=== PATIENT | female | born 1955 | race Caucasian/White ===

== ENCOUNTER → 2023-10-28 08:35 | Outpatient (REF) | payer MEDICARE, OTHER, SELFPAY | LOC: HWRAD 08:35 | PROVIDERS: ATTENDING PHYSICIAN Student in an Organized Health Care Education/Training Program | DX: R91.1 Solitary pulmonary nodule (principal); J43.9 Emphysema, unspecified | CPT/HCPCS: 71250 ==

== ENCOUNTER 2023-11-27 15:10 | Emergency (ER) | payer MEDICARE, OTHER, SELFPAY ==
[2023-11-27 15:12] VITALS: BP 98/68
--- NOTE | 2023-11-27 15:58 | ED.GENMED ---
History of Present Illness
General
Chief Complaint: Weakness
Source: patient
Exam Limitations: none
Time Seen by Provider: 11/27/23 15:49
Travel History
Have you had any contact with someone who has COVID-19?: No
Do you have any symptoms of coronavirus? Fever > 100 degrees, chills, cough, shortness of breath, sore throat, loss of taste or smell, muscle aches, or headache?: No
History of Present Illness
History of Present Illness:
See MDM
Past History
Past History
ED Past Medical History: HTN, Hypercholesterolemia and Other (Migraines, rectal bleed 09/02/2008, endometriosis, stress incontinence)
ED Past Surgical History: and Other (Laparoscopy)
Social History
Tobacco: Smoker
Alcohol: None
Drug: None
Phy Exam
Physical Exam
Physical Exam:
See MDM
Course
Orders/Labs/Results
Orders:
Orders
11/27/23 15:56
Electrocardiogram (*1) Urgent
Reason for Study: Abdominal Pain
EKG- Treatment ONCE
0.9% Sodium Chloride 1000 ml [Nss] 1,000 ml IV BOLUS
11/27/23 16:08
Complete Blood Count/With Diff Urgent
Comprehensive Metabolic Panel Urgent
Magnesium Urgent
Troponin I Urgent
Abnormal Lab Results
11/27/23
16:08
MCH 35.1 H pg
(27.0-31.0)
Abs Immat Gran (auto) 0.1 H 10^3/uL
(0-0.05)
Absolute Neuts (auto) 8.8 H 10^3/uL
(1.4-6.5)
Absolute Lymphs (auto) 0.9 L 10^3/uL
(1.2-3.4)
Absolute Monos (auto) 0.9 H 10^3/uL
(0.1-0.6)
Immature Gran % 0.6 H %
(0-0.5)
Neutrophils % 81.6 H %
(42.2-75.2)
Lymphocytes % 8.4 L %
(20.5-51.1)
Sodium 132 L mmol/L
(135-145)
Potassium 3.4 L mmol/L
(3.5-5.1)
Chloride 91 L mmol/L
(98-107)
BUN 19 H mg/dl
(7-17)
Creatinine 1.3 H mg/dL
(0.6-1.0)
Glucose 121 H mg/dl
(70-99)
AST 64 H U/L
(14-36)
Total Protein 8.6 H g/dl
(6.3-8.2)
11/27/23 16:08
11/27/23 16:08
Vital Signs
Initial and Last Documented VS:
Initial Vital Signs
Temp Pulse Resp BP Pulse Ox
98.7 F 106 20 98/68 99
11/27/23 15:12 11/27/23 15:12 11/27/23 15:12 11/27/23 15:12 11/27/23 15:12
Last Documented Vital Signs
Temp Pulse Resp BP Pulse Ox
98.7 F 75 18 124/76 99
11/27/23 15:12 11/27/23 18:24 11/27/23 18:24 11/27/23 18:24 11/27/23 18:24
MDM/Problems Addressed
Differential Diagnosis Includes:
HPI and MDM Narrative:
68-year-old female presenting for evaluation of generalized weakness and nausea. Patient states she will randomly throw up. She denies abdominal pain. Patient states she has been feeling weak and fatigue since Thursday. She denies diarrhea.
Patient states she feels like her skin is crawling. States it fontenot. Symptoms are not related to exertion or food intake.
On exam, she appears well-appearing nontoxic. She has mildly dry mucous membranes. Prior records indicate prior history of hyponatremia and hypokalemia. She was recently started on losartan. Discussed that this is less likely a side effect of
the new antihypertensive.
Physical exam
General: Well appearing and non-toxic
HEENT: protecting airway. Dry mucous
Neck: appears supple
CV: No evidence of cyanosis. Regular rate and rhythm
Resp: No accessory muscle use
Abd: Non-distended and nontender
Extremities: No deformities. No leg edema or tenderness
Neuro: alert
Psych: Normal affect
Skin: Intact
Problems Addressed including Acute and Chronic Conditions affecting care:
1. Generalized weakness
Acuity: acute
Prognosis: stable
Details: Will obtain basic blood work
2. Intermittent nausea
Acuity: acute
Prognosis: stable
Details: Will obtain EKG and troponin
3. Dehydration
Acuity: acute
Prognosis: stable
Details: Will provide IV fluids
Updates
On reevaluation after IV fluids, patient states she feels drastically better. She is dressed and walking around the room and feels comfortable going home. Patient asked me to write a prescription for her to excuse her from her flights 11/25- 12/01
Differential Diagnosis (but not limited to): Dehydration, acute kidney injury, hyponatremia,
Testing considered: Right upper quadrant ultrasound but no tenderness elicited to palpation
Drug therapy (if applicable): OTC meds, please see d/c instruction regarding Rx drugs
Amount and/or Complexity of Data Reviewed
Clinical info obtained from: Patient
External data reviewed: N/A
Labs I independently reviewed (but not limited to): Mild hypokalemia and hyponatremia
Radiology: N/A
Pulse Ox: not hypoxic
EKG independently reviewed: sinus rhythm, normal axis, no STEMI
Mutuel Machine Operator: N/A
Critical Care: N/A
Risk of Complication:
Social Determinants of health: Good social support
Discussed with other providers: N/A
Escalation of Care includes Admit/Obs: After being observed in the Emergency Department, pt stable for discharge.
Occasional wrong word or 'sound a like' substitutions may have occurred due to the inherent limitations of voice recognition software. Read the chart carefully and recognize, using context, where substitutions have occurred.
*Critical Care Note
Total Time (30-74mins, 75-104mins- exclusive of procedures): Not Applicable
ED Attending Note
-
Portions of this chart may have been created with voice recognition software.� Occasional wrong word or��sound alike� substitutions may have occurred due to the inherent limitations of voice recognition software.
Discharge Plan
Departure
Patient Disposition: Home (Routine Discharge)
Date of Disposition: 11/27/23
Time of Disposition: 19:26
Patient with high blood pressure during this ER visit?: No
Discharge Problem:
Acute hypokalemia, Acute hyponatremia
Instructions: Dehydration, Adult ED
Prescriptions:
No Action
atorvastatin 20 mg tablet
20 mg PO HS
levothyroxine 100 mcg tablet
100 mcg PO DAILY
raloxifene 60 mg tablet
60 mg PO DAILY
sertraline 50 mg tablet
50 mg PO DAILY
famotidine 40 mg Tablet
40 mg PO DAILY
amitriptyline 50 mg tablet
50 mg PO HS
celecoxib [Celebrex] 100 mg capsule
100 mg PO BID PRN (Reason: SEVERE PAIN) Qty: 10 0RF
Referrals:
Tash Escobar MD [Family Provider] -
Activity Restrictions/Additional Instructions:
Please return for any worsening symptoms.
You may return at any time if you have further concerns.
Please follow up with your doctor at the first available appointment, preferably this week.
Thank you for choosing [facility].
Interventions
Interventions:
*Risk Screen - Suicide Last Done: 11/27/23 15:12
*General Assessment Last Done: 11/27/23 15:12
*Neglect/Abuse Screening Last Done: 11/27/23 15:12
ED- Cardiac Assessment Last Done: 11/27/23 16:10
ED- Neurological Assessment Last Done: 11/27/23 16:10
ED- Pulmonary Assessment Last Done: 11/27/23 16:10
Discharge Date and Time
Print Language: SWAZI
[2023-11-27 16:07] VITALS: BP 105/70
[2023-11-27] MEDS: NSS 1000 IV (16:10)
[2023-11-27 16:26] LABS: % Basophils 0.6 % (0-2); % Eosinophils 0.4 % (0-6); % Immature Granulocytes 0.6 % (0-0.5); % Lymphocytes 8.4 % (20.5-51.1); % Monocytes 8.4 % (1.7-9.3); % Neutrophils 81.6 % (42.2-75.2); Absolute Basophils 0.1 10^3/uL (0-0.2); Absolute Immature Granulocytes 0.1 10^3/uL (0-0.05); Absolute Lymphocytes 0.9 10^3/uL (1.2-3.4); Absolute Monocytes 0.9 10^3/uL (0.1-0.6); Absolute Neutrophils 8.8 10^3/uL (1.4-6.5); Hematocrit 41.4 % (37.0-47.0); Hemoglobin 14.9 g/dL (12.0-16.0); Mean Corpuscular Hgb 35.1 pg (27.0-31.0); Mean Corpuscular Volume 97.6 fL (81.0-99.0); Nucleated Red Blood Cells % 0 %; Platelet Count 225 10^3/uL (130-400); Red Blood Cell Count 4.24 10^6/uL (4.20-5.40); Red Cell Dist. Width 12.8 % (11.5-14.5); White Blood Cell Count 10.8 10^3/uL (4.8-10.8)
[2023-11-27 16:31] LABS: ALT (SGPT) 28 U/L (0-35); AST (SGOT) 64 U/L (14-36); Alkaline Phosphatase 120 U/L (38-126); Blood Urea Nitrogen 19 mg/dl (7-17); Calcium 9.6 mg/dl (8.4-10.2); Carbon Dioxide 25 mmol/L (22-30); Chloride 91 mmol/L (98-107); Glucose 121 mg/dl (70-99); Magnesium 1.6 mg/dl (1.6-2.3); Potassium 3.4 mmol/L (3.5-5.1); Sodium 132 mmol/L (135-145); Total Bilirubin 1.1 mg/dl (0.2-1.3); Total Protein 8.6 g/dl (6.3-8.2); eGFR 44.51
[2023-11-27 16:42] LABS: Troponin I 0.013 ng/ml
[2023-11-27 17:01] VITALS: BP 106/82
[2023-11-27 18:00] VITALS: BP 124/76
[2023-11-27 18:23] VITALS: BP 119/104
[2023-11-27 18:24] VITALS: BP 124/76
== END 2023-11-27 19:35 | disposition home or self-care (01) ==
LOC: EMR 15:10
PROVIDERS: EMERGENCY PHYSICIAN Student in an Organized Health Care Education/Training Program; FAMILY PHYSICIAN Student in an Organized Health Care Education/Training Program
DX: E87.1 Hypo-osmolality and hyponatremia (principal); E87.6 Hypokalemia; F17.200 Nicotine dependence, unspecified, uncomplicated
CPT/HCPCS: 99284; 96360; 80053; 83735; 84484; 85025; 93005

== ENCOUNTER → 2023-12-04 10:28 | Outpatient (REF) | payer MEDICARE, OTHER, SELFPAY | LOC: HWRAD 10:28 | PROVIDERS: ATTENDING PHYSICIAN Student in an Organized Health Care Education/Training Program | DX: Z13.6 Encounter for screening for cardiovascular disorders (principal); F17.200 Nicotine dependence, unspecified, uncomplicated; I25.10 Atherosclerotic heart disease of native coronary artery without angina pectoris; Z82.49 Family history of ischemic heart disease and other diseases of the circulatory system | CPT/HCPCS: 76700 ==

== ENCOUNTER → 2024-01-15 13:14 | Outpatient (REF) | payer MEDICARE, OTHER, SELFPAY | LOC: HWRAD 13:14 | PROVIDERS: ATTENDING PHYSICIAN Family Medicine | DX: R51.9 Headache, unspecified (principal) | CPT/HCPCS: 70450 ==

== ENCOUNTER → 2024-01-21 14:25 | Outpatient (REF) | payer MEDICARE, OTHER, SELFPAY | LOC: HWEVLT 14:25 | PROVIDERS: ATTENDING PHYSICIAN Radiology Vascular & Interventional Radiology | DX: I83.891 Varicose veins of right lower extremity with other complications (principal) | CPT/HCPCS: 93971 ==

== ENCOUNTER 2024-11-30 15:48 | Emergency (ER) | payer MEDICARE, OTHER, SELFPAY ==
[2024-11-30 16:01] VITALS: BP 136/95
[2024-11-30] MEDS: TYLENOL ORAL SOLUTION 650 MG PO (17:26)
[2024-11-30] MEDS: TORADOL 30 MG IM (17:26)
--- NOTE | 2024-11-30 18:27 | ED.GENMED ---
History of Present Illness
General
Chief Complaint: Fall
Source: patient
Exam Limitations: none
Time Seen by Provider: 11/30/24 16:29
Nursing documentation reviewed up to this point in time: agreed with
History of Present Illness
History of Present Illness:
69-year-old female with history as noted presents for evaluation after fall. Patient was adjusting a window in her house and to do that she was standing on her couch. She lost her balance and fell backwards with left arm outstretched behind her.
She injured her left wrist. She does not believe that she hit her head and did not lose consciousness. She complains of significant pain in the left wrist that radiates towards the forearm. Worse with movement. She does report mild headache.
She denies any new neck pain�she does have chronic neck pain related to her chronic cervical fracture. She denies any chest/rib pain. Denies any back pain. Denies any pain in her legs and has been ambulatory since the fall. She denies any
numbness or weakness in her extremities. She denies being on any blood thinners. She did reportedly drink some alcohol today prior to fall.
Past History
Past History
ED Past Medical History: HTN, Hypercholesterolemia and Other (Migraines, rectal bleed 09/02/2008, endometriosis, stress incontinence)
ED Past Surgical History: and Other (Laparoscopy)
Social History
Tobacco: Smoker
Alcohol: None
Drug: None
Review of Systems
Review of Systems
All Other Systems: ROS reviewed and negative except as documented in HPI and ROS
Respiratory: Denies trouble breathing
Cardiac: Denies chest pain
ABD/GI: Denies abdominal pain or nausea
: Denies flank pain
Musculoskeletal: Reports joint pain; Denies neck pain (Chronic and unchanged) or back pain
Neurological: Reports headache; Denies weakness or numbness
Phy Exam
Physical Exam
Physical Exam:
General: Awake, alert, oriented x3; appears anxious and uncomfortable holding her left wrist
Head: Normocephalic, atraumatic
Eyes: Conjunctiva normal, pupils equal round and reactive to light bilaterally
Throat: Airway intact, handling secretions
Neck: Trachea midline, no midline cervical spine tenderness
Back: No signs of trauma the back or flank and no tenderness of the thoracic or lumbar spine
Lungs: Breathing comfortably no distress
Heart: Regular rate; no chest wall tenderness
Abd: Soft, non distended, nontender
Skin: No lacerations or abrasions noted
Extremities: Patient has deformity to left wrist with bruising on the dorsum of the wrist and tenderness over the distal radius and ulna, pain with any attempted range of motion of the left wrist; she has no reproducible tenderness in the left
forearm or elbow, no tenderness in the left shoulder; she has a strong left radial pulse, motor and sensory intact in the hand although pain with movement of the fingers; she has no signs of trauma to the right upper extremity and moves all joints
of the right upper extremity without pain; no signs of trauma to the lower extremities and moves with ease through full range of motion without pain
Scores
Heart Failure Risk
Heart Failure Risk Score: Not Applicable
Heart Score for Chest Pain Patients
STEMI patient?: Not applicable
Withdrawal Assessment of Alcohol
Withdrawal Assessment Completed?: Not applicable
Course
Orders/Labs/Results
Orders:
Orders
11/30/24 16:07
CR Elbow - Left Min 3 Views Stat
Comment:
Reason For Exam: Fall, elbow pain
CR Wrist - Left Min 3 Views Stat
Comment:
Reason For Exam: fall. left wrist pain
11/30/24 16:08
Hand, Left 3 View [CR Hand - Left Min 3 Views] Stat
Comment:
Reason For Exam: Fall, hand pain
11/30/24 17:21
CT Head W/o Iv Contrast Urgent
Comment:
Reason For Exam: fall, headache
Acetaminophen [Tylenol Oral Solution] 650 mg PO NOW STA
Ketorolac [Toradol] 30 mg IM NOW STA
11/30/24 17:22
CT Cervical Spine W/o Iv Contr Urgent
Comment:
Reason For Exam: fall, headache
11/30/24 18:31
Oxycodone [Roxicodone] 5 mg PO NOW STA
11/30/24 19:15
CR Wrist - Left Min 2 Views Urgent
Comment:
Reason For Exam: post splint/reduction
Vital Signs
Initial and Last Documented VS:
Initial Vital Signs
Temp Pulse Resp BP Pulse Ox
37.1 C 69 18 136/95 100
11/30/24 16:01 11/30/24 16:01 11/30/24 16:01 11/30/24 16:01 11/30/24 16:01
Last Documented Vital Signs
Temp Pulse Resp BP Pulse Ox
37.1 C 69 18 136/95 100
11/30/24 16:01 11/30/24 16:01 11/30/24 18:04 11/30/24 16:01 11/30/24 16:01
Procedures
Splinting/Sling Placement
Left Wrist:
Procedure completed by: Candido Roe MD
Pre-splint extermity exam: neurovascular intact
Type of splint: sugar-tong
Splint material: fiberglass
Splint checked by provider?: Yes
Type of sling: sling fitted
Normal distal neurovascular exam?: Yes
Joint/Fracture Reduction
Left Wrist:
Indication for procedure:: wrist fracture
Procedure completed by: Candido Roe MD
Consent form signed: Yes
Anesthesia/sedation: 1% Lidocaine and Regional block (hematoma block)
Injury was: closed
Further treatement: needs further treatment (ortho f/u)
Post reduction exam: stable
Capillary Refill: normal
Normal distal neurovascular exam?: Yes
MDM/Problems Addressed
Differential Diagnosis Includes:
Wrist fracture, wrist sprain, dislocation
MDM/Problems Addressed:
69-year-old female presents after mechanical fall off of her couch. She did apparently have some alcohol on board. She injured her left wrist. She does not believe she hit her head but does report a mild headache. She is not on blood thinners.
Vitals and exam as above. Plan to check CT of the head and cervical spine. She had x-rays of the hand, wrist, elbow in triage which show distal radius and ulnar fracture. Pain control; will need reduction and splinting.
CT head and cervical spine showed no acute posttraumatic findings. Patient was given pain medication and closed reduction performed using hematoma block. Splint applied. Will plan for discharge with orthopedic referral as an outpatient. Tylenol
and NSAIDs for pain control. Patient comfortable to this. All questions answered.
*Radiology
Radiology exam reviewed: preliminary read by ED provider and radiology read reviewed
*Pulse Oximetry
Patient hypoxic: no
*Critical Care Note
Total Time (30-74mins, 75-104mins- exclusive of procedures): Not Applicable
Data Reviewed
Source: patient
ED Attending Note
-
Portions of this chart may have been created with voice recognition software.� Occasional wrong word or��sound alike� substitutions may have occurred due to the inherent limitations of voice recognition software.
Discharge Plan
Departure
Patient with high blood pressure during this ER visit?: Yes
Discharge Problem:
Fracture of left wrist
Instructions: Wrist fracture
Prescriptions:
No Action
atorvastatin 20 mg tablet
20 mg PO HS
levothyroxine 100 mcg tablet
100 mcg PO DAILY
raloxifene 60 mg tablet
60 mg PO DAILY
sertraline 50 mg tablet
50 mg PO DAILY
famotidine 40 mg Tablet
40 mg PO DAILY
amitriptyline 50 mg tablet
50 mg PO HS
celecoxib [Celebrex] 100 mg capsule
100 mg PO BID PRN (Reason: SEVERE PAIN) Qty: 10 0RF
Referrals:
Shakeel Easton MD [Active, Orthopedics] - Call in 1-3 days for appt
Referral Note: Hand specialist--f/u within a week
Activity Restrictions/Additional Instructions:
Thank you for visiting the Emergency Department at [facility].
1. Please schedule a follow up appointment as directed. Call first thing tomorrow morning to make an appointment.
2. If indicated, please take your medications as instructed and indicated on discharge paperwork.
3. If any of your symptoms do not improve, or persist, or become more severe within 6-12 hours, please return to the emergency department for further care.
4. Please return to the emergency department if you develop a headache, neck pain/stiffness, fever greater than 100.4F, chest pain, shortness of breath, persistent nausea, vomiting, slurred speech, difficulty walking, numbness/tingling, weakness,
signs of infection or any other symptoms that are worrisome to you.
Please call [phone] if you have any questions.
Interventions
Interventions:
*Risk Screen - Suicide Last Done: 11/30/24 16:04
*Neglect/Abuse Screening Last Done: 11/30/24 16:04
ED-Musculoskeletal Assessment Last Done: 11/30/24 16:30
ED- Neurological Assessment Last Done: 11/30/24 16:30
ED-Skin Assessment Last Done: 11/30/24 16:30
Discharge Date and Time
Print Language: TELUGU
[2024-11-30] MEDS: ROXICODONE 5 MG PO (18:37)
--- NOTE | 2024-11-30 20:21 | EDRN ---
[employer] did not show , set up by pt's insurance co.. [employer] arrainged by charge nurse.
== END 2024-11-30 20:22 | disposition home or self-care (01) ==
LOC: EMR 15:48
PROVIDERS: EMERGENCY PHYSICIAN Emergency Medicine
DX: S52.592A Other fractures of lower end of left radius, initial encounter for closed fracture (principal); W19.XXXA Unspecified fall, initial encounter; E78.00 Pure hypercholesterolemia, unspecified; I10 Essential (primary) hypertension; F17.200 Nicotine dependence, unspecified, uncomplicated
CPT/HCPCS: 99284; 25605; 96372; 70450; 72125; 73080; 73100; 73110; 73130

== ENCOUNTER 2025-01-06 19:07 | Inpatient (IN) | payer MEDICARE, OTHER, SELFPAY ==
[2025-01-06] VITALS (8 sets, daily range): BP systolic 127–179; BP diastolic 80–99; BMI 21.3; BMI 21.2
[2025-01-06 12:44] LABS: Hematocrit 32.4 % (37.0-47.0); Hemoglobin 11.3 g/dL (12.0-16.0); Mean Corp Hgb Conc. 34.9 g/dL (33.0-37.0); Mean Corpuscular Volume 101.6 fL (81.0-99.0); Nucleated Red Blood Cells % 0 %; Platelet Count 188 10^3/uL (130-400); Red Cell Dist. Width 13.3 % (11.5-14.5)
--- NOTE | 2025-01-06 13:07 | ED.GENMED ---
History of Present Illness
<Manju Liriano PA-C - Last Filed: 01/07/25 18:22>
General
Chief Complaint: Rectal Bleeding
Source: patient
Exam Limitations: none
Time Seen by Provider: 01/06/25 12:41
Nursing documentation reviewed up to this point in time: agreed with
History of Present Illness
History of Present Illness:
Patient is a 69-year-old female with history hypertension, hyperlipidemia who presents to the emergency department for evaluation of lower abdominal pain. Patient states that on Thursday, 5 days ago, she had an episode of significant bloody diarrhea
and dry heaves. She denies any additional episodes of diarrhea or dry heaves however states over the past 2 days she has been extremely weak. She reports very little appetite and lower abdominal pain. Patient denies any dysuria or hematuria. She
denies any nausea or vomiting.
Patient is not on any oral anticoagulation.
She denies any history of similar symptoms.
Past History
<Manju Liriano PA-C - Last Filed: 01/07/25 18:22>
Past History
ED Past Medical History: HTN, Hypercholesterolemia and Other (Migraines, rectal bleed 09/02/2008, endometriosis, stress incontinence)
ED Past Surgical History: and Other (Laparoscopy)
Social History
Tobacco: Smoker
Alcohol: None
Drug: None
Review of Systems
<Manju Liriano PA-C - Last Filed: 01/07/25 18:22>
Review of Systems
Allergies reviewed?: Yes
All Other Systems: ROS reviewed and negative except as documented in HPI and ROS
Phy Exam
<Manju Liriano PA-C - Last Filed: 01/07/25 18:22>
Physical Exam
Physical Exam:
Vitals: Mildly tachycardic, otherwise vital signs stable. Afebrile
General: Patient is well appearing, no acute distress
Skin: Warm and dry, no rashes or lesions
Head: Normocephalic, atraumatic
Eyes: Sclera nonicteric.
Throat: Protecting airway
Neck: Normal ROM, no cervical spine tenderness, no meningismus
Cardiac: Regular rate and rhythm, no murmurs.
Pulm: Normal respiratory effort, no wheezes, rales, rhonchi heard on exam
Abdomen: Abdomen soft. Moderate tenderness left lower quadrant voluntary guarding. No CVA tenderness.
Rectal: No stool in vault. No obvious bleeding or melena.
Extremities: No evidence of cyanosis or edema. 2+ palpable DP pulses bilaterally. Cast in place left wrist.
Neuro: AAOx3. Grossly intact.
Psychiatric: Normal affect.
Course
<Manju Liriano PA-C - Last Filed: 01/07/25 18:22>
Orders/Labs/Results
Orders:
Orders
01/06/25 12:34
Complete Blood Count/With Diff Urgent
01/06/25 13:18
Electrocardiogram (*1) Urgent
Reason for Study: Fatigue / Weakness
EKG- Treatment ONCE
0.9% Sodium Chloride 1000 ml [Nss] 1,000 ml IV BOLUS
01/06/25 13:24
Basic Metabolic Panel Urgent
Osmolality, Random Urine Urgent
Date Specimen was Collected: 01/06/25
Time Specimen was Collected: 13:20
Comment: ADDON
Urinalysis Reflex To Culture Urgent
Date Specimen was Collected: 01/06/25
Time Specimen was Collected: 13:20
Urine Microscopic Reflex Cult Urgent
01/06/25 14:17
CT Pe/abd/pel W Urgent
Reason For Exam: SOB, tachycardia
01/06/25 14:24
CR Chest Portable - 1 View Urgent
Comment:
Reason For Exam: SOB, tachy
Reason Study Needs to be Portable: Unable to Transport
01/06/25 14:41
Add On- LAB Urgent
Tests Added?: pro-bnp
01/06/25 14:47
Ipratropium/Albuterol Sulfate [Duoneb] 3 ml INH R NOW STA
MethylPREDNISolone PF [Solu-Medrol Pf] 125 mg IV NOW STA
01/06/25 15:20
NT-proBNP Urgent
Troponin I Urgent
01/06/25 17:14
Furosemide [Lasix] 20 mg IV NOW STA
Piperacillin/Tazo 3.375 Gram [Zosyn] 3.375 gram in 50 ml IV NOW
01/06/25 17:15
Add On- LAB Urgent
Tests Added?: serum osmolality, serum osmolality, serum sodium
01/06/25 17:17
Magnesium Urgent
Comment: ADDON
Potassium Urgent
Serum Osmolality Urgent
Comment: ADD ON
Sodium Urgent
Comment: ADD ON
TSH Reflex To Free T4 Urgent
Comment: ADDON
01/06/25 17:59
COVID-19 Antigen Urgent
Source: Nasal Swab
Lactate Level [Lactic Acid] Urgent
Influenza A+B Rapid Molecular Urgent
NOEMÍ Source: Nasal Swab
Specimen Description:
01/06/25 18:09
Add On- LAB Routine
Tests Added?: Urine Osmo, TSH with free T4 reflex, mag
Potassium Chloride [KCl] 40 meq PO NOW STA
Potassium Chloride [KCl] 40 meq 0.9% Sodium Chloride 250 ml [Nss] 250 ml IV NOW
01/06/25 18:17
Admit/Transfer Patient As Directed
Co-Sign Provider:
Level of Care: Inpatient admission
Assign to:: Telemetry
Physician / Group: cristina harrell
Diagnosis: acute severe colitis, sob likely copd exac , hypoNA, hypoK
Reason for Telemetry: Arrhythmia
Date to Stop Telemetry: 01/09/25
Time to Stop Telemetry: 11:00
Reason for Hospitalization: acute severe colitis, sob likely copd exac , hypoNA, hypoK
Expected length of stay greater than two midnights?: Yes
ELOS- Estimated Length of Stay in days: 5
I certify the patient meets the requirements for IP care: Yes
Code Status As Directed
Resuscitation Status: Full Code
01/06/25 18:21
PRN Pain Medication Management As Directed
May give lesser potent ordered pain med per pt: Yes
preference::
Protocol:: Medication orders for pain may be administered in a
manner that supports deferring to patient preference
when the pt is:
- Requesting an ordered lesser potent pain medication.
Least to most potent pain medications are defined
as: acetaminophen < NSAID < tramadol < opioids
(morphine, oxycodone, hydromorphone).
- Requesting a lesser dose of the same medication IF
ORDERED.
- Requesting a less intrusive route of administration
if both routes are prescribed by the provider (PO <
IV).
01/06/25 20:03
0.9% Sodium Chloride [Nss (Preservative Free)] See Protocol IV PRN PRN
Acetaminophen [Tylenol] 650 mg PO Q4HPRN PRN
FOLic ACID [Folvite] 1 mg 0.9% Sodium Chloride 50 ml [Nss] 50 ml IV DAILYPRN
Ipratropium/Albuterol Sulfate [Duoneb] 3 ml INH R Q4HPRN PRN
Lorazepam [Ativan] 1 mg PO Q2HPRN PRN
Lorazepam [Ativan] 2 mg IV Q1HPRN PRN
Thiamine Injection 200 mg IV Q12
01/06/25 20:03
Case Management Consult Once
Case Management Consult: Other
Comment: Substance abuse counseling
DIETARY IP CONSULT Routine
Reason for Consult: Nutrition support, possible refeeding guidelines
Urine Drug Abuse Screen Routine
Date Specimen was Collected: 01/07/25
Time Specimen was Collected: 00:18
Activity As Directed
Activity Level: As Tolerated
Intake/ Output As Directed
Frequency: Per unit guidelines
MSAS SCORE As Directed
MSAS Score 0-4: Repeat MSAS every 2 hours until 0-4 for three consecutive assessments, then every 4 hours x 48
hours.
MSAS Score 5-7: For MILD withdrawl symptoms. Repeat MSAS and RASS every 2 hours
MSAS Score 8-11: For MODERATE withdrawal symptoms. Repeat MSAS and RASS every 1 hour. Consider ICU or IMU
level of care.
MSAS Score > 11: For SEVERE withdrawal symptoms. Repeat MSAS and RASS every 1 hour. Notify provider, consider
ICU level of care.
MSAS Additional Instructions: If no improvement or no decrease in score from severe to moderate within 12
hours, consult psychiatry
MSAS Notify Provider: Notify provider if patient requires more than 10 mg of Lorazepam in eight hour period.
Sequential Compression Device [Pneumatic Compression Sleeves] As Directed
Type: Knee high
Vital Signs As Directed
Frequency: Per unit guidelines
Weight As Directed
Frequency: Daily
O2 Therapy [RESP] Routine
Nasal Cannula Liter Flow: 2 LPM
Titrate/Wean O2 to maintain O2 sat greater than (%): 92
Pulse Ox/spot Check [RESP] Routine
Quantity: 1
Smoking Cessation Counseling [RESP] Routine
Pt Eval And Treat Routine
Activity Level: As Tolerated
DX Deep Vein Thrombosis Video Routine
01/06/25 20:09
Lorazepam [Ativan] 1 mg PO Q1HPRN PRN
01/06/25 22:00
Losartan [Cozaar] 12.5 mg PO HS
Sertraline HCl [Zoloft] 50 mg PO HS
01/06/25 22:34
Alcohol Urgent
B-Hydroxybutyrate Urgent
GGTP Urgent
Magnesium Urgent
Phosphorus Urgent
01/07/25 06:00
Levothyroxine [Synthroid] 75 mcg PO DAILY @ 0600
01/07/25 06:25
Complete Blood Count/With Diff IN AM
Comprehensive Metabolic Panel IN AM
01/07/25 08:00
FOLic ACID [Folvite] 1 mg PO DAILY
01/09/25 11:00
DC Protocol for Telemetry ONCE
01/09/25 20:00
Thiamine HCl [Vitamin B1] 100 mg PO BID
Abnormal Lab Results
01/06/25 01/06/25 01/06/25
12:34 13:24 17:17
WBC 15.5 H 10^3/uL
(4.8-10.8)
RBC 3.19 L 10^6/uL
(4.20-5.40)
Hgb 11.3 L g/dL
(12.0-16.0)
Hct 32.4 L %
(37.0-47.0)
MCV 101.6 H fL
(81.0-99.0)
MCH 35.4 H pg
(27.0-31.0)
Abs Immat Gran (auto) 0.2 H 10^3/uL
(0-0.05)
Absolute Neuts (auto) 12.6 H 10^3/uL
(1.4-6.5)
Absolute Lymphs (auto) 0.7 L 10^3/uL
(1.2-3.4)
Absolute Monos (auto) 1.9 H 10^3/uL
(0.1-0.6)
Immature Gran % 1.5 H %
(0-0.5)
Neutrophils % 80.8 H %
(42.2-75.2)
Lymphocytes % 4.2 L %
(20.5-51.1)
Monocytes % 12.5 H %
(1.7-9.3)
Sodium 126 L mmol/L 127 L mmol/L
(135-145) (135-145)
Potassium 2.9 L mmol/L
(3.5-5.1)
Chloride 93 L mmol/L
(98-107)
Carbon Dioxide 20 L mmol/L
(22-30)
Creatinine 0.5 L mg/dL
(0.6-1.0)
Serum Osmolality 263 L mOsm/kg
(275-300)
Urine Ketones 3+ A
(Negative)
Urine Urobilinogen 2+ A
(Neg - 1+)
Urine RBC 3-6 A /HPF
(0-2)
Urine Bacteria (Reflex) Few A
(Negative)
Urine Albumin (Reflex) 2+ A
(Neg - Trace)
01/06/25 12:34
01/06/25 17:17
Vital Signs
Initial and Last Documented VS:
Initial Vital Signs
Temp Pulse Resp BP Pulse Ox
98.5 F 103 15 147/80 95
01/06/25 12:20 01/06/25 12:20 01/06/25 12:20 01/06/25 12:20 01/06/25 12:20
Last Documented Vital Signs
Temp Pulse Resp BP Pulse Ox
97.4 F 97 18 113/64 95
01/07/25 15:12 01/07/25 15:43 01/07/25 15:43 01/07/25 15:12 01/07/25 15:43
Avelt;Mikhail Barboza, DO - Last Filed: 01/06/25 14:47>
Orders/Labs/Results
Orders:
Orders
01/06/25 12:34
Complete Blood Count/With Diff Urgent
01/06/25 13:18
Electrocardiogram (*1) Urgent
Reason for Study: Fatigue / Weakness
EKG- Treatment ONCE
0.9% Sodium Chloride 1000 ml [Nss] 1,000 ml IV BOLUS
01/06/25 13:24
Basic Metabolic Panel Urgent
Osmolality, Random Urine Urgent
Date Specimen was Collected: 01/06/25
Time Specimen was Collected: 13:20
Comment: ADDON
Urinalysis Reflex To Culture Urgent
Date Specimen was Collected: 01/06/25
Time Specimen was Collected: 13:20
Urine Microscopic Reflex Cult Urgent
01/06/25 14:17
CT Pe/abd/pel W Urgent
Reason For Exam: SOB, tachycardia
01/06/25 14:24
CR Chest Portable - 1 View Urgent
Comment:
Reason For Exam: SOB, tachy
Reason Study Needs to be Portable: Unable to Transport
01/06/25 14:41
Add On- LAB Urgent
Tests Added?: pro-bnp
01/06/25 14:47
Ipratropium/Albuterol Sulfate [Duoneb] 3 ml INH R NOW STA
MethylPREDNISolone PF [Solu-Medrol Pf] 125 mg IV NOW STA
01/06/25 15:20
NT-proBNP Urgent
Troponin I Urgent
01/06/25 17:14
Furosemide [Lasix] 20 mg IV NOW STA
Piperacillin/Tazo 3.375 Gram [Zosyn] 3.375 gram in 50 ml IV NOW
01/06/25 17:15
Add On- LAB Urgent
Tests Added?: serum osmolality, serum osmolality, serum sodium
01/06/25 17:17
Magnesium Urgent
Comment: ADDON
Potassium Urgent
Serum Osmolality Urgent
Comment: ADD ON
Sodium Urgent
Comment: ADD ON
TSH Reflex To Free T4 Urgent
Comment: ADDON
01/06/25 17:59
COVID-19 Antigen Urgent
Source: Nasal Swab
Lactate Level [Lactic Acid] Urgent
Influenza A+B Rapid Molecular Urgent
NOEMÍ Source: Nasal Swab
Specimen Description:
01/06/25 18:09
Add On- LAB Routine
Tests Added?: Urine Osmo, TSH with free T4 reflex, mag
Potassium Chloride [KCl] 40 meq PO NOW STA
Potassium Chloride [KCl] 40 meq 0.9% Sodium Chloride 250 ml [Nss] 250 ml IV NOW
01/06/25 18:17
Admit/Transfer Patient As Directed
Co-Sign Provider:
Level of Care: Inpatient admission
Assign to:: Telemetry
Physician / Group: cristina harrell
Diagnosis: acute severe colitis, sob likely copd exac , hypoNA, hypoK
Reason for Telemetry: Arrhythmia
Date to Stop Telemetry: 01/09/25
Time to Stop Telemetry: 11:00
Reason for Hospitalization: acute severe colitis, sob likely copd exac , hypoNA, hypoK
Expected length of stay greater than two midnights?: Yes
ELOS- Estimated Length of Stay in days: 5
I certify the patient meets the requirements for IP care: Yes
Code Status As Directed
Resuscitation Status: Full Code
01/06/25 18:21
PRN Pain Medication Management As Directed
May give lesser potent ordered pain med per pt: Yes
preference::
Protocol:: Medication orders for pain may be administered in a
manner that supports deferring to patient preference
when the pt is:
- Requesting an ordered lesser potent pain medication.
Least to most potent pain medications are defined
as: acetaminophen < NSAID < tramadol < opioids
(morphine, oxycodone, hydromorphone).
- Requesting a lesser dose of the same medication IF
ORDERED.
- Requesting a less intrusive route of administration
if both routes are prescribed by the provider (PO <
IV).
01/06/25 20:03
0.9% Sodium Chloride [Nss (Preservative Free)] See Protocol IV PRN PRN
Acetaminophen [Tylenol] 650 mg PO Q4HPRN PRN
FOLic ACID [Folvite] 1 mg 0.9% Sodium Chloride 50 ml [Nss] 50 ml IV DAILYPRN
Ipratropium/Albuterol Sulfate [Duoneb] 3 ml INH R Q4HPRN PRN
Lorazepam [Ativan] 1 mg PO Q2HPRN PRN
Lorazepam [Ativan] 2 mg IV Q1HPRN PRN
Thiamine Injection 200 mg IV Q12
01/06/25 20:03
Case Management Consult Once
Case Management Consult: Other
Comment: Substance abuse counseling
DIETARY IP CONSULT Routine
Reason for Consult: Nutrition support, possible refeeding guidelines
Urine Drug Abuse Screen Routine
Date Specimen was Collected: 01/07/25
Time Specimen was Collected: 00:18
Activity As Directed
Activity Level: As Tolerated
Intake/ Output As Directed
Frequency: Per unit guidelines
MSAS SCORE As Directed
MSAS Score 0-4: Repeat MSAS every 2 hours until 0-4 for three consecutive assessments, then every 4 hours x 48
hours.
MSAS Score 5-7: For MILD withdrawl symptoms. Repeat MSAS and RASS every 2 hours
MSAS Score 8-11: For MODERATE withdrawal symptoms. Repeat MSAS and RASS every 1 hour. Consider ICU or IMU
level of care.
MSAS Score > 11: For SEVERE withdrawal symptoms. Repeat MSAS and RASS every 1 hour. Notify provider, consider
ICU level of care.
MSAS Additional Instructions: If no improvement or no decrease in score from severe to moderate within 12
hours, consult psychiatry
MSAS Notify Provider: Notify provider if patient requires more than 10 mg of Lorazepam in eight hour period.
Sequential Compression Device [Pneumatic Compression Sleeves] As Directed
Type: Knee high
Vital Signs As Directed
Frequency: Per unit guidelines
Weight As Directed
Frequency: Daily
O2 Therapy [RESP] Routine
Nasal Cannula Liter Flow: 2 LPM
Titrate/Wean O2 to maintain O2 sat greater than (%): 92
Pulse Ox/spot Check [RESP] Routine
Quantity: 1
Smoking Cessation Counseling [RESP] Routine
Pt Eval And Treat Routine
Activity Level: As Tolerated
DX Deep Vein Thrombosis Video Routine
01/06/25 20:09
Lorazepam [Ativan] 1 mg PO Q1HPRN PRN
01/06/25 22:00
Losartan [Cozaar] 12.5 mg PO HS
Sertraline HCl [Zoloft] 50 mg PO HS
01/06/25 22:34
Alcohol Urgent
B-Hydroxybutyrate Urgent
GGTP Urgent
Magnesium Urgent
Phosphorus Urgent
01/07/25 06:00
Levothyroxine [Synthroid] 75 mcg PO DAILY @ 0600
01/07/25 06:25
Complete Blood Count/With Diff IN AM
Comprehensive Metabolic Panel IN AM
01/07/25 08:00
FOLic ACID [Folvite] 1 mg PO DAILY
01/09/25 11:00
DC Protocol for Telemetry ONCE
01/09/25 20:00
Thiamine HCl [Vitamin B1] 100 mg PO BID
Abnormal Lab Results
01/06/25 01/06/25 01/06/25
12:34 13:24 17:17
WBC 15.5 H 10^3/uL
(4.8-10.8)
RBC 3.19 L 10^6/uL
(4.20-5.40)
Hgb 11.3 L g/dL
(12.0-16.0)
Hct 32.4 L %
(37.0-47.0)
MCV 101.6 H fL
(81.0-99.0)
MCH 35.4 H pg
(27.0-31.0)
Abs Immat Gran (auto) 0.2 H 10^3/uL
(0-0.05)
Absolute Neuts (auto) 12.6 H 10^3/uL
(1.4-6.5)
Absolute Lymphs (auto) 0.7 L 10^3/uL
(1.2-3.4)
Absolute Monos (auto) 1.9 H 10^3/uL
(0.1-0.6)
Immature Gran % 1.5 H %
(0-0.5)
Neutrophils % 80.8 H %
(42.2-75.2)
Lymphocytes % 4.2 L %
(20.5-51.1)
Monocytes % 12.5 H %
(1.7-9.3)
Sodium 126 L mmol/L 127 L mmol/L
(135-145) (135-145)
Potassium 2.9 L mmol/L
(3.5-5.1)
Chloride 93 L mmol/L
(98-107)
Carbon Dioxide 20 L mmol/L
(22-30)
Creatinine 0.5 L mg/dL
(0.6-1.0)
Serum Osmolality 263 L mOsm/kg
(275-300)
Urine Ketones 3+ A
(Negative)
Urine Urobilinogen 2+ A
(Neg - 1+)
Urine RBC 3-6 A /HPF
(0-2)
Urine Bacteria (Reflex) Few A
(Negative)
Urine Albumin (Reflex) 2+ A
(Neg - Trace)
01/06/25 12:34
01/06/25 17:17
Vital Signs
Initial and Last Documented VS:
Initial Vital Signs
Temp Pulse Resp BP Pulse Ox
98.5 F 103 15 147/80 95
01/06/25 12:20 01/06/25 12:20 01/06/25 12:20 01/06/25 12:20 01/06/25 12:20
Last Documented Vital Signs
Temp Pulse Resp BP Pulse Ox
97.4 F 97 18 113/64 95
01/07/25 15:12 01/07/25 15:43 01/07/25 15:43 01/07/25 15:12 01/07/25 15:43
<Manju Liriano PA-C - Last Filed: 01/07/25 18:22>
MDM/Problems Addressed
Differential Diagnosis Includes:
Not limited to: Acute dehydration, gastroenteritis, diverticulitis, intra-abdominal abscess, bowel perforation, constipation, etc.
MDM/Problems Addressed:
69-year-old female presenting with persistent lower abdominal pain and weakness following significant episode of bloody diarrhea 5 days prior to arrival. She has had no additional episodes of bloody stools. No nausea, vomiting, or fever. Patient
mildly tachycardic and hypertensive on arrival. Otherwise stable. She is afebrile. On exam�patient somewhat frail-appearing. Abdomen soft with moderate tenderness in left lower abdomen. No stool in vault for fecal occult blood testing.
Cardio/pulmonary assessment unremarkable. Differential broad. Given significant weakness and recent bloody stool�concern for symptomatic anemia versus infectious process. ED plan: Check labs, urine, CT abdomen/pelvis. Will closely monitor and
reassess
Update: Labs reviewed. Leukocytosis of 15.5. Hemoglobin of 11.3. Chemistry reveals hyponatremia. Urine does not appear infected. CT pending.
Update: After getting up to the bathroom patient became acutely tachycardic and hypoxic. She was placed on supplemental oxygen via nasal cannula with improvement in O2 saturation. Degree of shortness of breath does not correlate with level of
anemia. A portable chest x-ray was obtained without acute abnormalities. Troponin and BNP normal. Will check CTA chest to rule out pulmonary embolism and proceed with CT abdomen/pelvis for further evaluation. Given history of COPD�patient was
given steroids and DuoNeb.
Update: CTA chest without evidence of pulmonary embolism however does note groundglass opacity throughout bilateral lung wren which I suspect is likely inflammatory pneumonitis. Do not suspect pneumonia. BNP not indicative of pulmonary edema and
she does not appear fluid overloaded on exam. CT abdomen/pelvis reveals severe colitis in sigmoid colon. There is also note made of possible thickened endometrium concerning for endometrial hemorrhage or carcinoma�discussed with patient will need
further outpatient follow-up. Attempted bimanual exam however patient unable to tolerate however no clear evidence of bleeding at this time.
Suspect respiratory distress secondary to pneumonitis. Abdominal pain likely attributable to severe colitis. Given leukocytosis�will start patient on IV antibiotics. Patient will require admission to the hospital for further evaluation/monitoring
of respiratory status, colitis, hyponatremia. Patient accepted to the hospitalist service in stable condition.
Chronic conditions affecting care:
Hypertension
Acute Exacerbation and/or Progression of Chronic Illness:
Acutely hypertensive
<Manju Liriano PA-C - Last Filed: 01/07/25 18:22>
*Radiology
Radiology exam reviewed: radiology read reviewed
*Pulse Oximetry
SaO2: 95
Oxygen Mode of Delivery: Room air
Patient hypoxic: no
*EKG
Interpreted by ED Provider?: Yes
EKG Intrepretation Date: 01/06/25
Interpretation: abnormal
Comparison EKG: changes noted
Heart Rate: 102
Rate: tachycardiac
Rhythm: sinus
[place]: normal axis
Interval: normal QT interval
QRS Pattern: normal QRS
Ischemia: non-specific ST changes
*Rubber And Pounder Interpretation
Rate: tachycardiac
Interpretation: abnormal
Heart Rate: 102
Rhythm: sinus
*Critical Care Note
Total Time (30-74mins, 75-104mins- exclusive of procedures): Not Applicable
<Manju Liriano PA-C - Last Filed: 01/07/25 18:22>
Patient Management
Discussion with other providers: Hospitalist
Escalation/DeEscalation of care consider admission/obs:
Admit for IV antibiotics, further management
ED Attending Note
<Manju Liriano PA-C - Last Filed: 01/07/25 18:22>
-
Portions of this chart may have been created with voice recognition software.� Occasional wrong word or��sound alike� substitutions may have occurred due to the inherent limitations of voice recognition software.
<Mikhail Barboza DO - Last Filed: 01/06/25 14:47>
ED Attending Note
Patient seen and examined by attending physician: Yes
I performed the substantive portion of visit, reviewed & personally made and approve the management plan that is documented in note by myself or LUIS ALBERTO.: Yes
ED Attending Note:
Hemoglobin is somewhat lower than prior however she has not had rectal bleeding in about 5 days. Mild leukocytosis is noted. While in ED she became more tachycardic and described more shortness of breath. Her breath sounds are fairly clear. I
reviewed the portable chest x-ray of note, sodium is low at 126. She does have a history of pack-a-day smoker for many years but denies a history of COPD/emphysema. Nebs and steroids.
Discharge Plan
Departure
Patient Disposition: Admit
Date of Disposition: 01/06/25
Time of Disposition: 17:16
Presentation/result/management discussed w/ accepting MD/DO: Hospitalist
Discharge Problem:
Colitis, Acute hyponatremia, Acute hypoxemic respiratory failure
Interventions
Interventions:
*Risk Screen - Suicide Last Done: 01/06/25 21:00
*General Assessment Last Done: 01/06/25 12:20
*Neglect/Abuse Screening Last Done: 01/06/25 12:20
*ED- Fall Risk Assessment Last Done: 01/06/25 12:20
*ED COVID-19 Vaccine History Last Done: 01/06/25 21:00
*Nursing Disposition Last Done: 01/06/25 19:57
UE-Oqdfyb-Jwplhuvzxj Assessment Last Done: 01/06/25 12:20
ED- Cardiac Assessment Last Done: 01/06/25 12:20
ED- Pulmonary Assessment Last Done: 01/06/25 12:20
Discharge Date and Time
Discharge Date/Time: 01/06/25 19:57
[2025-01-06] MEDS: NSS 1000 IV (13:25)
[2025-01-06 14:04] LABS: Blood Urea Nitrogen 12 mg/dl (7-17); Calcium 8.5 mg/dl (8.4-10.2); Carbon Dioxide 20 mmol/L (22-30); Chloride 93 mmol/L (98-107); Estimated Creatinine Clearance 60 ml/min; Glucose 90 mg/dl (70-99); Sodium 126 mmol/L (135-145); eGFR > 60.00
[2025-01-06 14:27] LABS: Urine Character Clear (Clear)
[2025-01-06] MEDS: SOLU-MEDROL PF 125 MG IV (14:54)
[2025-01-06] MEDS: DUONEB 3 ML INH (14:54)
[2025-01-06 15:50] LABS: Troponin I < 0.012 ng/ml
[2025-01-06] MEDS: LASIX 20 MG IV (17:20)
[2025-01-06] MEDS: ZOSYN 50 IV ×2 (17:20→23:50)
--- NOTE | 2025-01-06 17:31 | HPS.HSE ---
Family Physician
-
Family Physician: Jess Mar DO
Chief Complaint
-
Generalized abdominal pain episode of dark brown stool with deep maroon color 5 days ago and persistent abdominal pain
History of Present Illness
69-year-old female from home where she lives alone, complaining of lower abdominal pain that started on Thursday 5 days ago with an episode of bloody diarrhea and dry heaves. She reports over the past 2 days she has been extremely weak with little
appetite and some lower abdominal discomfort. Post IV fluids in the ER she became short of breath getting up to the bathroom was given DuoNeb and Solu-Medrol and 20 Lasix suspecting pulmonary edema from fluids. The patient denies fever, chills,
chest pain, palpitations, cough, nausea, diarrhea, urinary symptoms. Patient reports that she was seen on 11/30/2024 after standing on her sofa trying to reach the cart and she fell and fractured her distal radius she currently has a blue cast in
place and was to follow-up with Dr. Easton tomorrow 01/07/2025 for removal. She states she smokes 1 pack a day x 48 years she drinks 4 to 6 ounces of rum and coke nightly over the past 22 years after fracturing her neck. She was made aware upon
discharge to reschedule that appointment. She has past medical history of rectal bleed 09/02/2008, [place] 2 years ago diverticulosis somewhere [place], alcohol use disorder, nicotine abuse/COPD hypertension, hyperlipidemia, migraines, stress
incontinence urine, endometriosis status post , hypothyroidism, anxiety/depression, falls, GERD, osteoporosis, chronic pain syndrome, endplate L5 fracture likely on 11/30/2024 after fall
Medical History
Past Medical History
Past Medical History: Reports Other
Additional Past Medical History:
Distal radius fracture 11/30/2024
endplate fracture L5 11/30/2024
rectal bleed 09/02/2008
[place] 2 years ago diverticulosis somewhere [place]
Alcohol use disorder,
nicotine abuse 1 pack a day x 48 years/COPD
hypertension
hyperlipidemia
migraines
stress incontinence urine
endometriosis status post
hypothyroidism
anxiety/depression
falls
GERD
osteoporosis
chronic pain syndrome
Past Surgical History: Reports Other
Additional Past Surgical History:
Section
colonoscopy 2 years ago diverticulosis somewhere near [facility]
Social History
Tobacco: Smoker (1 pack a day x 48 years)
Alcohol: Daily (4 to 6 ounces of rum and coke daily)
Personal: Single
Living: Alone
Employment: Retired
Family History
Family History: Not pertinent
Allergies / Home Medications
Allergies reflects when Allergies were last updated in [facility].
Home Medications with original date entered in [facility]
Allergy/Medication List:
Allergies
Allergy/AdvReac Type Severity Reaction Status Date / Time
alendronate sodium (From Allergy Unknown Unknown Verified 11/30/24 16:04
Fosamax)
clindamycin Allergy Unknown Rash Verified 11/30/24 16:04
trimethobenzamide HCl (From Allergy felt like Verified 11/30/24 16:04
Tigan) she was
climbing
the wall
Home Medications
sertraline 50 mg tablet 50 mg PO HS Depression 12/09/22
levothyroxine 75 mcg tablet (Synthroid) 75 mcg PO DAILY 01/06/25
losartan 25 mg tablet 12.5 mg PO HS 01/06/25
Review of Systems
-
History Source: Patient
A 12 point ROS was completed and negative except as noted: Yes
Constitutional: Denies Fever or Chills
EENT: Denies Sore Throat or Runny Nose
Respiratory: Reports Trouble Breathing; Denies Cough
Cardiac: Denies Chest Pain, Diaphoresis, Palpitations or Syncope
Abdomen/GI: Reports Abdominal Pain (Generalized), Nausea and Bloody Stools (Dark brown stool with deep maroon color around stool and toilet x 1 episode 5 days ago); Denies Vomiting, Diarrhea or Constipated
: Denies Dysuria, Frequency, Flank Pain, Incontinence, Difficulty Voiding or Urgency
Musculoskeletal: Reports Other (Blue cast present to left arm due to recent distal radius fracture sensation intact distally); Denies Joint Pain
Skin: Denies Itching or Rash
Neurological: Denies Dizzy, Headache or Weakness
Endocrine: Reports No Symptoms
Hematologic/Lymphatic: Reports No Symptoms
Psych: Reports Calm
Physical Exam
Vital Signs
Vital Signs
Temp Pulse Resp BP Pulse Ox
98.5 F 100 16 179/82 93
01/06/25 12:20 01/06/25 16:06 01/06/25 16:10 01/06/25 16:06 01/06/25 16:06
Physical Exam
General: Conversant; No Pain, Fever or Chills
HEENT: NormoCephalic, Anicteric, PERRLA, [place] Conjunctivae, No Ptosis and Oxygen (2 L nasal cannula)
Respiratory: Clear; No Wheezes, Rales or Rhonchi
Cardiac: S1/S2 and Regular Rhythm; No Tachycardia, Murmur, Rub, Gallop or Peripheral Edema
Breast: Deferred by me
GI: Soft, Normal Bowel Sounds and Tender (Generalized but increased left lower quadrant)
Rectal: Deferred by Provider
Genito-urinary: Deferred by me
Musculoskeletal: No Clubbing, No Cyanosis, No Edema and Other (Blue cast present to left arm due to recent distal radius fracture sensation intact distally)
Skin: Warm and Dry; No Rash or Jaundice
Neuro: AO x 3, No Motor Deficits, Nonfocal/grossly intact, Cranial Nerves Intact and No Sensory Deficits; No Slurred Speech, Facial Droop, Tremors or Sedated
Psych: Calm
Laboratory Results
-
01/06/25 12:34
Laboratory Results
Total Bilirubin Cancelled 01/06/25 13:24
AST Cancelled 01/06/25 13:24
ALT Cancelled 01/06/25 13:24
Alkaline Phosphatase Cancelled 01/06/25 13:24
Troponin I < 0.012 ng/ml 01/06/25 15:20
Data Reviewed
-
Diagnostic Radiology: Report Reviewed by me
CT Scan: Report Reviewed by me
Lab Data: Labs Reviewed by me
Impression/Plan
-
Impression/plan:
Admit to telemetry
#Acute sigmoid colitis
Rectal bleed 09/02/2008, reports history of colonoscopy 2 years ago diverticulosis somewhere near [facility]
Bloody diarrhea with lower abdominal pain 5 days ago
WBC 15.5 with left shift, 90 8.5F, HR 100
-IV Zosyn
- Follow CBC, CMP
ABDOMEN and PELVIS:
1. SEVERE ACUTE COLITIS in the SIGMOID COLON and distal descending colon. Mild colitis throughout the ascending colon and proximal descending colon. Diagnostic possibilities are (1) an acute infectious colitis,
(2) acute inflammatory bowel disease (ulcerative colitis), or (3) acute ischemic colitis (less likely given the distribution within the colon).
2. Thickened high attenuation endometrium (possibly endometrial hemorrhage or carcinoma).
3. Mild diffuse urinary bladder wall thickening and small urinary bladder diverticula.
4. Acute inferior endplate fracture of L5.
5. Severe facet joint arthrosis at L4/L5 and L5/S1.
#Acute dyspnea/status post activity and IV fluids likely COPD Concern possible pneumonitis
Shortness of breath tachypnea post IV fluids 1250 cc and TSE
93% RA, BNP 726
- IV Lasix 20 mg given in ER will follow urine output
Patient given methylprednisone 125 mg in ER will hold on further steroids as there is no current wheezing or hypoxia
- Check 2D echo
- Check COVID/influenza, lactic acid
CXR: Moderate elevation right hemidiaphragm new compared to prior chest x-ray, suggestion of COPD
05/06/2020 two 2D echo: EF 55-60%, normal LVS LVSF, no wall abnormalities mild LVH normal diastolic function normal PASP
CT PE abdomen pelvis with contrast:
CHEST CTA:
1. SEVERE GROUND-GLASS OPACITY throughout the left upper and lower lobes, right upper lobe, and right middle lobe mixed with increased interstitial markings which is new from 10/28/2023.
Diagnostic possibilities are (1) severe acute alveolar cardiogenic pulmonary edema, (2) severe pneumonia, or (3) an acute inflammatory pneumonitis.
2. Moderate elevation of the right hemidiaphragm.
3. Moderate calcific atherosclerotic plaque in the coronary arteries.
#Active smoker/COPD likely acute exacerbation
1 pack a day x 48 years
DuoNebs and as needed
#Acute hypokalemia
K2.9
-K rider 40 mEq plus KCl 40 mEq
Follow BMP
-Check magnesium level
EKG: Sinus tach with premature supraventricular complexes 102 bpm, QTc 453 MS
#Alcohol use disorder
Drinks 4 to 6 ounces of rum and coke nightly
MSAs screen per protocol, check GGT
IV thiamine IV folate
Acute hyponatremia in setting of alcohol abuse/hypothyroidism
NA 127
-Fluid restrict 40 ounce
-check TSH with free T4 reflex ,, urine osmole, urine NA, serum Osmo
#Recent fall with left distal radius fracture on 11/30/2024
-Cast in place was due to follow-up with Dr. Easton tomorrow 01/07/2025 however she canceled her appointment due to today's visit
Made patient aware to make appointment within the next 2 weeks to have cast removed
#History recent fall 11/30/2024
#Acute endplate fracture L5
#Hx falls
Severe facet joint arthrosis L4-L5, L5-S1
- Fall precautions
#Hypertension
BP 179/82
-Continue losartan 12.5 mg at bedtime
#Hyperlipidemia
#Migraines hx
#Stress incontinence urine
#Endometriosis status post
#Hypothyroidism
- Continue Synthroid 75 mcg p.o. daily
#Anxiety/depression
- Continue Zoloft 50 mg at bedtime
#GERD no current meds
#Osteoporosis
#Chronic pain syndrome no current meds
DVT prophylaxis
Subcu heparin
Full code per patient states daughter Rachel is her emergency contact however lives in [place]
--- NOTE | 2025-01-06 17:32 | PHANOTE ---
med rec note- patient claims she takes Lipitor 20mg daily but [facility] has not filled it since 2022 and current no [facility] records
[2025-01-06 17:41] LABS: Potassium 2.9 mmol/L (3.5-5.1); Sodium 127 mmol/L (135-145)
--- NOTE | 2025-01-06 17:49 | W.PN.UPDATE ---
Update Note
Progress Note Update
This note serves as an addendum to the H&P by biotechnician LUIS ALBERTO Magdalena Hinton
HPI:
69F Smoker, daily ETOH use HX HTN , dyslipidemia, hypothyroid seen at ER:
- evaluation of acute onset of lower abdominal pain 5 days ago
- an episode of significant bloody diarrhea and dry heaves
- over the past 2 days she has been extremely weak.
- little appetite and lower abdominal pain.
ROS
denies any dysuria or hematuria.
denies any nausea or vomiting.
not on any oral anticoagulation.
denies any history of similar symptoms.
At ER s/p 1.2 L NS at ER
onset of acute resp distress
Reviewed VS:
PE
Gen: not toxic , NAD
HEENT: anicteric
Neck: supple
Lungs: symmetric AE , no wheeze
Cor: RRR S1S2
Abdomen: tender LLQ > RLQ
REAL ESTATE LISTING CONSULTANT: NFND
MS: no edema
Psych: normal mood and affect
Relevant data
Abnormal Lab Results
01/06/25 01/06/25 01/06/25
12:34 13:24 17:17
WBC 15.5 H
RBC 3.19 L
Hgb 11.3 L
Hct 32.4 L
MCV 101.6 H
MCH 35.4 H
Abs Immat Gran (auto) 0.2 H
Absolute Neuts (auto) 12.6 H
Absolute Lymphs (auto) 0.7 L
Absolute Monos (auto) 1.9 H
Immature Gran % 1.5 H
Neutrophils % 80.8 H
Lymphocytes % 4.2 L
Monocytes % 12.5 H
Sodium 126 L 127 L
Potassium 2.9 L
Chloride 93 L
Carbon Dioxide 20 L
Creatinine 0.5 L
Serum Osmolality 263 L
Urine Ketones 3+ A
Urine Urobilinogen 2+ A
Urine RBC 3-6 A
Urine Bacteria (Reflex) Few A
Urine Albumin (Reflex) 2+ A
EKG
CT Pe/abd/pel W
CHEST CTA:
1. SEVERE GROUND-GLASS OPACITY throughout the left upper and lower lobes, right upper lobe, and right middle lobe mixed with increased interstitial markings which is new from 10/28/2023.
Diagnostic possibilities are (1) severe acute alveolar cardiogenic pulmonary edema, (2) severe pneumonia, or (3) an acute inflammatory pneumonitis.
2. Moderate elevation of the right hemidiaphragm.
3. Moderate calcific atherosclerotic plaque in the coronary arteries.
ABDOMEN and PELVIS:
1. SEVERE ACUTE COLITIS in the SIGMOID COLON and distal descending colon. Mild colitis throughout the ascending colon and proximal descending colon. Diagnostic possibilities are (1) an acute infectious colitis, (2) acute inflammatory bowel disease
(ulcerative colitis), or (3) acute ischemic colitis (less likely given the distribution within the colon).
2. Thickened high attenuation endometrium (possibly endometrial hemorrhage or carcinoma).
3. Mild diffuse urinary bladder wall thickening and small urinary bladder diverticula.
4. Acute inferior endplate fracture of L5.
5. Severe facet joint arthrosis at L4/L5 and L5/S1.
Last hospitalist admission: 12/09/22 - 12/10/22
Hyponatremia and hypokalemia due to hydrochlorothiazide
Mechanical fall
ASSESSMENT & PLAN
Clinically she is not in acute pul edema
Not bronchospastic
Dyspneic with exertion with acute Resp distress at ER s/p 1.2 L NS however documented POx 93 on RA
CTC suggest increased interstitial markings DDX: severe acute alveolar cardiogenic pulmonary edema ?
- check Covid, Flu A & B
- pro BNP 726
- NEG TPNI
- IV Lasix 20 x ER then hold off further IV Lasix
- Nebs PRN - no further IV steroids
Acute sigmoid colitis with one episode of bloody dirrhea
LLQ abdominal tenderness
- afebrile, Leucocytosis
- empiric IV Zosyn
Hyponatremic : chronic
- check TSH
- FR 40 Oz
- f/u Na in AM
Hypokalemia
- Correct K with IV KCL 20 jessica and PO 20 KCL
Current smoker
Suspect undiagnosed COPD
- Not bronchospastic
- Nebs PRN
- No further IV Decadron
Daily ETOH use
Recent fall with Lt wrist Fx in the cast
- check GGT
- ETOH WD Protocol - low risk
Poorly control BP
Essential HTN
- c/w Losartan
- add IV Hydralazine PRN
Hyperlipidemia
- on atorvastatin
Hypothyroidism
- on levothyroxine
Chronic Pain Syndrome
- on Tylenol prn
GERD
- on famotidine
Osteoporosis
- on raloxifene
Depression
- on amitriptyline and sertraline
DVT Proph: SCDs
Full Code
IP MS
[2025-01-06 18:29] LABS: Magnesium 1.8 mg/dl (1.6-2.3)
[2025-01-06] MEDS: KCL 40 MEQ PO (18:31)
[2025-01-06 18:34] LABS: COVID-19 Antigen Negative (Negative)
[2025-01-06] MEDS: KCL 270 MEQ IV (18:42)
[2025-01-06] MEDS: THIAMINE INJECTION 200 MG IV (20:49)
[2025-01-06] MEDS: ZOLOFT 50 MG PO (22:57)
[2025-01-06] MEDS: COZAAR 12.5 MG PO (22:57)
[2025-01-06 23:05] LABS: GGTP 82 U/L (12-43); Magnesium 1.4 mg/dl (1.6-2.3)
[2025-01-07] VITALS (7 sets, daily range): BP systolic 95–154; BP diastolic 64–97; PULSE 107; O2SAT 93; BMI 21.3
[2025-01-07 00:20] LABS: INR 1.09; PT 14.4 Sec (11.4-14.6)
[2025-01-07 00:21] LABS: APTT 31.9 Sec (23.4-35.0)
--- NOTE | 2025-01-07 00:35 | PTCARENOTE ---
Patient arrived to [facility] from ED. Patient pulled over from stretcher to bed. Patient AAOx3. Patient oriented to room, bed in lowest position, call carroll within reach. Will continue to monitor.
[2025-01-07] MEDS: ZOSYN 50 IV ×4 (06:12→23:24)
[2025-01-07] MEDS: SYNTHROID 75 MCG PO (06:12)
[2025-01-07 06:51] LABS: Hematocrit 30.8 % (37.0-47.0); Hemoglobin 10.9 g/dL (12.0-16.0); Mean Corp Hgb Conc. 35.4 g/dL (33.0-37.0); Mean Corpuscular Volume 100.0 fL (81.0-99.0); Platelet Count 250 10^3/uL (130-400); Red Cell Dist. Width 12.9 % (11.5-14.5)
[2025-01-07 07:12] LABS: ALT (SGPT) 15 U/L (0-35); AST (SGOT) 37 U/L (14-36); Albumin 3.1 g/dl (3.5-5.0); Alkaline Phosphatase 74 U/L (38-126); Blood Urea Nitrogen 15 mg/dl (7-17); Calcium 7.8 mg/dl (8.4-10.2); Carbon Dioxide 17 mmol/L (22-30); Chloride 103 mmol/L (98-107); Estimated Creatinine Clearance 60 ml/min; Glucose 110 mg/dl (70-99); Potassium 4.0 mmol/L (3.5-5.1); Total Protein 5.6 g/dl (6.3-8.2); eGFR > 60.00
[2025-01-07 07:38] LABS: Nucleated Red Blood Cells % 0 %
[2025-01-07 07:51] LABS: Sodium 133 mmol/L (135-145)
[2025-01-07] MEDS: FOLVITE 1 MG PO (08:06)
[2025-01-07] MEDS: THIAMINE INJECTION 200 MG IV ×2 (08:06→20:14)
--- NOTE | 2025-01-07 08:29 | W.PN.HOSP.TC ---
Today's Communication/Plan
-
see bold
Assessment / Plan
Assessment / Plan
HPI: 69-year-old female with history hypertension, hyperlipidemia who presents to the emergency department for evaluation of lower abdominal pain. Patient states that on Thursday, 5 days ago, she had an episode of significant bloody diarrhea and dry
heaves. She denies any additional episodes of diarrhea or dry heaves however states over the past 2 days she has been extremely weak. She reports very little appetite and lower abdominal pain.
#Acute sigmoid colitis
Rectal bleed 09/02/2008, reports history of colonoscopy 2 years ago diverticulosis somewhere near [facility]
CT abdomen and pelvis shows 'SEVERE ACUTE COLITIS in the SIGMOID COLON and distal descending colon. Mild colitis throughout the ascending colon and proximal descending colon. Diagnostic possibilities are (1) an acute infectious colitis, (2) acute
inflammatory bowel disease (ulcerative colitis), or (3) acute ischemic colitis (less likely given the distribution within the colon).
Continue IV Zosyn, check stool studies if there is diarrhea, trial of full liquid diet, no IV fluids due to suspected pulmonary edema
Check ESR, CRP, consider GI consult
#Intermittent maroon-colored stools
Suspect alcoholic gastritis/gastropathy
Start Protonix 40 mg IV twice daily, trend hemoglobin
#Acute dyspnea/status post activity and IV fluids
#Acute hypoxic respiratory insufficiency
Shortness of breath tachypnea post IV fluids 1250 cc and TSE
Chest CT shows severe groundglass opacity throughout the left upper and lower lobes, right upper lobe, and right middle lobe mixed with increased interstitial markings which is new from 10/28/2023.
Diagnostic possibilities are (1) severe acute alveolar cardiogenic pulmonary edema, (2) severe pneumonia, or (3) an acute inflammatory pneumonitis.
COVID and flu negative
Status post Lasix 20 mg IV in the ED
Give Lasix 20 mg IV again today, change DuoNebs to 4 times daily and as needed
Currently requiring 2 L of oxygen, wean as tolerated
#Cigarette nicotine dependency
1 pack a day x 48 years
Encourage cessation, continue bronchodilators
# Severe hypokalemia
Repleted and resolved
#Hypomagnesemia
Replete by IV, recheck a.m. labs
#Alcohol use disorder
Drinks 4 to 6 ounces of rum and coke nightly
MSAS protocol, thiamine, folic acid
# Hypervolemic hyponatremia
Serum osmolality 263
Improving, continue fluid restriction, check TSH with free T4, a.m. cortisol
#Recent fall with left distal radius fracture on 11/30/2024
-Cast in place was due to follow-up with Dr. Easton 01/07/2025
-Will need to follow-up with Dr. Easton in the office after discharge
#History recent fall 11/30/2024
#Acute endplate fracture L5
# History of falls
Severe facet joint arthrosis L4-L5, L5-S1
Fall precautions, PT/OT when improved
#Hypertension
Continue losartan 12.5 mg at bedtime
#Hypothyroidism
Continue Synthroid 75 mcg p.o. daily
#Anxiety/depression
Continue Zoloft 50 mg at bedtime
DVT prophylaxis�SCDs secondary to reported maroon stools
Full code
Total time spent to see the patient on the floor, examine the patient, review data and lab results, discuss treatment plan with patient, nursing staff around 52 minutes.
Physical Exam
General: Appears to not feel well, no acute distress
HEENT: Normocephalic, Atraumatic, EOMI, MMM
Respiratory: Clear to Auscultation bilaterally
Cardiac: Normal S1/S2, Regular Rate and Rhythm
GI: Soft, Nontender, Nondistended, Normal Bowel Sounds
Extremities: No Clubbing, Cyanosis, or Edema
Neuro: Nonfocal/Grossly Intact
Psych: Calm, Cooperative
Anticipated Discharge: > 48 hours
Subjective/Interval History
-
Date of Service: January 07, 2025
Patient is abdominal pain has resolved. She reports shortness of breath. Denies chest pain. No fever, no vomiting.
Objective Data
-
Labs:
Laboratory Results
01/06/25 01/07/25 01/07/25
22:34 00:01 06:25
WBC 14.1 H
Hgb 10.9 L
Hct 30.8 L
Plt Count 250 D
PT Cancelled 14.4
INR Cancelled 1.09
APTT Cancelled 31.9
Sodium 133 L
Potassium 4.0 D
Chloride 103
Carbon Dioxide 17 L
BUN 15
Creatinine 0.5 L
Glucose 110 H
Calcium 7.8 L
Total Bilirubin 0.8
AST 37 H
ALT 15
Alkaline Phosphatase 74
Vital Signs:
Vital Signs
Temp Pulse Resp BP Pulse Ox
98.4 F 90 17 147/86 96
01/07/25 03:52 01/07/25 03:52 01/07/25 03:52 01/07/25 03:52 01/07/25 03:52
I&O
01/06/25 01/07/25 01/08/25
06:59 06:59 06:59
Intake Total 240 / 240
Output Total 950 / 950
Balance -710 / -710
[2025-01-07] MEDS: MAGNESIUM SULFATE 50 IV (10:59)
[2025-01-07] MEDS: LASIX 20 MG IV (11:08)
[2025-01-07] MEDS: NSS (PRESERVATIVE FREE) 10 ML IV ×2 (11:08→20:11)
[2025-01-07] MEDS: PROTONIX IV 40 MG IV ×2 (11:09→20:11)
--- NOTE | 2025-01-07 12:14 | CM ---
MEt with patient who came to in ambulance from her PCP office. SHe reports she stopped smoking and drinking alcohol 4 weeks ago. She lives in family home with her brother who owns home. He is selling it and she plans to move to [place] in
2months to be near her dgtr. She plans to buy a home there. She has been independent, drives.
She does not use any DME but has shower grab bar. 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 She does not want to go to SNF rehab. She has [facility] in 2022 and would use them again.
PCP Javan Mederos
Pharmacy: [facility].
PLAN: watch for home care needs or SNF.
[2025-01-07] MEDS: DUONEB INH (13:17)
[2025-01-07] MEDS: DUONEB 3 ML INH ×2 (15:40→19:38)
[2025-01-07] MEDS: SODIUM BICARBONATE 1300 MG PO ×2 (17:11→23:15)
[2025-01-07] MEDS: PULMICORT 0.5 MG INH (19:38)
[2025-01-07] MEDS: LIDOCAINE 4% PATCH 1 PATCH TOPICAL (20:10)
[2025-01-07] MEDS: COZAAR 12.5 MG PO (23:16)
[2025-01-07] MEDS: ZOLOFT 50 MG PO (23:16)
[2025-01-08] VITALS (19 sets, daily range): BP systolic 48–150; BP diastolic 13–84; BMI 21.1
[2025-01-08] MEDS: ZOSYN 50 IV ×3 (05:54→21:43)
[2025-01-08] MEDS: SYNTHROID 75 MCG PO (05:55)
[2025-01-08] MEDS: DUONEB 3 ML INH ×2 (07:27→11:15)
[2025-01-08] MEDS: PULMICORT 0.5 MG INH (07:27)
[2025-01-08 07:30] LABS: Hematocrit 26.7 % (37.0-47.0); Hemoglobin 9.8 g/dL (12.0-16.0); Mean Corp Hgb Conc. 36.7 g/dL (33.0-37.0); Mean Corpuscular Volume 97.8 fL (81.0-99.0); Platelet Count 287 10^3/uL (130-400); Red Cell Dist. Width 12.8 % (11.5-14.5)
[2025-01-08 07:50] LABS: Blood Urea Nitrogen 9 mg/dl (7-17); Calcium 7.5 mg/dl (8.4-10.2); Carbon Dioxide 26 mmol/L (22-30); Chloride 99 mmol/L (98-107); Estimated Creatinine Clearance 60 ml/min; Glucose 122 mg/dl (70-99); Magnesium 1.7 mg/dl (1.6-2.3); Potassium 2.9 mmol/L (3.5-5.1); Sodium 131 mmol/L (135-145); eGFR > 60.00
[2025-01-08] MEDS: LIDOCAINE 4% PATCH 1 PATCH TOPICAL (08:01)
[2025-01-08] MEDS: NSS (PRESERVATIVE FREE) 10 ML IV ×2 (08:02→22:04)
[2025-01-08] MEDS: SODIUM BICARBONATE 1300 MG PO (08:02)
[2025-01-08] MEDS: PROTONIX IV 40 MG IV ×2 (08:02→22:05)
[2025-01-08 08:03] LABS: C-Reactive Protein 167.20 mg/L (0.0-10.00)
[2025-01-08] MEDS: FOLVITE 1 MG PO (08:03)
[2025-01-08 08:20] LABS: Cortisol, Random 27.1 ug/dl
[2025-01-08] MEDS: THIAMINE INJECTION 200 MG IV ×2 (09:03→22:05)
[2025-01-08] MEDS: KCL 40 MEQ PO (10:15)
[2025-01-08] MEDS: KCL 260 MEQ IV (10:15)
[2025-01-08 13:13] LABS: Glucose - Point of Care 175 mg/dl (70-99)
--- NOTE | 2025-01-08 13:43 | PTCARENOTE ---
1250 went to pt room to answer her call light. PT AAOx3. Pt reporting nonspecific complaints of generalize body aches. Will reach out to provider and continue to monitor pt. Personal items and call light within reach. Pt given IS and instructed
on how to use to help aide in good gas exchange and open lung muscle.
[2025-01-08] MEDS: SUBLIMAZE 50 MCG IV ×4 (13:45→22:35)
[2025-01-08] MEDS: DIPRIVAN 100 IV ×2 (13:45→23:49)
[2025-01-08] MEDS: ASPIRIN 300 MG RECTAL (13:45)
--- NOTE | 2025-01-08 13:48 | PTCARENOTE ---
1256 Spoke with provider regarding pt nonspecific reports of generalized body aches. Provider stated to medicate pt with PRN pain meds and her electrolyte will be repleted.
--- NOTE | 2025-01-08 13:50 | PTCARENOTE ---
1305 Went to get pain medication and another nurse called out for help as pt monitor was going off. Upon entering room pt found lying across the bed with blue discoloration. No palpable pulse code 9 called. See code report for details.
[2025-01-08 13:56] LABS: B.E. -17.4 mmol/L; O2 Saturation % 99.9 % (94-98); PCO2 39 mmHg (32-35); PO2 163 mmHg (83-108)
[2025-01-08] MEDS: HEPARIN 4000 UNITS IV (14:00)
--- NOTE | 2025-01-08 14:01 | CON.CAR ---
Consultation
Consultation Request
Date/Time Consultation Requested: 01/08/2025
Date/Time Consultation Performed: 01/08/2025
Requesting Provider: Dr. Beth
Performing Provider: Dr. Lantigua
Reason for Consultation: Code 9. VF arrest acute TN
Medical History
-
History of Present Illness:
69-year-old female with history hypertension, hyperlipidemia also with EtOH history (with apparent last drink a week ago )who presents to the emergency department for evaluation of lower abdominal pain. Patient states that on Thursday, 5 days ago,
she had an episode of significant bloody diarrhea and dry heaves. She denies any additional episodes of diarrhea or dry heaves however states over the past 2 days she has been extremely weak. She reports very little appetite and lower abdominal
pain.
69-year-old woman also with complaints of weakness and abdominal pain. Patient reportedly had an episode of melena yesterday but has had smith stool today by report. Abdominal CT. 01/06/2025 showed severe acute colitis in the sigmoid colon and
distal descending colon mild colitis throughout the ascending and colon proximal descending colon. There was also severe groundglass opacity throughout the left upper and lower lobes differential included cardiogenic pulmonary edema pneumonia or
include inflammatory pneumonitis.
.
Today was called to a code 9. When I arrived patient was pulseless. Initial rhythm was VF. Patient received amp of epi and epinephrine while pads were being placed. When VF confirmed patient when that shocked to bradycardia with heart rates in
the 30s. Palpable pulse obtained which was becoming weaker with heart rate in the 20s patient given second epi with increase in the heart rate initially in the 80s but then patient went into rapid narrow complex tachycardia ranging as high as the
180s. Patient was intubated during the code by anesthesiology ECG showed inferior ST elevation. Patient rapidly transferred to ICU and repeat ECG with heart rate 68 bpm confirms inferior and anterolateral ST elevation consistent with acute TN.
Issues were reviewed with interventional cardiology Dr.K. Kory and intensive. Beth. Also reviewed issues with patient's daughter by phone. Gastroenterology also aware
.
Patient critically ill with acute TN and has hypotension requiring pressors. Explained to the patient's daughter the severity of her mother's illness with cardiac arrest and acute TN. This by itself is a high risk situation which is a threat to
life but her mother has even higher risk due to her underlying medical issues including ongoing colitis with evidence of GI bleeding. I also explained that patient would require increased anticoagulants and antiplatelet therapy for treatment of
acute TN which may further precipitate GI bleeding.. Complex situation with challenging management issues. Management further reviewed. Weighing all risks and benefits plan is to proceed with emergent cardiac catheterization.
Past Medical History
Past Medical History: Other (As noted)
Past Surgical History: Other
Allergies / Home Medications
Allergy/AdvReac Type Severity Reaction Status Date / Time
alendronate sodium (From Allergy Unknown Verified 01/06/25 18:24
Fosamax)
clindamycin Allergy Rash Verified 01/06/25 18:24
trimethobenzamide HCl (From Allergy felt like Verified 11/30/24 16:04
Tigan) she was
climbing
the wall
�Medication �Instructions �Recorded �Confirmed �Type
sertraline 50 mg tablet 50 mg PO HS Depression 12/09/22 01/06/25 History
levothyroxine 75 mcg tablet 75 mcg PO DAILY 01/06/25 01/06/25 History
(Synthroid)
losartan 25 mg tablet 12.5 mg PO HS 01/06/25 01/06/25 History
Review of Systems
-
Unable to obtain full review of systems at this time due to: Patient Intubation
Physical Exam
Vital Signs
Temp Pulse Resp BP Pulse Ox
98.8 F 103 22 150/80 99
01/08/25 12:17 01/08/25 12:17 01/08/25 12:17 01/08/25 12:17 01/08/25 13:42
Lab Results
Troponin I < 0.012 ng/ml 01/06/25 15:20
Ido-M-Mxuwaoksqrg Pept 882 pg/ml 01/08/25 06:17
Physical Exam
General: Other (Intubated currently sedated but was moving post arrest and trying to get out of bed and remove ET tube)
HEENT: Anicteric
Cardiac: Regular Rhythm and Other (Coarse vented breath sounds)
GI: Soft
Musculoskeletal: Other (No edema)
Impression / Plan
-
Code 9/cardiac arrest. Appears to be for primary VF arrest secondary to acute TN as noted above. Patient returned to sinus rhythm after 1 shock. Did not receive amiodarone due to some concern regarding bradycardia.
- Plan for cardiac catheterization
.
Acute IMI.
- Acute ST elevation TN.
- Acute threat to life
- Patient had higher risk with evidence of acute heart failure/cardiogenic shock requiring pressors and presence of acute colitis with previous issues with GI bleeding. Challenging medical issues. Considering patient's critical condition
significant likelihood patient will not survive without additional intervention. I have reviewed the complex of the patient's case with other providers including interventional cardiology, lace machine operator, hospitalist and GI. Also discussed issues
with patient's daughter including the severity of illness risk of procedure and complexity of issues above. Patient daughter has consented for the patient to go to the [facility] also has consented to receive blood products if needed.
-Patient has received aspirin rectally and has received IV heparin
- Plan for emergent cardiac catheterization. Dr. Cabrera
.
Severe acute colitis. Part of patient's initial presentation has had some bloody stools including some melena yesterday but reportedly has had smith stool without blood as her most recent BM. Issues have been reviewed with hospitalist and GI
- Will need to monitor closely
[2025-01-08 14:02] LABS: Hematocrit 30.7 % (37.0-47.0); Hemoglobin 9.8 g/dL (12.0-16.0); Mean Corp Hgb Conc. 31.9 g/dL (33.0-37.0); Mean Corpuscular Volume 108.5 fL (81.0-99.0); Platelet Count 302 10^3/uL (130-400); Red Cell Dist. Width 13.9 % (11.5-14.5)
--- NOTE | 2025-01-08 14:06 | CON.INTV ---
Consultation
Consultation Request
Date/Time Consultation Requested: 01/08/2025
Date/Time Consultation Performed: 01/08/2025
Medical History
-
Chief Complaint: Cardiac arrest
History of Present Illness:
Patient is a 69-year-old female who was emergently evaluated after cardiac arrest. Reportedly patient was admitted to the hospital on 01/06 with chief diagnosis of acute colitis in the sigmoid colon with some hematochezia which has since improved.
Patient was admitted on the floor and today developed acute onset of unresponsiveness. A code 9 was immediately called and patient was found to be pulseless not breathing and cyanotic. I happened to be on the floor and I examined the patient with
then seconds of code 9 being called. CPR was initiated right away. Cardiology service also arrived at bedside. Initial rhythm was noted to be ventricular fibrillation patient received epi and defibrillation followed by achievement of ROSC.
Patient was emergently intubated on the floor and was subsequently admitted to the ICU. [employer] consultation was requested for further input.
Past Medical History: Reports Other
Additional Past Medical History:
Distal radius fracture 11/30/2024
endplate fracture L5 11/30/2024
rectal bleed 09/02/2008
[place] 2 years ago diverticulosis [place] [facility]
Alcohol use disorder,
nicotine abuse 1 pack a day x 48 years/COPD
hypertension
hyperlipidemia
migraines
stress incontinence urine
endometriosis status post
hypothyroidism
anxiety/depression
falls
GERD
osteoporosis
chronic pain syndrome
Past Surgical History: Reports Other
Additional Past Surgical History:
Section
colonoscopy 2 years ago diverticulosis [place] [facility]
Social History
Tobacco: Smoker (1 pack a day x 48 years)
Alcohol: Daily (4 to 6 ounces of rum and coke daily)
Personal: Single
Living: Alone
Employment: Retired
Family History
Family History: Not pertinent
Allergies / Home Medications
Allergies reflects when Allergies were last updated in [facility].
Allergies / Home Medications
Allergies
Allergy/AdvReac Type Severity Reaction Status Date / Time
alendronate sodium (From Allergy Unknown Verified 01/06/25 18:24
Fosamax)
clindamycin Allergy Rash Verified 01/06/25 18:24
trimethobenzamide HCl (From Allergy felt like Verified 11/30/24 16:04
Tigan) she was
climbing
the wall
Home Medications
�Medication �Instructions �Recorded �Confirmed �Last Taken �Type
sertraline 50 mg tablet 50 mg PO HS Depression 12/09/22 01/06/25 01/05/25 History
levothyroxine 75 mcg tablet 75 mcg PO DAILY 01/06/25 01/06/25 01/06/25 History
(Synthroid)
losartan 25 mg tablet 12.5 mg PO HS 01/06/25 01/06/25 01/05/25 History
Review of Systems
-
Unable to Obtain full review of systems at this time due to: Patient Intubation
Vitals / Labs / Diagnostic Testing
Vital Signs
Temp Pulse Resp BP Pulse Ox
98.8 F 103 22 150/80 99
01/08/25 12:17 01/08/25 12:17 01/08/25 12:17 01/08/25 12:17 01/08/25 13:42
Lab Data
01/08/25 13:42
Laboratory Results
01/08/25
13:42
O2 Delivery Level Not Reportable
Microbiology
01/08/25 08:22 Feces/Stool Stool Leukocytes - Final
01/06/25 17:59 Nasal Swab Influenza Types A & B (RAGHU) - Final
Negative for Influenza A & B, NAAT
Negative results must be combined with clinical observations
and patient history.
Nucleic Acid Amplification test (NAAT)performed on the
[employer] platform.
Diagnostic Testing:
Physical Exam
-
HEENT: Other (pale appearing)
Cardiovascular: S1/S2
Respiratory: Rales and Other (Diffuse bilateral Rales consistent with pulmonary edema)
GI: Soft and Non Distended
Neurology: Other (Unresponsive)
Skin: Warm
General: Comfortable
Assessment
-
#1. Cardiac Arrest, initial rhythm V Fib. STEMI
- s/p EPi x 2, 1 Defibrillation @ 360, followed by ROSC. Intubated on the floor during CPR
- Patient moving and thrashing around post ROCS, target normothermia
- Concern for STEMI, cardiology service on case. IV Heparin, ASA [place] stat, forestry farm laborer alert, plan for emergent Angiography, Emblem Fuser Tender at bedside
#2. V Fib (2nd episode in ICU)
- s/p CPR, Defibrillation X1. Amiodarone 300 mg IV stat, Calcium IV stat, MgSO4 2 gm IVPB stat
- ROSC achieved, patient emergently wheeled to laborer hoisting
#3. Shock, likely cardiogenic shock.
- Levophed, upto @ 16, add Vasopressin
- pH 7.08, Sodium Bicarbonate push IV stat
- Serial ABG, titrate pressors to keep MAP > 65
- Continue broad spectrum antibiotics, f/u cultures
- No IVF bolus in view of severe Pulmonary edema
- Likely will need Impella or IABP
- Depending on pressor need, might need stress dose steroids
#3. Acute hypoxic respiratory failure with severe Pulmonary edema
- Ground-glass patchy cities noted on the admission CT scan suggestive of pulmonary edema. Significant worsening likely related to due to cardiogenic shock
- 350/30/100%/5 later increased to 8 due to hypoxia, high Respiratory rate in view of metabolic acidosis
- ABG 7.08/39/163
- Serial ABGs and adjust accordingly
- Sedation with propofol and fentanyl
- Echocardiogram for further evaluation
- Chest x-ray in a.m.
Other medical diagnoses:
- Acute sigmoid colitis, continue IV Zosyn for now, GI service on case, no further hematochezia noted. At risk of lower GI bleed once anticoagulated
- History of alcoholism suspected gastritis. Currently on Protonix 40 mg IV twice daily continue. Also on IV thiamine.
- Long standing history of smoking, patient likely has underlying COPD or emphysema. No wheezing on exam currently. As needed albuterol
- Hypertension, hypothyroidism
- Failure to thrive. Patient weighs 47.4 kg, appears cachectic and malnourished.
Critical Care time 92 mins -- The patient is admitted for acute critical illness for the treatment of vital organ failure and/or prevention of further life-threatening conditions. Total care includes time spent in review of history, physical exam,
medications, hemodynamic/ventilator parameters, laboratory data, imaging and discussion with house staff, pharmacy, respiratory therapy, manager city, and nursing.
Data:
CHEST CTA: 12/2024
1. SEVERE GROUND-GLASS OPACITY throughout the left upper and lower lobes, right upper lobe, and right middle lobe mixed with increased interstitial markings which is new from 10/28/2023. Diagnostic possibilities are (1) severe acute alveolar
cardiogenic pulmonary edema, (2) severe pneumonia, or (3) an acute inflammatory pneumonitis.
2. Moderate elevation of the right hemidiaphragm.
3. Moderate calcific atherosclerotic plaque in the coronary arteries.
ABDOMEN and PELVIS: 12/2024
1. SEVERE ACUTE COLITIS in the SIGMOID COLON and distal descending colon. Mild colitis throughout the ascending colon and proximal descending colon. Diagnostic possibilities are (1) an acute infectious colitis, (2) acute inflammatory bowel disease
(ulcerative colitis), or (3) acute ischemic colitis (less likely given the distribution within the colon).
2. Thickened high attenuation endometrium (possibly endometrial hemorrhage or carcinoma).
3. Mild diffuse urinary bladder wall thickening and small urinary bladder diverticula.
4. Acute inferior endplate fracture of L5.
5. Severe facet joint arthrosis at L4/L5 and L5/S1.
CXR 12/2024: Severe Pulmonary edema
ECHO 04/2022: Normal biventricular size and systolic function without regional wall motion abnormality.
Mild concentric left ventricular hypertrophy.
No significant valvular disease.
No prior study available for comparison.
[2025-01-08 14:07] LABS: APTT 34.4 Sec (23.4-35.0); INR 1.45; PT 17.9 Sec (11.4-14.6)
[2025-01-08 14:08] LABS: HCO3 11.6 mmol/L (21-28)
[2025-01-08] MEDS: LEVOPHED 250 IV (14:11)
[2025-01-08] MEDS: PITRESSIN 100 IV (14:12)
--- NOTE | 2025-01-08 14:13 | W.PN.HOSP.TC ---
Today's Communication/Plan
-
Transfer to ICU
Assessment / Plan
Assessment / Plan
HPI: 69-year-old female with history hypertension, hyperlipidemia who presents to the emergency department for evaluation of lower abdominal pain. Patient states that on Thursday, 5 days ago, she had an episode of significant bloody diarrhea and dry
heaves. She denies any additional episodes of diarrhea or dry heaves however states over the past 2 days she has been extremely weak. She reports very little appetite and lower abdominal pain.
#V-fib arrest on 01/08
Code 9 called, patient received CPR, shock, epinephrine, was intubated
ROSC achieved
Appreciate cardiology and printed circuit layout taper assistance
Transfer to the ICU, start Levophed drip
#ST elevation myocardial infarction leading to V-fib arrest
Aspirin rectally, start IV heparin
Plan for emergent cardiac catheterization, trend troponins, trend EKG
#Acute sigmoid colitis
Rectal bleed 09/02/2008, reports history of colonoscopy 2 years ago diverticulosis [facility] [place] [facility]
CT abdomen and pelvis shows 'SEVERE ACUTE COLITIS in the SIGMOID COLON and distal descending colon. Mild colitis throughout the ascending colon and proximal descending colon. Diagnostic possibilities are (1) an acute infectious colitis, (2) acute
inflammatory bowel disease (ulcerative colitis), or (3) acute ischemic colitis (less likely given the distribution within the colon).
Continue IV Zosyn, f/u stool studies, consult GI
CRP 167
#Intermittent maroon-colored stools
#Acute blood loss anemia
Suspect alcoholic gastritis/gastropathy
Continue Protonix 40 mg IV twice daily, consult GI, trend hemoglobin
#Acute dyspnea/status post activity and IV fluids
#Acute hypoxic respiratory insufficiency
Shortness of breath tachypnea post IV fluids 1250 cc and TSE
Chest CT shows severe groundglass opacity throughout the left upper and lower lobes, right upper lobe, and right middle lobe mixed with increased interstitial markings which is new from 10/28/2023.
Diagnostic possibilities are (1) severe acute alveolar cardiogenic pulmonary edema, (2) severe pneumonia, or (3) an acute inflammatory pneumonitis.
COVID and flu negative
Status post Lasix 20 mg IV in the ED
Status post IV Lasix, continue DuoNebs to 4 times daily and as needed
#Cigarette nicotine dependency
1 pack a day x 48 years
Encourage cessation, continue bronchodilators
# Severe hypokalemia
Replete by IV and p.o.
#Hypomagnesemia
Repleted and resolved
#Alcohol use disorder
Drinks 4 to 6 ounces of rum and coke nightly
MSAS protocol, thiamine, folic acid
# Hypervolemic hyponatremia
Serum osmolality 263
Improving, TSH and a.m. cortisol normal
#Recent fall with left distal radius fracture on 11/30/2024
-Cast in place was due to follow-up with Dr. Easton 01/07/2025
-Will need to follow-up with Dr. Easton in the office after discharge
#History recent fall 11/30/2024
#Acute endplate fracture L5
# History of falls
Severe facet joint arthrosis L4-L5, L5-S1
Fall precautions, PT/OT when improved
#Hypertension
Hold losartan 12.5 mg at bedtime
#Hypothyroidism
Continue Synthroid 75 mcg p.o. daily when able
#Anxiety/depression
Continue Zoloft 50 mg at bedtime when able
DVT prophylaxis�SCDs secondary to reported maroon stools
Full code
Total time spent to see the patient on the floor, examine the patient, review data and lab results, discuss treatment plan with patient, nursing staff around 55 minutes.
Updated daughter on phone 01/07, 01/08
Daughter lives in [place], and plans to fly up to see her mother
Physical Exam
General: Nonresponsive
HEENT: Normocephalic, Atraumatic, EOMI, MMM
Respiratory: Agonal Breathing
Cardiac: Pulseless
GI: Soft
Anticipated Discharge: > 48 hours
Subjective/Interval History
-
Date of Service: January 08, 2025
Patient seen and examined twice. She continues to feel short of breath, complains of diffuse pain. In the morning, she denies abdominal pain, denies chest pain. No fever, no vomiting.
Objective Data
-
Labs:
Laboratory Results
01/08/25
06:17
WBC 9.9
Hgb 9.8 L
Hct 26.7 L
Plt Count 287
Sodium 131 L
Potassium 2.9 L D
Chloride 99
Carbon Dioxide 26
BUN 9
Creatinine 0.5 L
Glucose 122 H
Calcium 7.5 L
Vital Signs:
Vital Signs
Temp Pulse Resp BP Pulse Ox
98 F 106 21 113/67 88
01/08/25 08:12 01/08/25 08:12 01/08/25 08:12 01/08/25 08:12 01/08/25 08:12
I&O
01/07/25 01/08/25 01/09/25
06:59 06:59 06:59
Intake Total 240 / 240 1890 / 1890
Output Total 950 / 950 1330 / 1330
Balance -710 / -710 560 / 560
[2025-01-08] MEDS: SODIUM BICARBONATE 50 MEQ IV ×2 (14:14→21:59)
--- NOTE | 2025-01-08 14:18 | W.PN.CD ---
Today's Communication / Plan
-
see consult
Impression / Plan
-
Code 9/cardiac arrest. Appears to be for primary VF arrest secondary to acute OH as noted above. Patient returned to sinus rhythm after 1 shock. Did not receive amiodarone due to some concern regarding bradycardia.
- Plan for cardiac catheterization
.
Acute IMI.
- Acute ST elevation OH.
- Acute threat to life
- Patient had higher risk with evidence of acute heart failure/cardiogenic shock requiring pressors and presence of acute colitis with previous issues with GI bleeding. Challenging medical issues. Considering patient's critical condition
significant likelihood patient will not survive without additional intervention. I have reviewed the complex of the patient's case with other providers including interventional cardiology, life skills consultant, hospitalist and GI. Also discussed issues
with patient's daughter including the severity of illness risk of procedure and complexity of issues above. Patient daughter has consented for the patient to go to the V[facility] Ul[facility] Techn[facility] also has consented to receive blood products if needed.
-Patient has received aspirin rectally and has received IV heparin
- Plan for emergent cardiac catheterization. Dr. Cabrera
.
Severe acute colitis. Part of patient's initial presentation has had some bloody stools including some melena yesterday but reportedly has had smith stool without blood as her most recent BM. Issues have been reviewed with hospitalist and GI
- Will need to monitor closely
Physical Exam
Vital Signs/Labs
Vital Signs
Temp Pulse Resp BP Pulse Ox
98.8 F 103 22 150/80 99
01/08/25 12:17 01/08/25 12:17 01/08/25 12:17 01/08/25 12:17 01/08/25 13:42
01/07/25 01/08/25 01/09/25
06:59 06:59 06:59
Actual Weight 47.826 kg 47.4 kg
01/08/25 13:42
PT 17.9 Sec (11.4-14.6) H 01/08/25 13:42
INR 1.45 01/08/25 13:42
APTT 34.4 Sec (23.4-35.0) 01/08/25 13:42
Magnesium 1.7 mg/dl (1.6-2.3) 01/08/25 06:17
Free T4 0.93 ng/dl (0.78-2.19) 01/08/25 06:17
01/06/25 01/06/25 01/08/25
14:33 15:20 06:17
Cwv-Z-Dngjcalykyv Pept Cancelled [id number]
LAB Results
01/06/25 01/06/25
14:33 15:20
Troponin I Cancelled < 0.012
Data Reviewed
-
Date of Service: January 08, 2025
[2025-01-08 14:20] LABS: AST (SGOT) 89 U/L (14-36); Albumin 2.7 g/dl (3.5-5.0); Alkaline Phosphatase 80 U/L (38-126); Blood Urea Nitrogen 8 mg/dl (7-17); Calcium 7.9 mg/dl (8.4-10.2); Carbon Dioxide 21 mmol/L (22-30); Chloride 103 mmol/L (98-107); Estimated Creatinine Clearance 60 ml/min; Glucose 226 mg/dl (70-99); Magnesium 2.1 mg/dl (1.6-2.3); Potassium 4.0 mmol/L (3.5-5.1); Sodium 135 mmol/L (135-145); Total Protein 5.0 g/dl (6.3-8.2); eGFR > 60.00
--- NOTE | 2025-01-08 14:28 | PTCARENOTE ---
1330 PT transferred to ICU.
[2025-01-08 14:35] LABS: ALT (SGPT) 36 U/L (0-35)
[2025-01-08 14:36] LABS: Troponin I 0.385 ng/ml
--- NOTE | 2025-01-08 14:40 | W.PN.ANESINT ---
Anesthesia Intubation Note
- Intubation Note
Intubation Note:
Diagnosis: Cardiac arrest
Blade: 4
Tube Size: 8.0 [place]
Depth: 21
Side Taped: R
Drugs Used: None
Grade View: I
EtCO2 Present: Yes
Atraumatic: YES
Attempts: 1
Insertion Start and Stop Time: 13:08 - 13:15
SaO2 Pre: N/A
SaO2 Post: 90
Glidescope Used: YES
Other Airway Adjustments:
Pre-Oxygenated: YES
Portable Chest X-Ray: YES
RSI: NO
Suctioned: YES
Bilateral Breath Sounds Confirmed: YES
Vent Settings:
Settings per ___Attending Physician
[2025-01-08 14:50] LABS: ACT-LR - POC 248 Seconds (116-155)
--- NOTE | 2025-01-08 14:54 | PTCARENOTE ---
Pt received at code 9 on floor. See code sheet. Intubated then transferred to ICU. Pt thrashing in bed during transfer. Started on Propofol. Fentanyl bolus given. EKG done. Labs sent. Levophed started for hypotension. NGT placed. CXR and
abdominal xray completed for ETT and NGT placement. Aspirin and Heparin given per order. Vasopressin started. At 1415, rhythm changed to Vfib. CPR initiated immediately. See code sheet. Achieved ROSC and transferred to supervisor laboratory animal facility.
[2025-01-08 14:56] LABS: Absolute Neutrophils -Man Diff 7.2 10^3/uL (1.4-6.5); Normal RBC Morphology Yes; Platelets Checked Yes; Total Cells Counted 100
[2025-01-08 15:09] LABS: ACT-LR - POC 371 Seconds (116-155)
[2025-01-08 15:30] LABS: ACT-LR - POC 327 Seconds (116-155)
--- NOTE | 2025-01-08 15:39 | CON.GI ---
Consultation
-
Date/Time Consultation Requested: 01/08/25
Date/Time Consultation Performed: 01/08/25
Requesting Provider: Dr Art Denis
Performing Provider: Dr Marcia Denis
Reason for Consultation: colitis
Medical History
Chief Complaint / HPI
Chief Complaint: rectal bleeding
History of Present Illness:
Octavia is a 69yo W with h/o ETOH and tobacco use and HTN who presents for abd pain for 5 days with one bloody diarrhea. She is intubated and sedated post recent cardiac arrest. Most of history is per chart review. At the time of transfer to ICU
RN noted smear of smith brown stool upon turning. Patient for acute ST elevation RI will be taken to cardiac cath today. She will be started on IV heparin and [place] ASA. Oral gastric tube placed post intubation and lavage was clear
Past Medical History
Past Medical History: Other (HTN Hyperlipidemia ETOH use GERD Hypothyroidism anxiety depression chronic pain, rectal bleeding 2008)
Past Surgical History: Other (Csection, colonoscopy 2 yrs ago)
Social History
Tobacco: Smoker
Alcohol: Daily
Drug: None
Living: Alone
Employment: Retired
Family History
Family History: Unable to Obtain
Allergies / Home Medications
Allergy/AdvReac Type Severity Reaction Status Date / Time
alendronate sodium (From Allergy Unknown Verified 01/06/25 18:24
Fosamax)
clindamycin Allergy Rash Verified 01/06/25 18:24
trimethobenzamide HCl (From Allergy felt like Verified 11/30/24 16:04
Tigan) she was
climbing
the wall
�Medication �Instructions �Recorded
sertraline 50 mg tablet 50 mg PO HS Depression 12/09/22
levothyroxine 75 mcg tablet 75 mcg PO DAILY 01/06/25
(Synthroid)
losartan 25 mg tablet 12.5 mg PO HS 01/06/25
Review of Systems
-
Unable to obtain full review of systems at this time due to: Patient Intubation
Vital Signs
Temp Pulse Resp BP Pulse Ox
98.8 F 96 25 88/75 94
01/08/25 12:17 01/08/25 14:30 01/08/25 14:30 01/08/25 14:30 01/08/25 14:30
Physical Exam
Exam
GEN: obese pale appearing
HEENT: anicteric ETT in place
GI: soft, non-distended, obese not tender to palpation
EXT: warm, well perfused, 2+ edema bilaterally
NEURO: sedated non-focal
Results
WBC 12.0 10^3/uL (4.8-10.8) H 01/08/25 13:42
WBC Cancelled 01/08/25 13:42
Hgb 9.8 g/dL (12.0-16.0) L 01/08/25 13:42
Hgb Cancelled 01/08/25 13:42
Hct 30.7 % (37.0-47.0) L 01/08/25 13:42
Hct Cancelled 01/08/25 13:42
MCV 108.5 fL (81.0-99.0) H D 01/08/25 13:42
MCV Cancelled 01/08/25 13:42
Plt Count 302 10^3/uL (130-400) 01/08/25 13:42
Plt Count Cancelled 01/08/25 13:42
Absolute Neuts (auto) 11.1 10^3/uL (1.4-6.5) H 01/07/25 06:25
PT 17.9 Sec (11.4-14.6) H 01/08/25 13:42
INR 1.45 01/08/25 13:42
APTT 34.4 Sec (23.4-35.0) 01/08/25 13:42
Sodium 135 mmol/L (135-145) 01/08/25 13:42
Sodium Cancelled 01/08/25 13:42
Potassium 4.0 mmol/L (3.5-5.1) D 01/08/25 13:42
Potassium Cancelled 01/08/25 13:42
Chloride 103 mmol/L (98-107) 01/08/25 13:42
Chloride Cancelled 01/08/25 13:42
Carbon Dioxide 21 mmol/L (22-30) L 01/08/25 13:42
Carbon Dioxide Cancelled 01/08/25 13:42
BUN 8 mg/dl (7-17) 01/08/25 13:42
BUN Cancelled 01/08/25 13:42
Creatinine 0.6 mg/dL (0.6-1.0) 01/08/25 13:42
Creatinine Cancelled 01/08/25 13:42
Calcium 7.9 mg/dl (8.4-10.2) L 01/08/25 13:42
Calcium Cancelled 01/08/25 13:42
Total Bilirubin 0.5 mg/dl (0.2-1.3) 01/08/25 13:42
AST 89 U/L (14-36) H 01/08/25 13:42
ALT 36 U/L (0-35) H 01/08/25 13:42
Alkaline Phosphatase 80 U/L (38-126) 01/08/25 13:42
Diagnostic Image Results:
CTCAP severe GOO throughout lungs, DJD, severe colitis in sigmoid and DC throughout AC and prox DC
Prior GI Procedures:
EGD: none at
Colonoscopy: 2022 Dr Sandy OROURKETx s/p APC, small polyps, sigmoid tics, IH, random bx neg for colitis. recall 3[address] Spencer ischemic colitis
Assessment / Plan
-
Octavia is a 69yo W with h/o tobacco/ETOH use, HTN and ischemic colitis 2008 who presents with bloody diarrhea and abd pain. 01/08 found to have cardiac arrest and STEMI requiring intubation and urgent LHC.
Impression
- Cardiac arrest with STEMI (01/08)
- Bloody diarrhea and colitis on CT
Suspect ischemic colitis she had this as well in 2008 (seen on Cscope)
Less likely infectious thus far stool studies negative
Cscope in 2022 without signs of UC
- Ground glass opacities in lungs
- HTN
- Tobacco use
- ETOH use
- Leukocytosis
- GERD
- Hyperlipidemia
- Hypothyroidism
Recommendation
- C/w abx to prevent gut bacterial translocation
- Blood cultures x2 ordered
- Optimize cardiac and BP as you already are doing
- Stool studies neg rest pending
- Monitor stool output
- NPO for now
- Serial H/H
- Ok for anticoagulation given acute STEMI. Suspect revascularization will also help with her presumptive ischemic colitis. She is too ill to pursue GI procedures at this juncture.
Will follow with you.
Data Reviewed
-
CT Scan: Report Reviewed by me
Old Records: Reviewed
-
-
Thank you for consultation and allowing me to participate in the patient's care. Please call the electronic assembler group leader GI physician during the after hours with any questions or concerns.
[2025-01-08 15:55] LABS: ACT-LR - POC 269 Seconds (116-155)
[2025-01-08] MEDS: DUONEB INH ×2 (16:01→20:03)
[2025-01-08 16:22] LABS: ACT-LR - POC 324 Seconds (116-155)
[2025-01-08 16:56] LABS: ACT-LR - POC 322 Seconds (116-155)
[2025-01-08 17:18] LABS: ACT-LR - POC 303 Seconds (116-155)
--- NOTE | 2025-01-08 17:22 | W.PN.UPDATE ---
Update Note
Progress Note Update
CARDIAC SURGERY ATTENDING:
I was called by my cardiology colleagues to evaluate Mrs. Octavia Love. Briefly, She is a 69-year-old woman who initially presented to our institution on 01/06/2025 with complaints of lower abdominal pain. Five days prior to presentation she
reportedly had a significant episode of bloody diarrhea and dry heaves and has since been extremely weak. She has very little appetite and ongoing lower abdominal pain. Her past medical history is significant for daily alcohol use disorder,
nicotine abuse/COPD, hypertension, hyperlipidemia, migraines, stress urinary incontinence, hypothyroidism, anxiety/depression, GERD, prior GI/rectal bleeding, osteoporosis, endometriosis, and chronic pain syndrome.
She was diagnosed with severe acute colitis in her sigmoid colon and distal descending colon with milder colitis affecting her ascending, transverse, and proximal descending colon. Her CT chest also revealed severe ground-glass opacities
bilaterally. Her right hemidiaphragm was moderately elevated. She had moderate calcific atherosclerotic plaque in her coronaries. She was started on antibiotic therapy and IV Protonix. She was diuresed and DuoNebs 4 times daily as needed were
instituted. Her admission hemoglobin was 11.3 and has since declined to 9.8.
Earlier today the patient became acutely unresponsive. A code 9 was called. The patient was found to be pulseless and cyanotic. ACLS was initiated. The patient's initial rhythm was noted be ventricular fibrillation which was responsive to
epinephrine and defibrillation with achievement of ROSC. The patient was intubated. After ROSC, she had an episode of bradycardia (heart rate into the 20s) and received additional epinephrine. EKG demonstrated inferior ST elevation. The
patient's daughter was informed of this acute event and arrangements were made to take the patient for emergent cardiac catheterization.
Cardiac catheterization demonstrated left dominant coronary system. Her LAD had a mid to distal SLIDE FASTENER CHAIN ASSEMBLER, her right coronary was quite diminutive, and her circumflex had an area of extensive [id number] calcifications with significant narrowing with
preserved MARION-3 flow distally. My interventional cardiology colleague attempted serial ballooning of this calcified lesion unfortunately without significant modification but with preservation of MARION-3 flow. An IABP was placed. I arrived in the
Tools Administrator, and we had a multidisciplinary discussion. The patient's ST elevation had normalized with improved perfusion pressure and her pressor requirements have decreased.
From a surgical perspective, she has an obtuse marginal target that appears amenable to bypass, however, the terminal circumflex does not appear to have any bypassable target. There is also some disease in the proximal obtuse marginal that may
limit backfilling into the terminal circumflex. Her LAD is a SLIDE FASTENER CHAIN ASSEMBLER, and I do not appreciate significant collateralization. It is possible that this coronary would not be surgically bypassable; intraoperative assessment would be required. At
present, acute surgical intervention on this patient would be extremely high risk given her current pulmonary status, GIB, and potential cirrhosis (abdominal ultrasound from 11/2023 revealed a otherwise normal liver with the exception of a 2 cm cyst
in the left lobe which was stable from 2021). In addition, although she is currently moving all extremities and her code was succinct, we do not currently know her complete mental status.
I agree the plan at present should be supportive with heparin and cangrelor infusions and intra-aortic balloon counterpulsation. Pharmacologic therapy should be instituted as needed to maintain MAPs of 65-70. Ideally, she will be reassessed for
potential repeat PCI based intervention in 24 to 48 hours. If this is not possible, high risk surgical intervention could be secondarily considered.
I attempted to speak with the patient's daughter, Mrs. Rachel Love; [phone], but was unfortunately unable to reach her. It is possible that she is currently traveling from [place].
Will follow this patient's course closely.
Ney Javier MD
[phone]
--- NOTE | 2025-01-08 17:30 | CONSULT.CT ---
Consultation
-
Date/Time Consultation Requested: 01/08/25
Date/Time Consultation Performed: 01/08/25
Requesting Provider: Sarita Cabrera MD
Performing Provider: Demar BARRIGA for Ney Javier MD
Reason for Consultation: eval for CABG
Patient History
Physicians
Family Physician: Jess Mar
Outpatient Solid Tire Tuber Machine Operator: N/A
Inpatient Solid Tire Tuber Machine Operator: Sarita Cabrera
History of Present Illness
Called for CABG evaluation s/p witness VF arrest on hospital unit. 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
Briefly, this 69 year old female was admitted to [facility] on 01/06/25 with left lower quadrant abdominal pain and one episode bloody diarrhea 01/01/25, found to have acute sigmoid colitis. She was treated with IV Zosyn, Protonix and IV fluids. She
developed acute dyspnea after the fluid resuscitation and was treated with IV Lasix, Duonebs, and supplemental oxygen. Patient was then admitted to the floor and today developed VT/VF arrest from acute inferior STEMI. Intubated, defibrillated to
sinus bradycardia. Underwent urgent cardiac catheterization which reported occluded mid LAD and severe LCx stenosis. Area stented, and Levophed plus IABP therapy initiated due to hypotension.
Past Medical History
Past Medical History: COPD (mild per CT scan 2023), HTN, Hypercholesterolemia, Hypothyroidism, Psychiatric (depression; ETOH /tobacco abuse) and Other (endometriosis w/cauterization; chronic pain; distal radial fracture (11/30/24); stress
incontinence; ischemic colitis (2021): cervical spine fracture; right femoral artery stenosis)
Past Surgical History
Past Surgical History: and Orthopedic
Family History
Mother: N/A
Father: N/A
Social History
Alcohol: Daily (4-6oz Rum)
Drug: None
Tobacco: Smoker (current 48pk/yr hx)
Personal: Single
Living: Alone
Employment: Retired
Allergies
Allergy/AdvReac Type Severity Reaction Status Date / Time
alendronate sodium (From Allergy Unknown Verified 01/06/25 18:24
Fosamax)
clindamycin Allergy Rash Verified 01/06/25 18:24
trimethobenzamide HCl (From Allergy felt like Verified 11/30/24 16:04
Tigan) she was
climbing
the wall
Home Medications
�Medication �Instructions �Recorded �Confirmed �Type
sertraline 50 mg tablet 50 mg PO HS Depression 12/09/22 01/06/25 History
levothyroxine 75 mcg tablet 75 mcg PO DAILY 01/06/25 01/06/25 History
(Synthroid)
losartan 25 mg tablet 12.5 mg PO HS 01/06/25 01/06/25 History
Review of Systems
-
Unable to obtain full review of systems at this time due to: Patient Intubation
History Source: Other (chart)
Physical Exam
Vital Signs
Temp 98.8 F 01/08/25 12:17
Temp route: Oral 01/08/25 12:17
Pulse 96 01/08/25 14:30
Rhythm: Sinus tachycardia 01/08/25 10:26
With- PVC's Monomorphic 01/06/25 21:00
Resp Rate 25 01/08/25 14:30
Blood pressure 88/75 01/08/25 14:30
Blood pressure extremity used: Right upper arm 01/08/25 12:17
Position: Lying 01/08/25 12:17
MAP (cuff-Carlota Monitor) 82 01/08/25 14:30
SaO2 94 01/08/25 14:30
Nasal Cannula flow liters per minute 4 01/08/25 12:17
Oxygen Mode of Delivery Room air 01/07/25 12:43
Pulse Ox at Rest 93 01/07/25 11:07
Actual Weight 47.4 kg 01/08/25 06:00
Body Mass Index (BMI) 21.1 01/08/25 06:00
Supine- Blood Pressure 143/97 01/07/25 11:07
Supine- Pulse 107 01/07/25 11:07
Sitting- Blood Pressure 95/69 01/07/25 11:07
etC02 value 21 01/08/25 14:11
Heart rate after activity 95 01/07/25 11:07
Blood pressure after activity 154/83 01/07/25 11:07
Oxygen Saturation with Activity 89 01/07/25 11:07
Labs
01/08/25 13:42
01/08/25 13:42
PT 17.9 Sec (11.4-14.6) H 01/08/25 13:42
APTT 34.4 Sec (23.4-35.0) 01/08/25 13:42
Troponin I 0.385 ng/ml H* 01/08/25 13:42
Troponin I Cancelled 01/08/25 13:42
Zcg-S-Prdlvnxxndb Pept 882 pg/ml 01/08/25 06:17
Arterial Blood Gases
pH 7.08 (7.35-7.45) L* 01/08/25 13:42
pCO2 39 mmHg (32-35) H 01/08/25 13:42
pO2 163 mmHg (83-108) H 01/08/25 13:42
HCO3 11.6 mmol/L (21-28) L* 01/08/25 13:42
Base Excess -17.4 mmol/L 01/08/25 13:42
ABG O2 Sat (Measured) 99.9 % (94-98) H 01/08/25 13:42
O2 Delivery Level Not Reportable 01/08/25 13:42
Urinalysis
Urine Color Yellow 01/06/25 13:24
Urine Clarity Clear (Clear) 01/06/25 13:24
Urine pH 6.0 (5.0-9.0) 01/06/25 13:24
Ur Specific [place] 1.010 (<1.030) 01/06/25 13:24
Urine Ketones 3+ (Negative) A 01/06/25 13:24
Ur Occult Blood Reflex Negative (Negative) 01/06/25 13:24
Urine Bilirubin Negative (Negative) 01/06/25 13:24
Leukocyte Esterase Rfl Negative (Negative) 01/06/25 13:24
Urine RBC 3-6 /HPF (0-2) A 01/06/25 13:24
Urine WBC (Reflex) 3-5 /HPF (0-5) 01/06/25 13:24
Ur Squamous Epith Cells 6-10 /LPF (Few) 01/06/25 13:24
Urine Bacteria (Reflex) Few (Negative) A 01/06/25 13:24
Urine Glucose Negative (Negative) 01/06/25 13:24
Urine Albumin (Reflex) 2+ (Neg - Trace) A 01/06/25 13:24
Exam
General: Intubated and Other (sedated s/p VF arrest)
HEENT: Other (left pupil +4, R pupil +2)
Neck: Trachea Midline and Other (no carotid bruit)
Respiratory: Clear and Other (#8OT @23>AC 350/100%/30/5)
Cardiac: S1/S2 and Regular Rhythm
GI: Soft, Non Tender, Non Distended and Other (cental mottling over abdomen)
Rectal: Deferred by Provider
Skin: Warm and Dry
Neuro: Sedated
Extremities: Pulses and Other (feet cool, R femoral IABP with 1:1 counterpulsation with ECG trigger. No hematoma/bleeding at insertion site; Left femoral [place] locked @ 65cm)
Lymph: No Lymphadenopathy
Psych: Other (intubated, sedated)
Assessment / Plan
-
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
- case d/w Dr Javier
- intubated with diffuse alveolar edema
- pressors: Levophed
- Sedation/Anxiolysis: Propofol/Fentanyl
- IABP 1:1
- Anticoagulation:IV Heparin and Cangrelor
- GI prophylaxis: Protonix IV
- UNEQUAL PUPILS: Dr Cabrera notified. Stroke alert and CT head, CTA H/N, perfusion completed and sent/interpreted b yDr. Dougherty @ [facility]. No thrombolytic intervention warranted.
Data Reviewed
-
EKG: Report Reviewed by me and Discussed with Physician
Chief Sustainability Officer: Report Reviewed by me and Discussed with Physician
Labs: Labs Reviewed by me and Discussed with Physician
Old Records: Reviewed
--- NOTE | 2025-01-08 18:07 | ITS.CL.CATH ---
Returned Goods Repairer - Catheterization
Cardiac Catheterization
Procedure Report:
LEFT AND RIGHT HEART CATHETERIZATION
Date of Procedure: January 08, 2025
Referring: Kaushik Lantigua MD
PROCEDURES:
1. Left heart catheterization, coronary angiogram.
2. Moderate sedation.
3. Plain old balloon angioplasty of the heavily calcified 99% mid left circumflex stenosis (MARION 3 flow, Type C lesion) with a 2.5 x 15 mm NC balloon at 28 niko with severe residual waist.
4. Failure to deliver IVL shockwave balloon.
5. Intra-aortic balloon pump placement.
6. Right heart catheterization.
INDICATION: Recurrent VF arrest, inferior ST elevation VA
ACCESS: Right radial artery, 6Fr. sheath, under US guidance.
HEMODYNAMICS : (mmHg)
RA (m) : 15
RV (s/d,m) : 36/15, 17
PA (s/d, m) : 37/24, 31
PCWP (m) : 23
PA saturation: 35.4% on 100% FiO2 and 12 of PEEP
AO saturation: 98.7% on 100% FiO2 and 12 of PEEP
RA saturation: 34.0% on 100% FiO2 and 12 of PEEP
Cardiac Output : 2.23 L/min by Chadwick calculation
Cardiac Index : 1.60 L/min/m-2 by Chadwick calculation
Systemic vascular resistance: 2295 dsc^(-5)
Pulmonary vascular resistance: 3.59 luna unit
AO (s/d) : 166/95
LVEDP : 35 (prior to IV Lasix and IABP placement)
No significant gradient across the aortic valve to suggest aortic stenosis.
POST IABP PLACEMENT:
PA saturation: 40.9% on 100% FiO2 and 12 of PEEP
AO saturation: 99.0% on 100% FiO2 and 12 of PEEP
Cardiac Output : 2.5 L/min by Chadwick calculation
Cardiac Index : 1.8 L/min/m-2 by Chadwick calculation
Cardiac Output : 1.6 L/min by thermodilution
Cardiac Index : 1.3 L/min/m-2 by thermodilution
CORONARY FINDINGS
Dominance: Left
Left Main Trunk (LMT): Large caliber vessel that gives rise to the LAD and LCx branches and terminal left main has 20 to 30% stenosis.
Left Anterior Descending Artery (LAD): Large caliber vessel that has diffuse mid vessel disease and then is a chronic total occlusion with no robust collaterals.
Left Circumflex Artery (LCx): Large dominant vessel that is severely calcified and gives of 1 major large caliber obtuse marginal branch and several very small left posterolateral branches and a small caliber left posterior descending artery. Mid
left circumflex has a 99% heavily calcified stenosis just proximal to the large obtuse marginal takeoff. The OM1 has ostial calcified 80% stenosis.
Right Coronary Artery (RCA): The right coronary artery is a small caliber nondominant vessel with 40 to 50% stenosis in the midportion
ATTEMPTED CORONARY INTERVENTION: Given the culprit was thought to be the mid left circumflex heavily calcified 99% stenosis decision was made to attempt percutaneous intervention to this vessel. The patient was given additional heparin to maintain
a therapeutic ACT throughout the case. She had received 300 mg of aspirin per rectum in the ICU. The left coronary artery was selectively engaged using a 6 [place] EBU 3.5 guide catheter. We attempted a 0.014' run-through coronary wire and with
significant difficulty eventually were able to navigate past the heavily calcified lesion into the larger OM branch. We then tried to predilate the heavily calcified severe 99% stenosis (type C lesion, MARION III flow) using a 2.5 semicompliant
balloon at 22 niko with a significant waist. At this point we then tried to come back with a 2.5 noncompliant balloon and dilated this at 28 niko with a significant residual waist. We initially attempted to pass a second wire to serve as a carmencita
wire however given the narrow channel across the severely calcified lesion we could not advance this. We attempted bringing a 2.5 x 12 mm shockwave balloon which could not be delivered through the severe lesion. We then attempted to deliver a
carmencita wire again using a twin pass microcatheter however we could not advance the twinpass microcatheter past the distal third of the lesion with the carmencita wire exiting the sideport into the midportion and the 20 past was taken out. The second wire
had significant restriction in mobility concerning for possible dissection or perforation and thus the system was withdrawn eventually. The case was discussed with interventional partners and CT surgery and we felt that the risk of attempting any
further maneuvers at this point when there was MARION-3 flow into the distal vessel contrast shutting down the only viable artery the patient has given her LAD is a chronic total occlusion. We then proceeded to support her through cardiogenic shock
with right heart catheterization and intra-aortic balloon pump and allow her time to recover given there was MARION-3 flow down the left circumflex. Unsuccessful PCI with residual 90% stenosis and a heavily calcified lesion with MARION-3 flow into the
distal vessel.
IABP PLACEMENT: The right common femoral arterial access was upsized to 8 [place] sheath. A 40 cc intra-aortic balloon pump was then advanced through the sheath over a long J-tipped 0.025' guide wire into the thoracic aorta with the radio opaque tip
marker of the IABP placed at the level of the pebbles using fluoroscopic guidance. The IABP was then flushed and connected to its console. There was excellent hemodynamic augmentation noted at 1-1 support and there was no ongoing ST elevations
noted anymore with significant decrease in pressor support. There were no intraprocedural complications. Of note, 40 cc IABP was utilized given we did not have a 34 cc IABP available.
SEDATION: 120 minutes of procedural sedation was utilized. IV Midazolam and IV Fentanyl were administered. An independent medical investigator was present to assist with and help manage the patient's level of consciousness and physiologic status.
RADIATION SUMMARY: Fluoro Time (min): 24.6, Dose (mGy): 871.8, DAP (Gy.cm2) : 67
Closure Device: All the sheaths were sutured in place. She has a intra-aortic balloon pump going through the right common femoral arterial 8 [place] sheath. There is a Amonate-Bre catheter going through a 7-06/23 left common femoral venous access
sheath. Left common femoral artery has a 6 [place] sheath sutured in place for arterial access.
CONCLUSIONS
1. Significantly elevated right and left-sided filling pressures with reduced cardiac output and elevated systemic vascular resistance consistent with acute cardiogenic shock (SCAI stage E; DIRECTOR OF PROGRAMMING is less than 0.6)
2. Severe multivessel coronary artery disease with LAD STARCH FACTORY LABORER, 99% calcified mid left circumflex stenosis and 80% ostial OM stenosis.
3. Plain old balloon angioplasty of the heavily calcified 99% mid left circumflex stenosis with a 2.5 x 15 mm NC balloon at 28 niko with severe residual waist.
4. Unsuccessful PCI with residual 99% stenosis and a heavily calcified lesion with MARION-3 flow into the distal vessel.
5. Successful placement of a 40 cc intra-aortic balloon pump via right common femoral artery.
RECOMMENDATIONS
1. Continue with daily 81 mg aspirin. She received 300 mg per rectum earlier today.
2. IV cangrelor along with IV unfractionated heparin drip.
3. Closely monitor lab work including lactates, CMP and mixed venous sat and low threshold to escalate mechanical circulatory support as warranted for ongoing cardiogenic shock concerns.
4. Closely monitor EKGs.
5. IV amiodarone and will consider low-dose dobutamine while closely monitoring electrolytes and aiming for K above 4 and mag about 2.
6. Stat echocardiogram to assess biventricular function, rule out significant valvular abnormalities and rule out left ventricular thrombus.
7. Discussions were also had regarding all of the above from a heart team standpoint with Dr. Ney Javier who is on-call for CT surgery. Depending on clinical course, further intervention would likely require atherectomy support.
Extensive discussion was had with patient's daughter, Mary, in regards to all of the above and overall guarded prognosis (DIRECTOR OF PROGRAMMING < 0.6, Stage E cardiogenic shock with multiple VF arrest and multivessel coronary artery disease). We will plan on
sequential assessment and consider discussions with [facility] once above data is obtained in regards to escalation of care and support.
Sarita H. Cabrera, MD, FAC, [facility]
[2025-01-08] MEDS: PULMICORT INH (20:03)
[2025-01-08] MEDS: SUBLIMAZE 100 IV (20:05)
--- NOTE | 2025-01-08 20:23 | PTCARENOTE ---
Patient received from [facility] at 1825 - report given by Zo RUTHERFORD; Sedated and intubated; Pupils unequal and unresponsive upon arrival to CVICU - stroke alert called and patient taken to CT scan; VSS; NSR on monitor; IABP present in right femoral access
- frequency 1:1; +1 DP, left brachial, and right radial pulses present; ETT 8.0 at 21 cm at lip; Ventilator settings A/C; 16 [place] Thurman catheter inserted by Mera RUTHERFORD at bedside - draining clear, yellow urine; NGT connected to low intermittent wall
suction - no drainage at this time; Surgical sites intact; Left arm cast present; Left femoral arterial A-line present, [place]-linda present in left femoral venous access - all lines leveled and zeroed; PIV intact; Levo and propofol infusing; Report
given to Marie RUTHERFORD; See nursing documentation for further information
--- NOTE | 2025-01-08 20:30 | PTCARENOTE ---
pt received from previous rn. Pt taken to CT at change of shift. Sedated and intubated. Pupils unequal w/ sluggish reaction. VSS. NSR per tele monitor. HR 80s. +pulses, ETT 8.0 at 21 cm at lip; Ventilator settings A/C 100%/30/350/8. Pox 100% lungs
diminished. Thurman draining clear yellow urine. NGT connected to low intermittent wall suction - no drainage at this time. Surgical sites intact; Left arm cast present; IABP present in right femoral access - frequency 1:1, Left femoral arterial
A-line present, [place]-linda present in left femoral venous access - all lines leveled and zeroed; PIV intact.
gtts:
Levophed
Dobutamine.
Heparin
Cangrelor
--- NOTE | 2025-01-08 20:34 | CON.NEURO ---
Neuro Assessment/Plan
Assessment
head CT imgs rev'd, no bleed
CTA head/neck imgs rev'd, no LVO
CTP imgs rev'd, core 0, penumbra 0
no concerns for all the anticoagulation indicated
neuro exam appears promising in this situation.
discussed with Dr. Cabrera
Consultation
Order
Date of Consultation: 01/08/25
Requesting Provider: Sarita Cabrera
Reason for Consult: blown pupil
Subjective/Objective
Subjective Data
Date of Service: January 08, 2025
Emergent ICU consult
69 year old woman admitted for GI symptoms, in hospital cardiac arrest. had cardiac cath and after procedures noted to have blown left pupil, stroke alert called for concern of stroke/bleed, got CT/CTA/perfusion. now patient in Cardiac ICU getting
IA balloon pump. Needs emergent blood thinners IV Heparin and Cangrelor, question if they are safe from neuro perspective
Objective Data
Vital Signs
Temp Pulse Resp BP Pulse Ox
37.1 C 82 21 88/75 99
01/08/25 12:17 01/08/25 20:15 01/08/25 20:15 01/08/25 14:30 01/08/25 19:55
PT 17.9 Sec (11.4-14.6) H 01/08/25 13:42
INR 1.45 01/08/25 13:42
APTT 34.4 Sec (23.4-35.0) 01/08/25 13:42
Sodium Cancelled 01/08/25 18:14
Potassium Cancelled 01/08/25 18:14
BUN Cancelled 01/08/25 18:14
Glucose Cancelled 01/08/25 18:14
Calcium Cancelled 01/08/25 18:14
Phosphorus 5.1 mg/dl (2.5-4.5) H 01/08/25 13:42
Cou-S-Vnszyukjxas Pept 882 pg/ml 01/08/25 06:17
Ur Buprenorphine Negative (Negative) 01/07/25 00:22
Patient Allergies
alendronate sodium (From Fosamax) Allergy (Verified 01/06/25 18:24)
Unknown
clindamycin Allergy (Verified 01/06/25 18:24)
Rash
trimethobenzamide HCl (From Tigan) Allergy (Verified 11/30/24 16:04)
felt like she was climbing the wall
Physical Exam
-
propofol 50 mcg/kg/min
right pupil 1mm, left pupil 4 mm, both sluggishly reactive
vestibulo ocular reflex negative
+cough
localizes and withdraws to deep noxious stim x all extremities
Medications
-
Active Medications
Generic Name Dose Route Start Last Admin
Trade Name Freq PRN Reason Stop Dose Admin
Acetaminophen 650 mg 01/06/25 20:03
Acetaminophen 325 Mg Tablet PO 02/03/25 20:02
Q4HPRN PRN
mild pain/HERNANDEZ/temp> 100.4F
Acetaminophen 650 mg 01/08/25 18:17
Acetaminophen 325 Mg Tablet PO 02/05/25 18:16
Q4HPRN PRN
mild pain
Albuterol/Ipratropium 3 ml 01/07/25 12:00 01/08/25 20:03
Ipratropium 0.5/Albuterol 3 Mg (3 Ml Ampul) INH Not Given
R QID YULISSA
Protocol
Albuterol/Ipratropium 3 ml 01/07/25 13:21
Ipratropium 0.5/Albuterol 3 Mg (3 Ml Ampul) INH
R Q4HPRN PRN
SOB/wheezing
Protocol
Budesonide 0.5 mg 01/07/25 20:00 01/08/25 20:03
Budesonide (Pulmicort Respules) 0.5 Mg/2 Ml INH Not Given
R BID YULISSA
Protocol
Fentanyl Citrate 50 mcg 01/08/25 18:11 01/08/25 20:05
Fentanyl (50 Mcg/Ml) 100 Mcg/2 Ml Ampul IV 01/22/25 18:10 50 mcg
[id number] PRN Administration
see protocol
Protocol
Folic Acid 1 mg/ Sodium 50.2 mls @ 200.8 mls/hr 01/06/25 20:03
Chloride IV 02/03/25 20:02
DAILYPRN PRN
if NPO
Piperacillin Sod/Tazobactam Sod 3.375 gram in 50 mls @ 100 mls/hr 01/07/25 00:00 01/08/25 12:15
Zosyn IV 50 mls
Q6H YULISSA Administration
Norepinephrine Bitartrate 4 mg in 250 mls @ 0 mls/hr 01/08/25 13:30 01/08/25 14:11
Levophed IV 250 mls
PER PROTOCOL YULISSA Administration
Protocol
Per Protocol
Vasopressin 20 units in 100 mls @ 0 mls/hr 01/08/25 14:15 01/08/25 14:12
Pitressin IV 100 mls
On Hold: 01/08/25 18:28 PER PROTOCOL YULISSA Administration
Protocol
Per Protocol
Fentanyl Citrate 1,000 mcg in 100 mls @ 0 mls/hr 01/08/25 18:15 01/08/25 20:05
Sublimaze IV 100 mls
PER PROTOCOL YULISSA Administration
Protocol
Per Protocol
Propofol 1,000,000 mcg in 100 mls @ 0 mls/hr 01/08/25 18:15 01/08/25 13:45
Diprivan IV 100 mls
PER PROTOCOL YULISSA Administration
Protocol
Per Protocol
Cangrelor 50,000 mcg/ Sodium 255 mls @ 10.878 mls/hr 01/08/25 18:30
Chloride IV
.[id number] YULISSA
0.75 MCG/KG/MIN
Heparin Sodium 25,000 units in 250 mls @ 0 mls/hr 01/08/25 18:30
Heparin 27380 Units/250 Ml IV
PER PROTOCOL YULISSA
Protocol
Per Protocol
Dobutamine HCl/Dextrose 500 mg in 250 mls @ 0 mls/hr 01/08/25 20:30
Dobutrex 500 Mg IV
PER PROTOCOL YULISSA
Protocol
Per Protocol
Levothyroxine Sodium 75 mcg 01/07/25 06:00 01/08/25 05:55
Levothyroxine 75 Mcg Tablet PO 02/04/25 05:59 75 mcg
DAILY @ 0600 YULISSA Administration
Lidocaine 1 patch 01/07/25 19:35 01/08/25 08:01
Lidocaine 4% Topical Patch TOPICAL 02/04/25 19:34 1 patch
DAILY YULISSA Administration
Protocol
Lorazepam 1 mg 01/06/25 20:03
Lorazepam 1 Mg Tablet PO 02/03/25 20:02
Q2HPRN PRN
MSAS 5-7
Lorazepam 1 mg 01/06/25 20:09
Lorazepam 1 Mg Tablet PO 02/03/25 20:08
Q1HPRN PRN
MSAS 8-11
Lorazepam 2 mg 01/06/25 20:03
Lorazepam 2 Mg/Ml Vial IV 02/03/25 20:02
Q1HPRN PRN
MSAS > 11
Nicotine 21 mg 01/07/25 14:00 01/08/25 08:03
Nicotine 21 Mg Patch TRANSDERM 02/04/25 13:59 Not Given
DAILY YULISSA
Oxycodone HCl 5 mg 01/07/25 08:33
Oxycodone 5 Mg Regular Release Tablet PO 01/21/25 08:32
Q4HPRN PRN
moderate pain
Oxycodone HCl 10 mg 01/07/25 08:33
Oxycodone 10 Mg Regular Release Tablet PO 01/21/25 08:32
Q4HPRN PRN
severe pain
Pantoprazole Sodium 40 mg 01/07/25 11:00 01/08/25 08:02
Pantoprazole Sodium 40 Mg/10 Ml Vial IV 02/04/25 10:59 40 mg
BID YULISSA Administration
Polyethylene Glycol 17 grams 01/09/25 08:00
Polyethylene Glycol Powder 17 Grams Packet TUBE 02/06/25 07:59
DAILY YULISSA
Sodium Chloride 0 ml 01/06/25 20:03
Sodium Chloride 0.9% (Preservative Free) 10 Ml Vial IV 02/03/25 20:02
PRN PRN
To dilute IV Ativan
Protocol
Sodium Chloride 0 flush 01/06/25 21:00
Sodium Chloride 0.9% (Flush) Syringe IV 02/03/25 20:59
PER PROTOCOL YULISSA
Sodium Chloride 10 ml 01/07/25 11:00 01/08/25 08:02
Sodium Chloride 0.9% (Preservative Free) 10 Ml Vial IV 02/04/25 10:59 10 ml
BID YULISSA Administration
Thiamine HCl 200 mg 01/06/25 20:03 01/08/25 09:03
Thiamine (100 Mg/Ml) 2 Ml Vial IV 01/09/25 08:01 200 mg
Q12 YULISSA Administration
Home Medications
�Medication �Instructions �Recorded
sertraline 50 mg tablet 50 mg PO HS Depression 12/09/22
levothyroxine 75 mcg tablet 75 mcg PO DAILY 01/06/25
(Synthroid)
losartan 25 mg tablet 12.5 mg PO HS 01/06/25
--- NOTE | 2025-01-08 20:38 | CARDSERVDEF ---
Echocardiogram with Definity completed after protocol screening completed. Allergies verified.
Patent IV site: R wrist
IV site flushed with 0.9% NaCl pre and post administration.
Diluted bolus method utilized to enhance visualization of ventricular randle.
Total volume given: _2___ mL
Patient tolerated all procedures well without complications.
[2025-01-08] MEDS: DOBUTREX 500 MG 250 IV (20:52)
[2025-01-08] MEDS: KENGREAL 255 MCG IV (20:56)
[2025-01-08] MEDS: HEPARIN 25000 UNITS/250 ML IV (21:00)
[2025-01-08 21:08] LABS: Hematocrit 23.3 % (37.0-47.0); Hemoglobin 8.1 g/dL (12.0-16.0); Mean Corp Hgb Conc. 34.8 g/dL (33.0-37.0); Mean Corpuscular Volume 100.4 fL (81.0-99.0); Nucleated Red Blood Cells % 0 %; Platelet Count 275 10^3/uL (130-400); Red Cell Dist. Width 13.4 % (11.5-14.5)
[2025-01-08 21:10] LABS: APTT > 200 Sec (23.4-35.0)
[2025-01-08 21:12] LABS: B.E. -2.6 mmol/L; HCO3 22.5 mmol/L (21-28); O2 Saturation % 100.0 % (94-98); PCO2 39 mmHg (32-35); PO2 187 mmHg (83-108)
[2025-01-08 21:24] LABS: AST (SGOT) 201 U/L (14-36); Albumin 2.5 g/dl (3.5-5.0); Alkaline Phosphatase 92 U/L (38-126); Blood Urea Nitrogen 12 mg/dl (7-17); Calcium 8.1 mg/dl (8.4-10.2); Carbon Dioxide 21 mmol/L (22-30); Chloride 102 mmol/L (98-107); Estimated Creatinine Clearance 60 ml/min; Glucose 195 mg/dl (70-99); Magnesium 1.7 mg/dl (1.6-2.3); Potassium 3.1 mmol/L (3.5-5.1); Sodium 133 mmol/L (135-145); Total Protein 4.9 g/dl (6.3-8.2); Triglycerides 118 mg/dl (10-149); eGFR > 60.00
[2025-01-08 21:35] LABS: ALT (SGPT) 42 U/L (0-35); LDH 888 U/L (120-246)
--- NOTE | 2025-01-08 21:50 | W.PN.UPDATE ---
Update Note
Progress Note Update
Interventional Cardiology Update note
Below is a summary of multiple evaluations post heat cath through the evening.
The patient was noted to have anisocoria. We called a stroke alert and obtained a stat CT head that did not show any acute bleed, and not overt infarct noted. Patient is currently sedated and full neurological examination not possible but after
arrest was moving all four limbs. Stat neuro consult is being obtained.�
In terms of shock, patient has had improvement in cardiac index from 1.2 to 1.6. Wesley is 1.6 but INKER continues to remain low at 0.38 which suggests high risk of poor prognosis. Lactate is 6.5 from 7.0. We are about to initiate dobutamine with
weaning of norepinephrine to provide more inotropy and reduce afterload with IABP in place.
Stat bedside echocardiogram showed moderately reduced RV function with LVEF of 40-45% without LV thrombus. We would plan for an uptitration of dobutamine to support RV and LV instead of upgrading to pLVAD/impella currently hussein with Hgb down to 8.1.
Hbg also noted to be dropping (8.1 from 9.8) and we will transfuse 2 units to improve oxygen carrying capacity.�
Discussed all of the above with daughter, Mary who was updated. She unfortunately has extremely poor prognosis in the setting of multi-organ failure post arrest.�
# SCAI Stage E shock�
# Acute hypoxemic and hypercarbic respiratory failure�
# Acute MA�
# Multivessel coronary artery disease�
# Anemia with underlying colitis
# Post-cardiac arrest�
# Anisocoria�
# Alcohol abuse�
Plan:�
Replete K+ > 4 and Mg+2 > 2�
Ongoing diuresis after repletion of lytes�
Wean levophed in setting of SVR 2100 while on dobutamine 2.5mcg.
Repeat lactate in one hour with repeat RHC numbers and uptitrate dobutamine to 5 mcg/kg/min�if tolerating.
pRBC transfusion and [id number] labs
Discussed plan in detail with CT surgery PA overnight and also maintenance supervisor mechanical. Updated Dr. Kaushik Lantigua.
Sarita Cabrera MD, [facility], [facility]
Total critical care time: 124mins
[2025-01-08] MEDS: VANCOCIN 200 IV (22:29)
[2025-01-08] MEDS: KCL 100 IV (22:30)
[2025-01-08] MEDS: MAGNESIUM SULFATE 50 IV (22:30)
[2025-01-08] MEDS: LASIX 40 MG IV (23:50)
[2025-01-09] VITALS (26 sets, daily range): BP systolic 97–169; BP diastolic 51–129; BMI 21.7
--- NOTE | 2025-01-09 00:15 | PTCARENOTE ---
spontaneous awake trial completed. pt able to follow commands. pt able to move all extremities.
[2025-01-09 00:20] LABS: B.E. 3.0 mmol/L; HCO3 27.0 mmol/L (21-28); O2 Saturation % 99.6 % (94-98); PCO2 38 mmHg (32-35); PO2 114 mmHg (83-108); Potassium 4.2 mMOL/L (3.5-5.1)
[2025-01-09] MEDS: SOLU-CORTEF 50 MG IV ×4 (01:32→17:56)
[2025-01-09] MEDS: ZOSYN IV (01:41)
--- NOTE | 2025-01-09 02:00 | PTCARENOTE ---
2 units of PRBC transfused w/o incident
[2025-01-09] MEDS: KCL 50 IV (02:14)
[2025-01-09] MEDS: CALCIUM GLUCONATE 130 MG IV (02:14)
[2025-01-09] MEDS: ZOSYN 50 IV ×4 (04:28→22:04)
[2025-01-09 05:23] LABS: B.E. 3.4 mmol/L; HCO3 26.7 mmol/L (21-28); O2 Saturation % 99.1 % (94-98); PCO2 35 mmHg (32-35); PO2 88 mmHg (83-108)
[2025-01-09 05:38] LABS: B.E. - POC -4.1 mmol/L; Blood Urea Nitrogen - POC 9 mg/dl (3-120); Chloride - POC 103 mmol/L (96-111); Creatinine - POC 0.46 mg/dl (0.3-1.0); Glucose - POC 256 mg/dl (70-99); HCO3 - POC 21 mmol/L (21-28); Hematocrit - POC 39 % PCV (37-47); Hemodilution- POC No; Hemoglobin Calculated - POC 13.3; Ionized Calcium - POC 1.20 mmol/L (1.15-1.33); Lactate - POC 5.99 mmol/L (0.36-0.75); O2 Saturation %Calculated-POC 99.0 % (94-98); PCO2 - POC 38 mmHg (35-48); PO2 - POC 135 mmHg (83-108); Potassium - POC 3.1 mmol/L (3.5-5.1); Sodium - POC 134 mmol/L (136-145); Specimen Type - POC Arterial; pH - POC 7.35 (7.35-7.45)
[2025-01-09 05:39] LABS: Hematocrit 31.5 % (37.0-47.0); Hemoglobin 11.5 g/dL (12.0-16.0); Mean Corp Hgb Conc. 36.5 g/dL (33.0-37.0); Mean Corpuscular Volume 88.2 fL (81.0-99.0); Platelet Count 184 10^3/uL (130-400); Red Cell Dist. Width 17.2 % (11.5-14.5)
[2025-01-09 05:53] LABS: APTT 59.6 Sec (23.4-35.0)
[2025-01-09 05:59] LABS: Troponin I 16.400 ng/ml
[2025-01-09] MEDS: SYNTHROID 75 MCG PO (06:19)
[2025-01-09 06:30] LABS: ALT (SGPT) 31 U/L (0-35); AST (SGOT) 174 U/L (14-36); Albumin 2.2 g/dl (3.5-5.0); Alkaline Phosphatase 90 U/L (38-126); Blood Urea Nitrogen 12 mg/dl (7-17); Calcium 8.8 mg/dl (8.4-10.2); Carbon Dioxide 29 mmol/L (22-30); Chloride 107 mmol/L (98-107); Estimated Creatinine Clearance 60 ml/min; Glucose 127 mg/dl (70-99); Potassium 3.7 mmol/L (3.5-5.1); Sodium 137 mmol/L (135-145); Total Protein 4.4 g/dl (6.3-8.2); eGFR > 60.00
[2025-01-09 06:38] LABS: Magnesium 2.1 mg/dl (1.6-2.3)
--- NOTE | 2025-01-09 06:40 | W.PN.UPDATE ---
Update Note
Progress Note Update
Cardiology Update Note:
-Pt did well overnight. No major issues. Neuro status has improved. Follows commands, moving extremities appropriately and has good strength
-Transfused 2u PRBC's overnight with Lasix between, h/h 11.5/31.5
-Lactic acid down to 1.6 this AM, peaked @ 7.0
-IABP is intact @ 1:1
-Current drips: Heparin @ 550, Dobutamine @ 5, Fentanyl @ 50, Propofol @ 30
-Last CI 1.91, MVO2 70.2, 24hrs u/o 3L
-Vent sentings has also improved, FIO2 down to 70% from 100%, PEEP is down to 5 from 8, metabolic acidosis has been corrected. CXR this AM did not change much to my eyes, f/u official report
-Dr. Cabrera updated on the above
[2025-01-09 06:44] LABS: LDH 985 U/L (120-246)
[2025-01-09] MEDS: KCL 100 IV ×2 (07:22→22:04)
[2025-01-09] MEDS: LIDOCAINE 4% PATCH TOPICAL (07:52)
--- NOTE | 2025-01-09 07:58 | W.PN.INTV ---
Today's Communication / Plan
Recommendations
Continue mechanical ventilation
IABP with discontinuation per interventional cardiology
Albumin assisted diuresis today
Continue cangrelor + heparin drip
Dobutamine with goal CI >2
Stress dose steroids, weaning as she clinically improves
Vanc/Zosyn
Check sputum culture today
Wean down FiO2 as tolerated, and increase PEEP given significant pulmonary edema
Aspiration precautions
Start tube feeds
Goal BG 140�180
Guarded prognosis
[employer] services will continue to follow along
Assessment
-
#1. Cardiac Arrest, initial rhythm V Fib. Inferior STEMI
- s/p EPi x 2, 1 Defibrillation @ 360, followed by ROSC. Intubated on the floor during CPR
- Patient moving and thrashing around post ROCS, target normothermia
- Concern for STEMI, cardiology service on case -brought for left heart cath on 01/08/2025 with significantly elevated right and left-sided filling pressures with reduced cardiac output + elevated SVR consistent with acute cardiogenic shock. Severe
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
- Placement of IABP via right common femoral artery - currently at 1: 1 augmentation; wean off IABP per interventional cardiology
- Continue with heparin drip + cangrelor
- Continue with dobutamine while monitoring for arrhythmias
- Depending on clinical recovery, further coronary interventions would likely require atherectomy support, and may benefit from tertiary care center if additional revascularization is being considered; CT surgery on board and recommendations
appreciated
#2. V Fib (2nd episode in ICU)
- s/p CPR, Defibrillation X1. Amiodarone 300 mg IV stat, Calcium IV stat, MgSO4 2 gm IVPB stat
- ROSC achieved
- Replete K>4, Mg>2
- Telemetry
#3. Cardiogenic shock.
- Continue inotropic therapy with IABP
-LVEF: 60% with mild inferior + inferolateral hypokinesis via TTE from 01/08/2025
- Maintain serum HCO3 >18
- Serial ABG
- Keep MAP > 65
- Continue broad spectrum antibiotics � currently on Zosyn, f/u cultures
- No IVF bolus in view of severe Pulmonary edema
- Considering her stress state with possible aspiration pneumonia, continue stress dose steroids with Solu-Cortef 50 mg IV q6hr - wean as she clinically improves
- Diurese as tolerated given cardiogenic pulmonary edema
- Goal BG 140-180
#3. Acute hypoxic respiratory failure with severe Pulmonary edema
- Ground-glass patchy cities noted on the admission CT scan suggestive of pulmonary edema. Significant worsening related to due to cardiogenic shock
- Unable to rule out component of pneumonia --> send off sputum culture from ETT today; continue Vanc/Zosyn --> check MRSA swab and if negative then DC IV vanco
- Continue with mechanical ventilation with daily SAT/SBT if clinically appropriate
- Maintain plateau pressure <30 and titrate FiO2 + PEEP to keep SpO2 >90-94%
- Continue aspiration precautions; keep HOB >30-45�
- Continue scheduled DuoNebs + prn nebulized bronchodilators
- Oropharyngeal + deep ETT suctioning with subglottic as needed
- Daily CXR + blood gas
- Daily vent adjustments as needed based on blood gas and SaO2
- Low level of sedation with goal RASS as 0 to -2
Other medical diagnoses:
- Acute sigmoid colitis, continue IV Zosyn for now, GI service on case, no further hematochezia noted. At risk of lower GI bleed due to anticoagulation
- History of alcoholism suspected gastritis. Currently on Protonix 40 mg IV twice daily continue. s/p IV thiamine.
- Long standing history of smoking, patient likely has underlying COPD (has evidence of paraseptal emphysema on the upper lobes of CT C-spine on 11/30/2024, as well as paraseptal + centrilobular emphysema on CT chest from 10/28/2023). Continue Flovent
+ scheduled DuoNebs
- Hypertension, hypothyroidism � continue levothyroxine; hold off on antihypertensives given her current shock state on inotropic therapy + IABP
- Failure to thrive. Patient appears cachectic and malnourished. Start tube feeds
Critical care statement: A total of 38 minutes of critical care time was provided for this patient today. This includes management of unstable vital signs, evaluation of the patient at bedside, reviewing the patient�s pertinent medical records
including radiographs, microbiology, laboratory evaluations, and��discussion with primary team, consultants, pharmacy, nutrition, physical therapy, case management, charge nurse, critical care nursing, and respiratory therapy.
Data:
CHEST CTA: 12/2024
1. SEVERE GROUND-GLASS OPACITY throughout the left upper and lower lobes, right upper lobe, and right middle lobe mixed with increased interstitial markings which is new from 10/28/2023. Diagnostic possibilities are (1) severe acute alveolar
cardiogenic pulmonary edema, (2) severe pneumonia, or (3) an acute inflammatory pneumonitis.
2. Moderate elevation of the right hemidiaphragm.
3. Moderate calcific atherosclerotic plaque in the coronary arteries.
ABDOMEN and PELVIS: 12/2024
1. SEVERE ACUTE COLITIS in the SIGMOID COLON and distal descending colon. Mild colitis throughout the ascending colon and proximal descending colon. Diagnostic possibilities are (1) an acute infectious colitis, (2) acute inflammatory bowel disease
(ulcerative colitis), or (3) acute ischemic colitis (less likely given the distribution within the colon).
2. Thickened high attenuation endometrium (possibly endometrial hemorrhage or carcinoma).
3. Mild diffuse urinary bladder wall thickening and small urinary bladder diverticula.
4. Acute inferior endplate fracture of L5.
5. Severe facet joint arthrosis at L4/L5 and L5/S1.
CXR 12/2024: Severe Pulmonary edema
ECHO 04/2022: Normal biventricular size and systolic function without regional wall motion abnormality.
Mild concentric left ventricular hypertrophy.
No significant valvular disease.
No prior study available for comparison.
Subjective Dataa
Subjective Data
Date of Service:
Date of Service: January 09, 2025
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
Subjective:
Patient seen and evaluated today. IABP remains in place at 1: 1 augmentation with BP 81/50 (per reading on IABP machine). BP via right groin IABP: 99/46 via A-line, and Ao: 137/85. PAP: 36/17, CO/CI: 3.45/2.46. Heart rate 81, BP via left groin
A-line: 117/42, EtCO2: 28. Currently intubated on AC/CMV at 32/350/60%/5, with PIP: 30 cmH2O, VTe to 92 cc and breathing at 32 breaths/min. Currently on dobutamine at 5 mcg/kg/min, also on heparin drip + cangrelor as 0.75 mcg/kg/min. Sedated on
propofol at 20 mcg/kg/min + fentanyl at 100 mcg/hr. She is easily arousable but appears anxious. Patient's brother, Ed, present at bedside, all questions were answered.
Review of Systems
General: Unobtainable - Sedation (+ intubated)
Objective Data
Data Reviewed
Vital Signs / I&O / Oxygen:
Vital Signs
Temp Pulse Resp BP Pulse Ox
98 F 91 22 133/91 95
01/09/25 09:00 01/09/25 09:05 01/09/25 09:05 01/09/25 09:00 01/09/25 09:05
Intake and Output
01/08/25 01/09/25 01/10/25
06:59 06:59 06:59
Intake Total 1890 / 1890 2721.8 / 2835.9 272.3 / 272.3
Output Total 1330 / 1330 2990 / 3050 165 / 165
Balance 560 / 560 -268.2 / -214.1 107.3 / 107.3
SaO2 [A/C] 96
SaO2 95
Nasal Cannula flow liters per 100
minute
Physical Exam
General: Respiratory Distress (negative), Chills (negative), Sweats (negative) and Other (Intubated female, anxious appearing, in NAD)
HEENT: Normocephalic, Anicteric and Other (ETT in place)
Cardiovascular: S1-S2 and Peripheral Edema (negative)
Respiratory: Wheeze ([place] upon expiration bilaterally (R >L)), Crackles (Bilateral), Rhonchi (negative), Non-Labored Respirations and Stridor (negative)
GI: Soft, Non Distended, Non Tender and Normal Bowel Sounds
Neurology: Tremors (negative) and Other (Sedated although arousable to voice + tactile stimulation)
Skin: Warm, Dry, Cyanosis (negative) and Jaundice (negative)
Labs/Micro/Reports
Lab Data
01/09/25 05:12
01/09/25 05:12
Laboratory Results
01/08/25 01/08/25 01/08/25
13:42 20:35 21:05
PT 17.9 H
INR 1.45
APTT 34.4 > 200 H*
pH 7.08 L* 7.37
pCO2 39 H 39 H
pO2 163 H 187 H
HCO3 11.6 L* 22.5
O2 Delivery Level Not Reportable
01/09/25 01/09/25
00:14 05:12
PT
INR
APTT 59.6 H
pH 7.46 H 7.49 H
pCO2 38 H 35
pO2 114 H 88
HCO3 27.0 26.7
O2 Delivery Level
Microbiology
01/08/25 08:21 Feces/Stool Shiga Toxin Test - Final
No E. coli Shiga Toxin 1 or 2 detected.
01/08/25 08:22 Feces/Stool Stool Leukocytes - Final
01/06/25 17:59 Nasal Swab Influenza Types A & B (RAGHU) - Final
Negative for Influenza A & B, NAAT
Negative results must be combined with clinical observations
and patient history.
Nucleic Acid Amplification test (NAAT)performed on the
mYwindow platform.
--- NOTE | 2025-01-09 08:00 | PTCARENOTE ---
Patient received from nightman resting in bed, intubated and sedated. NSR w/PVC's via cm, SaO2 @ 97% on ventilator, FiO2 @ 60%. IABP present via R fem, site cdi, augmenting 1:1. L fem venous sheath w/Fowler-Bre catheter, arterial line - leveled,
flushed, and calibrated w/good waveforms returned. Distal pulses palpable, feet warm and pink. Patient arouses to voice, follows commands, OJEDA. Pupils slightly sluggish, R pupil 1, L 2. Thurman catheter to gravity. 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 R nare
NGT to LIWS, small amount greenish/brown drainage noted. Dr. Lantigua at bedside, updated to status. See work list for full assessment, interventions performed, and intravenous infusions and titrations.
[2025-01-09] MEDS: PULMICORT 0.5 MG INH (08:10)
[2025-01-09] MEDS: DUONEB 3 ML INH ×4 (08:10→19:39)
--- NOTE | 2025-01-09 08:42 | W.PN.GI.CBS2 ---
Today's Communication / Plan
-
C/w abx
Monitor stool and OG output thus far no blood
No new GI recs will sign off please call for ?
Assessment / Plan
-
Octavia is a 69yo W with h/o tobacco/ETOH use, HTN and ischemic colitis 2008 who presents with bloody diarrhea and abd pain. 01/08 found to have cardiac arrest and STEMI requiring intubation and urgent LHC.
Impression
- Cardiac arrest with STEMI (01/08)
- Bloody diarrhea and colitis on CT
Suspect ischemic colitis she had this as well in 2008 (seen on Cscope)
Less likely infectious thus far stool studies negative
Cscope in 2022 without signs of UC
- Ground glass opacities in lungs
- HTN
- Tobacco use
- ETOH use
- Leukocytosis
- GERD
- Hyperlipidemia
- Hypothyroidism
Recommendation
- C/w abx to prevent gut bacterial translocation
- Blood cultures thus far NGTD
- Optimize cardiac and BP as you already are doing
- Stool studies neg rest pending
- Monitor stool output
- NPO
- Serial H/H
- Ok to c/w anticoagulation. She is too ill to pursue GI procedures at this juncture.
At this juncture no new GI recs will sign off please call for ?
RN updated bedside.
Subjective
Subjective
Date of Service: January 09, 2025
She had LHC yesterday. CT surgical eval. Currently on IABP. Per RN no BMs. No output of blood from OG tube.
Objective
Data Reviewed
Laboratory Data:
Laboratory Results
01/09/25 05:12
01/09/25 05:12
Laboratory Results
PT 17.9 Sec (11.4-14.6) H 01/08/25 13:42
INR 1.45 01/08/25 13:42
APTT 59.6 Sec (23.4-35.0) H 01/09/25 05:12
Phosphorus 5.1 mg/dl (2.5-4.5) H 01/08/25 13:42
Magnesium 2.1 mg/dl (1.6-2.3) 01/09/25 05:12
Total Bilirubin 0.8 mg/dl (0.2-1.3) 01/09/25 05:12
AST 174 U/L (14-36) H 01/09/25 05:12
ALT 31 U/L (0-35) 01/09/25 05:12
Alkaline Phosphatase 90 U/L (38-126) 01/09/25 05:12
Vital Signs and I&O:
Vital Signs
Temp Pulse Resp BP Pulse Ox
98 F 81 30 128/54 93
01/09/25 08:00 01/09/25 08:11 01/09/25 08:00 01/09/25 08:00 01/09/25 08:11
I&O
01/08/25 01/09/25 01/10/25
06:59 06:59 06:59
Intake Total 1890 / 1890 2721.8 / 2835.9 208.2 / 208.2
Output Total 1330 / 1330 2990 / 3050 120 / 120
Balance 560 / 560 -268.2 / -214.1 88.2 / 88.2
Physical Exam
Physical Exam
GEN: Sedated intubated multiple lines from arms bilaterally and leg pale appearing
HEENT: anicteric, extraocular movements intact, clear oropharynx without exudates
GI: soft, mildy-distended, not tender to palpation, normal active bowel sounds, no hepatosplenomegaly
EXT: warm, well perfused, 2+ edema bilaterally
NEURO: non focal
--- NOTE | 2025-01-09 09:21 | W.PN.CD ---
Today's Communication / Plan
-
Continue aspirin/cangrelor/IV heparin
Continue IABP support
Await additional assessment by neuro
Pulmonary reassessment of this patient who has had diffuse interstitial abnormalities on chest x-ray and CT. Although component can be related to heart failure patient currently with a reasonable wedge pressure and still with lots of abnormalities
on chest x-ray. Continued treatment for possible pneumonia.
Will also await additional input from CT surgery and interventional cardiology regarding additional planning regarding coronary revascularization
Impression / Plan
-
69-year-old woman also with complaints of weakness and abdominal pain. Past medical history of EtOH use/abuse with last use about 1 week ago, hypertension and hypercholesterolemia. Patient also had some blood in stool 5 days prior to admission and
also had maroon stool 01/06/2025. Abdominal CT. 01/06/2025 showed severe acute colitis in the sigmoid colon and distal descending colon mild colitis throughout the ascending and colon proximal descending colon. There was also severe groundglass
opacity throughout the left upper and lower lobes differential included cardiogenic pulmonary edema pneumonia or include inflammatory pneumonitis.
EVENTS Code 9/cardiac arrest on 01/08/2025. Appears to be for primary VF arrest secondary to acute SD as noted above. ROSC after short period of CPR ACLS. Patient returned to sinus rhythm after 1 shock. Intubated during code. Initial ECG raise
concern for inferior ST elevation which was then confirmed with follow-up ECG [employer] mobilized prior to going to [employer] patient required additional pressor support for hypotension and then had an additional VF arrest requiring defibrillation.
-
Patient went for emergent cardiac catheterization01/08/2025 left circumflex was large dominant vessel with a calcified mid 99% stenosis. LAD mid to distal chronic occlusion RCA small nondominant with 40 to 50% mid stenosis. Patient underwent
attempted coronary intervention to left circumflex. Multiple attempts to balloon open left circumflex which was unsuccessful due to severe calcification. Balloon up to 28 RAMON. Postprocedure patient still with severe residual stenosis of the left
circumflex but with MARION-3 flow. IABP placed. Interventional conferred with CT surgery who was also present in the [facility] [employer]. [facility] with PCWP 23 PA 37/24 cardiac index 1.6. Ultimately patient sent back to ICU. After being in ICU stroke alert was
called due to asymmetric pupils. CT negative for hemorrhage and neuroconsulted.
Overnight 01/08/2025 - 01/09/2025 patient's off levo and is just on dobutamine 5. Remains on heparin and cangrelor. Patient received 2 units of PRBCs overnight. Hemoglobin 11.5. Troponin 16 oxygenation stable on vent. Patient remains on vent.
Awake alert responding to questions and commands. Mild asymmetry of pupils which appear reactive. IABP remains one-to-one
Echocardiogram 01/08/2025 estimated ejection fraction 60% with mild inferior and inferolateral hypokinesis moderate to severe TR trace MR estimated PA pressure 50 mmHg
.
Acute IMI.
-VF arrest in hospital with subsequent evidence of IMI on ECG
- Acute ST elevation SD.
- Acute threat to life
-Unsuccessful attempt at PCI of calcified left circumflex severe stenosis.. Patient had multiple attempts at balloon angioplasty but still with residual severe stenosis.
-Peak troponin is 16 so far continue to monitor serial troponins
-Continue aspirin, heparin and cangrelor
-Continue IABP support
-Will await additional discussions between CT surgery and interventional cardiology regarding treatment options and plan. This may include another attempt at high risk complex CPI with orbital atherectomy or high risk CABG.
.
VDRF. Patient's CT on 01/06/2025 with increased interstitial markings concerning for CHF versus pneumonia versus pneumonitis.
-Yesterday patient suspected to have further decompensated heart failure in the setting of acute SD and did receive additional Lasix.
-PCWP appears less than 20.
-X-ray still with diffuse abnormalities.
-Would continue treatment for possible pneumonia and have additional input from pulmonary regarding underlying pulmonary process
.
Stroke alert. Called 01/08/2025 due to asymmetric pupils.
-Patient awake and responsive. Mildly asymmetric pupils left slightly greater than right which appear reactive.
- Head CT without bleeding
-Await further input from neuro
.
Severe acute colitis. Part of patient's initial presentation. Patient reportedly had some bloody stools preceding admission and had some maroon stool on 01/07/2025. Currently without acute bleeding. Received 2 units PRBCs yesterday will need to
monitor closely while patient is on antiplatelet therapy and IV heparin
-Monitor H&H
Monitor evidence of bleeding-
-additional treatment directed by GI
.
Left-sided rib fractures noted on chest x-ray. Note patient did receive CPR for short interval during VF arrest
Physical Exam
Vital Signs/Labs
Vital Signs
Temp Pulse Resp BP Pulse Ox
98 F 91 22 133/91 95
01/09/25 09:00 01/09/25 09:05 01/09/25 09:05 01/09/25 09:00 01/09/25 09:05
01/08/25 01/09/25 01/10/25
06:59 06:59 06:59
Actual Weight 47.4 kg 48.6 kg
01/09/25 05:12
01/09/25 05:12
PT 17.9 Sec (11.4-14.6) H 01/08/25 13:42
INR 1.45 01/08/25 13:42
APTT 59.6 Sec (23.4-35.0) H 01/09/25 05:12
Magnesium 2.1 mg/dl (1.6-2.3) 01/09/25 05:12
Triglycerides 118 mg/dl (10-149) 01/08/25 20:35
Triglycerides Cancelled 01/08/25 20:35
Free T4 0.93 ng/dl (0.78-2.19) 01/08/25 06:17
01/06/25 01/06/25 01/08/25
14:33 15:20 06:17
Wvi-S-Ynijqnpsarx Pept Cancelled [id number]
LAB Results
01/06/25 01/06/25 01/08/25
14:33 15:20 13:42
Troponin I Cancelled < 0.012 0.385 H*
01/08/25 01/09/25
13:42 05:12
Troponin I Cancelled 16.400 H*
Physical Exam
Constitutional: No acute distress and Other (Awake eyes open responding to questions)
EENT: Other (Pupils appear reactive left pupil slightly greater in size than right)
Cardiovascular: Rhythm & rate is regular
Respiratory: Wheeze Absent, Rhonchi Absent and Other (Coarse vented breath sounds)
GI: Soft
Neuro/Psych: Alert
Data Reviewed
-
Date of Service: January 09, 2025
Medical Decision Making: Reviewed Test Results
Echo: Report Reviewed by me
X-Ray/CT/US/MRI/NUC/PET: Report Reviewed by me
Medical Tests (PFT, Pathology etc): Report Reviewed by me
Labs: Labs Reviewed by me
[2025-01-09] MEDS: PROTONIX IV 40 MG IV ×2 (09:29→20:36)
[2025-01-09] MEDS: MIRALAX 17 GRAMS TUBE (09:29)
[2025-01-09] MEDS: NSS (PRESERVATIVE FREE) 10 ML IV ×2 (09:29→20:36)
[2025-01-09] MEDS: THIAMINE INJECTION 200 MG IV (09:29)
[2025-01-09] MEDS: VANCOCIN 200 IV ×2 (09:30→22:57)
--- NOTE | 2025-01-09 10:58 | W.PN.NEURO.1 ---
Today's Communication / Plan
-
Supportive care
Patient has severe stenosis in the right ICA approximated as 70% which will require vascular surgery evaluation after hospitalization
Neuro Assessment/Plan
Assessment
head CT, no bleed
CTA head/neck no LVO
CTP imgs core 0, penumbra 0
Pupillary symmetry after anoxic encephalopathy
Plan
Supportive care
Patient has severe stenosis in the right ICA approximated as 70% which will require vascular surgery evaluation after hospitalization
Will follow as needed
Subjective/Objective
Subjective Data
Date of Service: January 09, 2025
Objective Data
Vital Signs
Temp Pulse Resp BP Pulse Ox
36.6 C 73 30 126/61 99
01/09/25 10:00 01/09/25 10:00 01/09/25 10:00 01/09/25 10:00 01/09/25 10:00
Lab Results
01/09/25 05:12
01/09/25 05:12
PT 17.9 Sec (11.4-14.6) H 01/08/25 13:42
INR 1.45 01/08/25 13:42
APTT 59.6 Sec (23.4-35.0) H 01/09/25 05:12
Sodium 137 mmol/L (135-145) 01/09/25 05:12
Potassium 3.7 mmol/L (3.5-5.1) 01/09/25 05:12
BUN 12 mg/dl (7-17) 01/09/25 05:12
Glucose 127 mg/dl (70-99) H 01/09/25 05:12
Calcium 8.8 mg/dl (8.4-10.2) 01/09/25 05:12
Phosphorus 5.1 mg/dl (2.5-4.5) H 01/08/25 13:42
Ebm-A-Ifqoxsbosjk Pept 882 pg/ml 01/08/25 06:17
Ur Buprenorphine Negative (Negative) 01/07/25 00:22
Patient Allergies
alendronate sodium (From Fosamax) Allergy (Verified 01/06/25 18:24)
Unknown
clindamycin Allergy (Verified 01/06/25 18:24)
Rash
trimethobenzamide HCl (From Tigan) Allergy (Verified 11/30/24 16:04)
felt like she was climbing the wall
Review of Systems
-
Unable to obtain full review of systems at this time due to: Patient Intubation
History Source: Patient
All other systems: Reviewed and negative
Physical Exam
-
General: No Apparent Distress, Intubated and Appears Stated Age
Eyes: Round OU and [place] Conjunctivae
HEENT: Anicteric and Moist Mucous Membranes
Neck: Full Range of Motion
Respiratory: No Dyspnea
Cardiac: No JVD
GI: Non-distended
Skin: Unremarkable
Extremities: No Clubbing, No Cyanosis and No Edema
Extended Neurological Exam
Attention Span & Concentration: Awake, Alert and Interactive
Memory: Unable to Assess
Tremor: Hand Tremor Absent and Head Tremor Absent
Involuntary Movement: None
Speech: Unable to Assess
Cranial Nerve II: Left Eye: Visual Meek Grossly Intact
Cranial Nerve II: Right Eye: Visual Meek Grossly Intact
Cranial Nerves III, IV, : Extraocular Movement: Grossly Intact
Cranial Nerve VII: Facial Symmetry: Normal Facial Symmetry
Cranial Nerves IX, X: Palate Movement: Unable to Assess
Cranial Nerve XII: Tongue Protusion: Unable to Assess
Muscle Strength, Overall: Spontaneously Moves
Cold Sensation: Unable to Assess
Vibration Sensation: Unable to Assess
Gait & Station: Unable to Assess
Data Reviewed
-
CT-A: Report Reviewed
CT-Perfusion: Report Reviewed
CT Head: Report Reviewed
Labs: Report Reviewed
Reviewed with: Physician and Nurse
Old Records: Summarized
Past History
Past History
ED Past Medical History: HTN, Hypercholesterolemia and Other (Migraines, rectal bleed 09/02/2008, endometriosis, stress incontinence)
ED Past Surgical History: and Other (Laparoscopy)
Social History
Tobacco: Smoker
Alcohol: None
Drug: None
Medications
-
Medications:
Generic Name Dose Route Start Last Admin
Trade Name Freq PRN Reason Stop Dose Admin
Acetaminophen 650 mg 01/06/25 20:03
Acetaminophen 325 Mg Tablet PO 02/03/25 20:02
Q4HPRN PRN
mild pain/HERNANDEZ/temp> 100.4F
Acetaminophen 650 mg 01/08/25 18:17
Acetaminophen 325 Mg Tablet PO 02/05/25 18:16
Q4HPRN PRN
mild pain
Albuterol/Ipratropium 3 ml 01/07/25 12:00 01/09/25 08:10
Ipratropium 0.5/Albuterol 3 Mg (3 Ml Ampul) INH 3 ml
R QID YULISSA Administration
Protocol
Albuterol/Ipratropium 3 ml 01/07/25 13:21
Ipratropium 0.5/Albuterol 3 Mg (3 Ml Ampul) INH
R Q4HPRN PRN
SOB/wheezing
Protocol
Aspirin 81 mg 01/09/25 11:00
Aspirin 81 Mg Chewable Tablet PO 02/06/25 10:59
DAILY YULISSA
Fentanyl Citrate 50 mcg 01/08/25 18:11 01/08/25 22:35
Fentanyl (50 Mcg/Ml) 100 Mcg/2 Ml Ampul IV 01/22/25 18:10 50 mcg
[id number] PRN Administration
see protocol
Protocol
Fluticasone Propionate 4 puff 01/09/25 20:00
Fluticasone 110mcg Inhaler INH 02/06/25 19:59
R BID YULISSA
Hydrocortisone Sodium Succinate 50 mg 01/09/25 00:00 01/09/25 06:19
Hydrocortisone Sodium Succinate 100 Mg/2 Ml Vial IV 02/06/25 00:00 50 mg
Q6 YULISSA Administration
Folic Acid 1 mg/ Sodium 50.2 mls @ 200.8 mls/hr 01/06/25 20:03
Chloride IV 02/03/25 20:02
DAILYPRN PRN
if NPO
Norepinephrine Bitartrate 4 mg in 250 mls @ 0 mls/hr 01/08/25 13:30 01/08/25 14:11
Levophed IV 250 mls
PER PROTOCOL YULISSA Administration
Protocol
Per Protocol
Vasopressin 20 units in 100 mls @ 0 mls/hr 01/08/25 14:15 01/08/25 14:12
Pitressin IV 100 mls
On Hold: 01/08/25 18:28 PER PROTOCOL YULISSA Administration
Protocol
Per Protocol
Fentanyl Citrate 1,000 mcg in 100 mls @ 0 mls/hr 01/08/25 18:15 01/08/25 20:05
Sublimaze IV 100 mls
PER PROTOCOL YULISSA Administration
Protocol
Per Protocol
Propofol 1,000,000 mcg in 100 mls @ 0 mls/hr 01/08/25 18:15 01/08/25 23:49
Diprivan IV 100 mls
PER PROTOCOL YULISSA Administration
Protocol
Per Protocol
Cangrelor 50,000 mcg/ Sodium 255 mls @ 10.878 mls/hr 01/08/25 18:30 01/08/25 20:56
Chloride IV 255 mls
.[id number] YULISSA Administration
0.75 MCG/KG/MIN
Heparin Sodium 25,000 units in 250 mls @ 0 mls/hr 01/08/25 18:30 01/08/25 21:00
Heparin 70203 Units/250 Ml IV 250 mls
PER PROTOCOL YULISSA Administration
Protocol
Per Protocol
Dobutamine HCl/Dextrose 500 mg in 250 mls @ 0 mls/hr 01/08/25 20:30 01/08/25 20:52
Dobutrex 500 Mg IV 250 mls
PER PROTOCOL YULISSA Administration
Protocol
Per Protocol
Vancomycin HCl 1 gram in 200 mls @ 200 mls/hr 01/08/25 22:00 01/09/25 09:30
Vancocin IV 200 mls
Q12H YULISSA Administration
Piperacillin Sod/Tazobactam Sod 3.375 gram in 50 mls @ 100 mls/hr 01/09/25 04:00 01/09/25 10:34
Zosyn IV 50 mls
Q6H YULISSA Administration
Levothyroxine Sodium 75 mcg 01/07/25 06:00 01/09/25 06:19
Levothyroxine 75 Mcg Tablet PO 02/04/25 05:59 75 mcg
DAILY @ 0600 YULISSA Administration
Lidocaine 1 patch 01/07/25 19:35 01/09/25 07:52
Lidocaine 4% Topical Patch TOPICAL 02/04/25 19:34 Not Given
DAILY YULISSA
Protocol
Lorazepam 1 mg 01/06/25 20:03
Lorazepam 1 Mg Tablet PO 02/03/25 20:02
Q2HPRN PRN
MSAS 5-7
Lorazepam 1 mg 01/06/25 20:09
Lorazepam 1 Mg Tablet PO 02/03/25 20:08
Q1HPRN PRN
MSAS 8-11
Lorazepam 2 mg 01/06/25 20:03
Lorazepam 2 Mg/Ml Vial IV 02/03/25 20:02
Q1HPRN PRN
MSAS > 11
Nicotine 21 mg 01/07/25 14:00 01/09/25 09:30
Nicotine 21 Mg Patch TRANSDERM 02/04/25 13:59 Not Given
DAILY YULISSA
Oxycodone HCl 5 mg 01/07/25 08:33
Oxycodone 5 Mg Regular Release Tablet PO 01/21/25 08:32
Q4HPRN PRN
moderate pain
Oxycodone HCl 10 mg 01/07/25 08:33
Oxycodone 10 Mg Regular Release Tablet PO 01/21/25 08:32
Q4HPRN PRN
severe pain
Pantoprazole Sodium 40 mg 01/07/25 11:00 01/09/25 09:29
Pantoprazole Sodium 40 Mg/10 Ml Vial IV 02/04/25 10:59 40 mg
BID YULISSA Administration
Polyethylene Glycol 17 grams 01/09/25 08:00 01/09/25 09:29
Polyethylene Glycol Powder 17 Grams Packet TUBE 02/06/25 07:59 17 grams
DAILY YULISSA Administration
Sodium Chloride 0 ml 01/06/25 20:03
Sodium Chloride 0.9% (Preservative Free) 10 Ml Vial IV 02/03/25 20:02
PRN PRN
To dilute IV Ativan
Protocol
Sodium Chloride 0 flush 01/06/25 21:00
Sodium Chloride 0.9% (Flush) Syringe IV 02/03/25 20:59
PER PROTOCOL YULISSA
Sodium Chloride 10 ml 01/07/25 11:00 01/09/25 09:29
Sodium Chloride 0.9% (Preservative Free) 10 Ml Vial IV 02/04/25 10:59 10 ml
BID YULISSA Administration
--- NOTE | 2025-01-09 11:18 | W.PN.HOSP.TC ---
Today's Communication/Plan
-
Vent support
Intra-aortic balloon pump
IV heparin and antiplatelet
IV diuresis.
Monitor hemoglobin
Total Critical Care Time_45____ minutes. I was immediately available to the patient and staff. I personally examined, reviewed labs, diagnostic images/reports, interpretations, treatment plans, discussed patient care with other providers and
family or caregivers (if patient is unable to make decisions), entered orders as appropriate and documented the medical record.
Assessment / Plan
Assessment / Plan
Impression
Status post V-fib arrest 01/08/2025.
STEMI.
Cardiogenic shock
VDRF.
Bilateral interstitial infiltrates/groundglass pattern
Stroke alert.
Admitted with acute sigmoid colitis with hematochezia
Acute blood loss anemia requiring transfusion.
Lactic acidosis in the settings of cardiogenic shock, improved
Hypervolemic hyponatremia
Conditions prior to admission:
Essential hypertension
Hypothyroidism on replacement
Alcohol use disorder at risk for withdrawal.
Tobacco use disorder/dependency
Anxiety/depression
History of recent fall with left radius fracture
Plan
Status post V-fib arrest with ROSC on 01/08.
STEMI.
Cardiogenic shock
Urgent catheterization 01/08 with left circumflex large dominant vessel with calcified 99% stenosis, LAD mild to distal chronic occlusive RCA small nondominant with 40 to 50% stenosis. Not able to revascularize left circumflex.
Right heart cath with PCWP 23, PA 37/24, cardiac index 1.6
Echo 01/08: LVEF 60% with mild inferior and inferior lateral hypokinesis, moderate to severe TR, trace MR, estimated PA pressure 50 mmHg.
Unsuccessful attempt to revascularize calcified left circumflex severe stenosis over PCI.
Initiated on intra-aortic balloon pump
Currently on IV heparin, aspirin, cangrelor
Currently on dobutamine
Await CT surgery/interventional cardiology decision on further approach regarding coronary revascularization
Attempt to wean off pulse dose of systemic steroids, currently on hydrocortisone 50 mg IV every 6
VDRF, status post V-fib arrest.
Remains on vent support.
Chest x-ray with bilateral diffuse interstitial pattern likely related to pulmonary edema.
Remains at risk for VAP. Monitor secretions. Empiric antibiotics coverage with vancomycin and Zosyn.
Pulmonary input appreciated
Stroke alert called on 01/08 with concern of unequal pupils.
Follow-up imaging including CT/CT perfusion without evidence of acute CVA on prelim breath
Neurology follow-up
Possibly for repeated imaging
Monitor closely while on anticoagulation and antiplatelet agents
Acute sigmoid colitis.
Given presentation likely ischemic colitis.
Diarrhea and hematochezia improved. Monitor closely.
Empiric antibiotics Zosyn with goal to avoid bacterial translocation
Alcoholic gastritis, reported maroon stools on admission per
Continue IV PPI
Acute blood loss
Suspect in the settings of hematochezia as well as dilutional effect.
Hemoglobin dipped at the lowest at 8.1. Status post transfusion up to 11.5. Monitor closely.
Continue IV PPI twice daily
Recent fall with left distal radius fracture on 11/30/2024
-Cast in place was due to follow-up with Dr. Easton 01/07/2025
-Will need to follow-up with Dr. Easton in the office after discharge
#Hypertension
On losartan [employer]
#Hypothyroidism
Continue Synthroid 75 mcg p.o. daily when able
#Anxiety/depression
On Zoloft 50 mg [employer]
#Cigarette nicotine dependency
1 pack a day x 48
#Alcohol use disorder
Drinks 4 to 6 ounces of rum and coke nightly
MSAS protocol, thiamine, folic acid
# Hypervolemic hyponatremia
Serum osmolality 263
Follow TSH. Normal random cortisol
Anticipated Discharge: > 48 hours
Subjective/Interval History
-
Date of Service: January 09, 2025
Objective Data
-
Labs:
Laboratory Results
01/09/25 01/09/25 01/09/25
00:14 05:12 12:00
WBC 15.2 H
Hgb 11.5 L D
Hct 31.5 L
Plt Count 184 D
APTT 59.6 H Pending
HCO3 27.0 26.7
Sodium 137
Potassium 3.7
Chloride 107
Carbon Dioxide 29
BUN 12
Creatinine 0.6
Glucose 127 H
Calcium 8.8
Total Bilirubin 0.8
AST 174 H
ALT 31
Alkaline Phosphatase 90
Vital Signs:
Vital Signs
Temp Pulse Resp BP Pulse Ox
97.8 F 73 12 138/80 96
01/09/25 11:00 01/09/25 11:00 01/09/25 11:00 01/09/25 11:00 01/09/25 11:00
I&O
01/08/25 01/09/25 01/10/25
06:59 06:59 06:59
Intake Total 1890 / 1890 2721.8 / 2835.9 633.0 / 633.0
Output Total 1330 / 1330 2990 / 3050 265 / 265
Balance 560 / 560 -268.2 / -214.1 368.0 / 368.0
Physical Exam
-
General: Well Developed and No Apparent Distress
HEENT: Normocephalic, Atraumatic, Moist Mucous Membranes and Other (ET tube with clear secretion); Negative PERRLA (Right pupil 2 mm reactive/left pupil 4 mm reactive to light)
Respiratory: Decreased Breath Sounds; Negative Wheezes or Rhonchi
Cardiac: Regular Rhythm and S1/S2; Negative Murmur, Rub or Gallop
GI: Soft, Nontender, Nondistended and Normal Bowel Sounds; Negative Organomegaly
Rectal: Deferred by Provider
Musculoskeletal: No Clubbing, No Cyanosis and No Edema
Skin: Negative Rash
Neuro: Awake, Nonfocal/Grossly Intact and Other (Awake, intubated, following simple commands)
[2025-01-09] MEDS: SUBLIMAZE 100 IV (11:21)
[2025-01-09] MEDS: LOW STRENGTH ASPIRIN 81 MG PO (11:23)
[2025-01-09 11:48] LABS: Troponin I 15.900 ng/ml
--- NOTE | 2025-01-09 12:00 | PTCARENOTE ---
Patient resting comfortably, arouses to voice. Hemodynamics stable. Hospitalist at bedside, updated.
[2025-01-09 12:24] LABS: APTT 122.3 Sec (23.4-35.0)
[2025-01-09] MEDS: SUBLIMAZE 50 MCG IV ×2 (13:37→19:38)
--- NOTE | 2025-01-09 14:06 | PTCARENOTE ---
Dr. Norwood to bedside, updated. Ventilator setting changes made, unable to wean FiO2 at this time.
[2025-01-09 14:54] LABS: Hematocrit 30.7 % (37.0-47.0); Hemoglobin 10.7 g/dL (12.0-16.0)
--- NOTE | 2025-01-09 15:00 | PN.CDI ---
CDI
- -
CDI:
Physician Documentation Request
Admit Date: 01/06/25 19:07
Dear Cardiology,
Please review the following and provide your response in the progress notes.
Clinical Indicators:
- Patient admit for acute colitis,
- Cardiac arrest with vfib, STEMI, cardiogenic shock
- 01/08 Cardiology 'Patient had higher risk with evidence of acute heart failure'
- 01/09 Cardiology 'CT on 01/06/2025 with increased interstitial markings concerning for CHF'
- 'patient suspected to have further decompensated heart failure in the setting of acute MA and did receive additional Lasix'
- 01/08 Echo EF 60%
- 20mg IV Lasix x 2
- 40mg IV Lasix x 2
Laboratory Tests
01/06/25 01/08/25
15:20 06:17
[id number]-M-Cxxmvpoyjjv Pept [phone]
Please provide further specificity regarding the most likely type and acuity of CHF you are evaluating, treating or monitoring.
Type Acuity
Systolic Acute
Diastolic Chronic
Combined Systolic/Diastolic Acute on Chronic
Other (please specify)
CHF ruled out
Use of terms such as suspected, likely, concern for, or probable (associated with a specific diagnosis that is being evaluated, monitored, or treated as if it exists) are acceptable and can be coded in the inpatient setting, when documented at the
time of discharge.
Thank you,
Cony Collazo RN
CDI Specialist
Please use your independent medical judgment in providing your response.
[2025-01-09] MEDS: FLEXBUMIN 100 IV (15:12)
--- NOTE | 2025-01-09 15:19 | CM ---
CM following for DC planning needs.
Pt. has transferred to CVICU. She is now vented/sedated.
I have reviewed initial assessment. Pt. resides w/ her brother in a private home. She is indep. at baseline, + drives, no assisted device. Per initial assessment, dtr. resides in [place] and [place] [facility] [place]
PT had evaluated patient prior to intubation. Recommendation at that time was for SNF.
Will need to assess needs/functional mobility upon extubation to ascertain DC plan.
CM will follow closely.
[2025-01-09] MEDS: KENGREAL 255 MCG IV (15:49)
[2025-01-09] MEDS: DIPRIVAN 100 IV (16:19)
[2025-01-09] MEDS: LASIX 40 MG IV (16:43)
--- NOTE | 2025-01-09 17:40 | W.PN.CD ---
Today's Communication / Plan
-
Wean vent as tolerated. PaO2/FiO2 consistent with ALI/ARDS.
Wedge 15 mmHg.
Continue antibiotics.
Monitor for further blood loss.
Intervention cardiology/CT surgery are weight options for local high risk intervention, deferred intervention to allow for pulmonary recovery and transfer to [facility].
Currently leaning towards transfer, but this remains an active topic of discussion.
Impression / Plan
-
Impression/Plan: 69-year-old woman with past medical history of EtOH use/abuse (last use about 1 week ago), hypertension, hypercholesterolemia, EtOH use, chronic tobacco abuse (48 hours) and recent fall admitted with abdominal pain with an episode
of bloody diarrhea, diagnosed with colitis. Hospital course was subsequently complicated by ST elevation and VF arrest leading to intubation/VDRF and cardiac catheterization, which demonstrated severe CAD with cardiogenic shock requiring IABP MCS.
#Inferior AK
-Acute, threat to life.
-VF arrest in hospital with subsequent evidence of IMI on ECG.
-Cardiac catheterization revealed MINCEMEAT MAKER of dLAD, and severe, calcified LCx, s/p unsuccessful attempt PCI. Patient had multiple attempts at balloon angioplasty but still with residual severe stenosis.
-PA catheter placed with demonstrated cardiogenic shock (SCAI class E). IABP placed.
-This has subsequently resolved with CI consistently > 2.2. Pressors have been weaned.
-Troponin peaked at 16.4.
-Lactate 1.1 --> 7.0 --> 6.5 --> 4.6 --> 1.6 --> 1.1 (17:11).
-From a neurologic standpoint, she was spontaneously moving all extremities and neurology is prescribing supportive care.
-Discussed at length with CT surgery, non-invasive cardiology and interventional cardiology colleagues. The patient remains hemodynamically stable and troponin has peaked with minimal LV function impact. VF is almost certainly related to ischemia
(ST elevations seen on telemetry prior to VF). It will almost certainly happen again. The patient will need revascularization, the question is venue and timing.
-Options include:
-High risk (MCS supported) orbital atherectomy/PCI due to dense calcification. Risk is inherent given circumflex dominance and LAD MINCEMEAT MAKER.
-High risk CABG. High risk due to pulmonary process, lack of reliable LAD target and high likelihood of ECMO post op.
-Allow for pulmonary situation to improve and consider CABG when post operative ECMO may be less likely.
-Transfer for definitive management given high potential for emergent transfer in the face of complications (surgical or percutaneous).
-Discussions are currently leaning towards transfer, though this remains an ongoing discussion.
-In the mean time, wean IABP to 2:1 (tomorrow) to assess her dependence on counterpulsation.
#VDRF
-Acute, threat to life.
-Pulm/CC involved - recommendations appreciated. Struggling to wean FiO2.
-Patient's CT on 01/06/2025 with increased interstitial markings concerning for CHF versus pneumonia versus pneumonitis - but preceded her VF arrest.
-PADP is never > 20 mmHg. I wedged catheter (15 mmHg), making cardiogenic pulmonary edema highly unlikely.
-DDx includes diffuse, bilateral PNA (+ leukocytosis, but very non-specific) or ARDS (non-cardiogenic pulmonary edema). PaO2 88, FiO2 0.6 --> ratio of 146, consistent with ALI/ARDS.
-Vent management per pulmonology/critical care. ARDSNET ventilation?
#Stroke alert
-Called 01/08/2025 due to anisocoria.
-Patient awake and responsive. Mildly asymmetric pupils left slightly greater than right which appear reactive.
-Head CT negative for ICH.
-She is moving extremities and responding appropriately to questions.
-Neurology recommending supportive care.
#Severe acute colitis
-Patient's initial presentation.
-Currently no acute bleeding.
-S/P 2 units PRBCs.
-Hbg relatively stable.
Critical Care Time = 60 minutes.
Subjective/Interval History:
Cardiac catheterization for VF arrest showed severe CAD.
LCX felt to be culprit, non-dilatable, densely calcified lesion.
PA catheter showed cardiogenic shock.
IABP placed given history of bleeding.
Troponin peaked at 16.
No further GI blood loss. GI has signed off.
Transfused 2 units PRBC's.
Stroke alert called for anisocoria.
Weight is up 1.2 kg
CI 2.79.
Lactic acid has normalized.
DATA:
CT Chest/abdomen/pelvis, 01/06/2025:
IMPRESSION:
CHEST CTA:
1. SEVERE GROUND-GLASS OPACITY throughout the left upper and lower lobes, right upper lobe, and right middle lobe mixed with increased interstitial markings which is new from 10/28/2023. Diagnostic possibilities are (1) severe acute alveolar
cardiogenic pulmonary edema, (2) severe pneumonia, or (3) an acute inflammatory pneumonitis.
2. Moderate elevation of the right hemidiaphragm.
3. Moderate calcific atherosclerotic plaque in the coronary arteries.
ABDOMEN and PELVIS:
1. SEVERE ACUTE COLITIS in the SIGMOID COLON and distal descending colon. Mild colitis throughout the ascending colon and proximal descending colon. Diagnostic possibilities are (1) an acute infectious colitis, (2) acute inflammatory bowel disease
(ulcerative colitis), or (3) acute ischemic colitis (less likely given the distribution within the colon).
2. Thickened high attenuation endometrium (possibly endometrial hemorrhage or carcinoma).
3. Mild diffuse urinary bladder wall thickening and small urinary bladder diverticula.
4. Acute inferior endplate fracture of L5.
5. Severe facet joint arthrosis at L4/L5 and L5/S1.
Cardiac Catheterization/PCI/MCS, 01/08/2025:
CONCLUSIONS
1. Significantly elevated right and left-sided filling pressures with reduced cardiac output and elevated systemic vascular resistance consistent with acute cardiogenic shock (SCAI stage E; ESCORT SERVICE ATTENDANT is less than 0.6)
2. Severe multivessel coronary artery disease with LAD MINCEMEAT MAKER, 99% calcified mid left circumflex stenosis and 80% ostial OM stenosis.
3. Plain old balloon angioplasty of the heavily calcified 99% mid left circumflex stenosis with a 2.5 x 15 mm NC balloon at 28 niko with severe residual waist.
4. Unsuccessful PCI with residual 99% stenosis and a heavily calcified lesion with MARION-3 flow into the distal vessel.
5. Successful placement of a 40 cc intra-aortic balloon pump via right common femoral artery.
Transthoracic Echocardiogram, 01/08/2025:
CONCLUSIONS
Normal left ventricular chamber size and overall systolic function; left
ventricular ejection fraction is 60% by modified Rivas's method. There is
mild inferior and inferolateral hypokinesis.
Normal right ventricular size and function.
Mildly thickened mitral valve leaflets with trace mitral regurgitation.
Sclerotic, trileaflet aortic valve with normal leaflet excursion and no
regurgitation seen.
Tricuspid valve opens normally with moderate to severe tricuspid regurgitation.
Estimated pulmonary artery pressure of 50 mmHg, .
Compared to prior study 05/06/2022 there is mild hypokinesis as noted and PA
pressure is now 50 mmHg.
CXR, 01/09/2025:
IMPRESSION:
Lines and tubes as described above.
Stable pulmonary changes suggestive of pulmonary edema versus pneumonia.
Stable left-sided rib fractures.
Physical Exam
Vital Signs/Labs
Vital Signs
Temp Pulse Resp BP Pulse Ox
36.6 C 85 15 164/84 99
01/09/25 17:00 01/09/25 17:10 01/09/25 17:10 01/09/25 17:00 01/09/25 17:10
01/08/25 01/09/25 01/10/25
11:59 11:59 11:59
Actual Weight 47.4 kg 48.6 kg
01/09/25 14:43
01/09/25 05:12
PT 17.9 Sec (11.4-14.6) H 01/08/25 13:42
INR 1.45 01/08/25 13:42
APTT 122.3 Sec (23.4-35.0) H 01/09/25 12:00
Magnesium 2.1 mg/dl (1.6-2.3) 01/09/25 05:12
Triglycerides 118 mg/dl (10-149) 01/08/25 20:35
Triglycerides Cancelled 01/08/25 20:35
Free T4 0.93 ng/dl (0.78-2.19) 01/08/25 06:17
01/06/25 01/06/25 01/08/25
14:33 15:20 06:17
Pyq-Y-Uthqozshhql Pept Cancelled [id number]
LAB Results
01/08/25 01/08/25 01/09/25
13:42 13:42 05:12
Troponin I 0.385 H* Cancelled 16.400 H*
01/09/25
11:03
Troponin I 15.900 H*
Physical Exam
Constitutional: No acute distress and Comfortable
EENT: Anicteric and Moist mucous membranes
Cardiovascular: Rhythm & rate is regular, Pedal edema is absent, S1S2 is normal and Murmur/rub/gallop absent
Respiratory: Rhonchi Present
GI: Soft, Distention absent, Flat, Non tender and Normal bowel sounds
Neuro/Psych: Other (Intubated, sedated, but responding to questions appropriately.)
Other: Cath Site (Bilateral femoral access sites are C/D/I with sheaths/catheters in good position.)
Data Reviewed
-
Date of Service: January 09, 2025
Medical Decision Making: Reviewed Test Results, Independent Historian Assessment, Test Interpretation and Review of Case with other Provider
EKG: Tracing Personally Visualized and interpreted and Report Reviewed by me
Echo: Tracing Personally Visualized and interpreted and Report Reviewed by me
X-Ray/CT/US/MRI/NUC/PET: Image Personally Visualized and interpreted, Report Reviewed by me, Discussed with Physician and Discussed with Nurse
Medical Tests (PFT, Pathology etc): Image Personally Visualized and interpreted, Report Reviewed by me, Discussed with Physician and Discussed with Nurse
Labs: Labs Reviewed by me
Old Records: Reviewed
--- NOTE | 2025-01-09 18:39 | PTCARENOTE ---
Dr. Campa at bedside, updated to status. Hemodynamics obtained and reviewed. ABG sent per physician request. Patient updated, follows commands and nods appropriately.
[2025-01-09 18:45] LABS: B.E. 2.3 mmol/L; HCO3 27.3 mmol/L (21-28); O2 Saturation % 98.8 % (94-98); PCO2 43 mmHg (32-35); PO2 96 mmHg (83-108)
[2025-01-09 18:55] LABS: APTT 99.4 Sec (23.4-35.0)
[2025-01-09] MEDS: FLOVENT 110 MCG INHALER 4 PUFF INH (19:39)
--- NOTE | 2025-01-09 20:32 | PTCARENOTE ---
pt received from previous rn. Sedated and intubated. Patient arouses to voice, follows commands, OJEDA. Pupils slightly sluggish, R pupil 1, L 2. NSR per tele monitor. HR 80s. +pulses, ETT 8.0 at 23 cm at lip; Ventilator settings A/C 60%/22/350/8. Pox
97% lungs diminished and coarse Thurman draining clear yellow urine. NGT @ R nare connected to low intermittent wall suction. hypoactive bs. Surgical sites intact; Left arm cast present; IABP present in right femoral access - frequency 1:1, Left
femoral arterial A-line present, Blanchard-linda present in left femoral venous access - all lines leveled and zeroed; PIV intact.
gtts:
Dobutamine.
Heparin
Cangrelor
Propofol
Fentanyl
[2025-01-09] MEDS: VITAMIN B1 100 MG TUBE (20:36)
[2025-01-09 20:39] LABS: B.E. 3.2 mmol/L; HCO3 28.5 mmol/L (21-28); O2 Saturation % 99.8 % (94-98); PCO2 46 mmHg (32-35); PO2 111 mmHg (83-108)
[2025-01-09 21:29] LABS: Blood Urea Nitrogen 14 mg/dl (7-17); Calcium 8.0 mg/dl (8.4-10.2); Chloride 105 mmol/L (98-107); Estimated Creatinine Clearance 51 ml/min; Glucose 140 mg/dl (70-99); Magnesium 1.7 mg/dl (1.6-2.3); Potassium 3.2 mmol/L (3.5-5.1); Sodium 139 mmol/L (135-145); eGFR > 60.00
[2025-01-09 21:45] LABS: Carbon Dioxide 27 mmol/L (22-30)
[2025-01-09] MEDS: MAGNESIUM SULFATE 50 IV (22:04)
--- NOTE | 2025-01-09 23:48 | PTCARENOTE ---
pt resting comfortably. VSS, NSR per tele monitor. arouses to voice and is able to follow all commands. assessment unchanged.
[2025-01-10] VITALS (10 sets, daily range): BP systolic 140–175; BP diastolic 92–114; BMI 22.3
[2025-01-10] MEDS: SOLU-CORTEF 50 MG IV ×5 (00:30→23:06)
[2025-01-10 00:45] LABS: APTT 100.9 Sec (23.4-35.0)
[2025-01-10] MEDS: SUBLIMAZE 100 IV ×3 (02:32→23:10)
[2025-01-10] MEDS: DIPRIVAN 100 IV ×3 (03:12→18:41)
[2025-01-10] MEDS: SUBLIMAZE 50 MCG IV (03:27)
[2025-01-10] MEDS: ZOSYN 50 IV ×4 (04:43→22:23)
[2025-01-10 05:27] LABS: B.E. 0.7 mmol/L; HCO3 26.0 mmol/L (21-28); O2 Saturation % 97.3 % (94-98); PCO2 44 mmHg (32-35); PO2 81 mmHg (83-108)
[2025-01-10 05:54] LABS: APTT 77.0 Sec (23.4-35.0)
[2025-01-10 05:56] LABS: Hematocrit 25.1 % (37.0-47.0); Hemoglobin 8.8 g/dL (12.0-16.0); Mean Corp Hgb Conc. 35.1 g/dL (33.0-37.0); Mean Corpuscular Volume 91.3 fL (81.0-99.0); Platelet Count 132 10^3/uL (130-400); Red Cell Dist. Width 19.1 % (11.5-14.5)
[2025-01-10] MEDS: SYNTHROID 75 MCG TUBE (06:05)
[2025-01-10 06:47] LABS: ALT (SGPT) 18 U/L (0-35); AST (SGOT) 106 U/L (14-36); Albumin 2.7 g/dl (3.5-5.0); Alkaline Phosphatase 63 U/L (38-126); Blood Urea Nitrogen 16 mg/dl (7-17); Calcium 7.5 mg/dl (8.4-10.2); Carbon Dioxide 28 mmol/L (22-30); Chloride 108 mmol/L (98-107); Estimated Creatinine Clearance 60 ml/min; Glucose 149 mg/dl (70-99); Magnesium 2.5 mg/dl (1.6-2.3); Potassium 3.6 mmol/L (3.5-5.1); Sodium 139 mmol/L (135-145); Total Protein 4.8 g/dl (6.3-8.2); eGFR > 60.00
[2025-01-10] MEDS: DUONEB 3 ML INH ×4 (07:18→19:47)
[2025-01-10] MEDS: FLOVENT 110 MCG INHALER 4 PUFF INH ×2 (07:18→19:47)
--- NOTE | 2025-01-10 08:22 | W.PN.INTV ---
Today's Communication / Plan
Recommendations
Continue mechanical ventilation
IABP with discontinuation per interventional cardiology; patient is excepted to [facility], hence depending on bed availability, may make more sense keeping IABP in place for safer transport
Albumin assisted diuresis yesterday
Continue cangrelor + heparin drip
Dobutamine with goal CI >2 and MVO2 > 65-70
Stress dose steroids, weaning as she clinically improves
Vanc/Zosyn
Follow up sputum culture from yesterday
Wean down FiO2 as tolerated
Aspiration precautions
Starting tube feeds today
Goal BG 140�180
Guarded prognosis
Telecommunicator services will continue to follow along; multiple discussions held between interventional cardiology, cardiology and hospitalist team, and patient would be better suited at a tertiary care center. She has been accepted to [facility] and is
awaiting a bed.
Assessment
-
#1. Cardiac Arrest, initial rhythm V Fib. Inferior STEMI
- s/p EPI x 2, 1 Defibrillation @ 360, followed by ROSC. Intubated on the floor during CPR
- Patient moving and thrashing around post ROCS, target normothermia
- Concern for STEMI, cardiology service on case -brought for left heart cath on 01/08/2025 with significantly elevated right and left-sided filling pressures with reduced cardiac output + elevated SVR consistent with acute cardiogenic shock. Severe
MV CAD with LAD AUTO TOP MECHANIC, 99% calcified mid LCx stenosis + 80% ostial OM stenosis; probe of heavily calcified 99% mid LCx stenosis, and unsuccessful PCI with residual 9 9% stenosis and a heavily calcified lesion with MARION-3 flow into the distal vessel.
- Placement of IABP via right common femoral artery - currently at 1: 1 augmentation; wean off IABP per interventional cardiology
- Continue with heparin drip + cangrelor
- Continue with dobutamine while monitoring for arrhythmias, and trend MVO2 with goal >65-70
- Depending on clinical recovery, further coronary interventions would likely require atherectomy support, and may benefit from tertiary care center if additional revascularization is being considered; CT surgery on board and recommendations
appreciated. Multiple discussions held today (01/10), and patient has been accepted to [facility], and is awaiting a bed to CCU
#2. V Fib (2nd episode in ICU)
- s/p CPR, Defibrillation X1. Amiodarone 300 mg IV stat, Calcium IV stat, MgSO4 2 gm IVPB stat
- ROSC achieved
- Replete K>4, Mg>2
- Telemetry
#3. Cardiogenic shock.
- Continue inotropic therapy with IABP
- LVEF: 60% with mild inferior + inferolateral hypokinesis via TTE from 01/08/2025
- Maintain serum HCO3 >18
- Serial ABG
- Keep MAP > 65
- Continue broad spectrum antibiotics � currently on Zosyn, f/u cultures; vancomycin stopped as MRSA swab negative
- No IVF bolus in view of severe Pulmonary edema
- Considering her stress state with possible aspiration pneumonia, continue stress dose steroids with Solu-Cortef 50 mg IV q6hr - wean as she clinically improves
- Diurese as tolerated given cardiogenic pulmonary edema
- Goal BG 140-180
#3. Acute hypoxic respiratory failure with severe Pulmonary edema
- [place] patchy cities noted on the admission CT scan suggestive of pulmonary edema. Significant worsening related to due to cardiogenic shock
- Unable to rule out component of pneumonia --> send off sputum culture from ETT today; continue Zosyn --> MRSA swab negative --> IV vanco DC'd
- Continue with mechanical ventilation with daily SAT/SBT if clinically appropriate
- Maintain plateau pressure <30 and titrate FiO2 + PEEP to keep SpO2 >90-94%
- Continue aspiration precautions; keep HOB >30-45�
- Continue scheduled DuoNebs + prn nebulized bronchodilators
- Oropharyngeal + deep ETT suctioning with subglottic as needed
- Daily CXR + blood gas
- Daily vent adjustments as needed based on blood gas and SaO2
- Low level of sedation with goal RASS as 0 to -2
Other medical diagnoses:
- Acute sigmoid colitis, continue IV Zosyn for now, GI service on case, no further hematochezia noted. At risk of lower GI bleed due to anticoagulation
- History of alcoholism suspected gastritis. Currently on Protonix 40 mg IV twice daily continue. s/p IV thiamine.
- Long standing history of smoking, patient likely has underlying COPD (has evidence of paraseptal emphysema on the upper lobes of CT C-spine on 11/30/2024, as well as paraseptal + centrilobular emphysema on CT chest from 10/28/2023). Continue Flovent
+ scheduled DuoNebs
- Hypertension, hypothyroidism � continue levothyroxine; hold off on antihypertensives given her current shock state on inotropic therapy + IABP
- Failure to thrive. Patient appears cachectic and malnourished. Start tube feeds
Critical care statement: A total of 41 minutes of critical care time was provided for this patient today. This includes management of unstable vital signs, evaluation of the patient at bedside, reviewing the patient�s pertinent medical records
including radiographs, microbiology, laboratory evaluations, and��discussion with primary team, consultants, pharmacy, nutrition, physical therapy, case management, charge nurse, critical care nursing, and respiratory therapy.
Data:
CHEST CTA: 12/2024
1. SEVERE GROUND-GLASS OPACITY throughout the left upper and lower lobes, right upper lobe, and right middle lobe mixed with increased interstitial markings which is new from 10/28/2023. Diagnostic possibilities are (1) severe acute alveolar
cardiogenic pulmonary edema, (2) severe pneumonia, or (3) an acute inflammatory pneumonitis.
2. Moderate elevation of the right hemidiaphragm.
3. Moderate calcific atherosclerotic plaque in the coronary arteries.
ABDOMEN and PELVIS: 12/2024
1. SEVERE ACUTE COLITIS in the SIGMOID COLON and distal descending colon. Mild colitis throughout the ascending colon and proximal descending colon. Diagnostic possibilities are (1) an acute infectious colitis, (2) acute inflammatory bowel disease
(ulcerative colitis), or (3) acute ischemic colitis (less likely given the distribution within the colon).
2. Thickened high attenuation endometrium (possibly endometrial hemorrhage or carcinoma).
3. Mild diffuse urinary bladder wall thickening and small urinary bladder diverticula.
4. Acute inferior endplate fracture of L5.
5. Severe facet joint arthrosis at L4/L5 and L5/S1.
CXR 12/2024: Severe Pulmonary edema
ECHO 04/2022: Normal biventricular size and systolic function without regional wall motion abnormality.
Mild concentric left ventricular hypertrophy.
No significant valvular disease.
No prior study available for comparison.
Subjective Dataa
Subjective Data
Date of Service:
Date of Service: January 10, 2025
Chief Complaint: Telecommunicator Follow Up
Subjective:
Patient seen and evaluated this morning. Remains on cangrelor gtt + heparin drip, and sedated on propofol at 35 mcg/kg/min, fentanyl at 100 mcg/hr, dobutamine currently at 2 mcg/kg/min. Currently on IABP at 1: 1 augmentation, with IABP blood
pressure showing 185/67, with right groin A-line going through IABP 132/48. Left groin A-line: 134/49. Patient's heart rate 68, PAP 39-17, and end-tidal CO2: 30. Currently intubated on AC/CMV at 25/350/8/60%, with PIP 30 cmH2O, VTE to 88 cc and
breathing at 25 breaths minute. Patient's daughter, Mary, and son-in-law, Syed, both present at bedside. All questions were answered
Review of Systems
General: Unobtainable - Sedation (+ Intubated)
Objective Data
Data Reviewed
Vital Signs / I&O / Oxygen:
Vital Signs
Temp Pulse Resp BP Pulse Ox
97.6 F 80 18 171/107 97
01/10/25 09:00 01/10/25 09:05 01/10/25 09:05 01/10/25 09:02 01/10/25 09:05
Intake and Output
01/09/25 01/10/25 01/11/25
06:59 06:59 06:59
Intake Total 2721.8 / 2835.9 2489.2 / 2568.8 238.8 / 238.8
Output Total 2990 / 3050 1585 / 1615 70 / 70
Balance -268.2 / -214.1 904.2 / 953.8 168.8 / 168.8
SaO2 [A/C] 96
SaO2 97
Nasal Cannula flow liters per 100
minute
Physical Exam
General: Respiratory Distress (negative), Chills (negative), Sweats (negative) and Other (Intubated/sedated female)
HEENT: Normocephalic, Anicteric and Other (ETT in place)
Cardiovascular: S1-S2 and Peripheral Edema (negative)
Respiratory: Wheeze (negative), Crackles (Bilateral), Rhonchi (negative), Non-Labored Respirations and Stridor (negative)
GI: Soft, Non Distended, Non Tender and Normal Bowel Sounds
Neurology: Tremors (negative) and Other (Sedated although arousable to voice + tactile stimulation)
Skin: Warm, Dry, Cyanosis (negative) and Jaundice (negative)
Labs/Micro/Reports
Lab Data
01/10/25 05:16
01/10/25 05:16
Laboratory Results
01/09/25 01/09/25 01/09/25
12:00 18:35 18:38
APTT 122.3 H 99.4 H
pH 7.41 Cancelled
pCO2 43 H Cancelled
pO2 96 Cancelled
HCO3 27.3 Cancelled
O2 Delivery Level Cancelled
01/09/25 01/10/25 01/10/25
20:33 00:28 05:15
APTT 100.9 H 77.0 H
pH 7.40
pCO2 46 H
pO2 111 H
HCO3 28.5 H
O2 Delivery Level
01/10/25
05:16
APTT
pH 7.38
pCO2 44 H
pO2 81 L
HCO3 26.0
O2 Delivery Level
Microbiology
01/09/25 13:40 Sputum Respiratory Culture - Final
01/09/25 13:40 Sputum Gram Stain - Final
01/09/25 17:11 Nose Nasal Screen MRSA (PCR) - Final
MRSA not detected - performed by PCR methodology.
01/09/25 17:11 Urine Legionella Urinary Antigen - Final
Negative for Legionella pneumophila Serogroup 1 antigen.
A negative result does not rule out the possiblity of
Legionella infection due to other serogroups or species of
Legionella. Clinical correlation is recommended.
01/09/25 17:11 Urine Streptococcus pneumoniae Antigen (M - Final
Negative for Streptococcus pneumoniae antigen.
A negative result does not exclude infection with
Streptococcus pneumoniae. Clinical correlation is
recommended.
01/08/25 08:21 Feces/Stool Salmonella/Shigella Culture - Preliminary
Culture in Progress
01/08/25 08:21 Feces/Stool Campylobacter Culture - Preliminary
Culture in Progress
01/08/25 08:21 Feces/Stool Shiga Toxin Test - Final
No E. coli Shiga Toxin 1 or 2 detected.
01/08/25 08:22 Feces/Stool Stool Leukocytes - Final
--- NOTE | 2025-01-10 08:30 | PTCARENOTE ---
Addendum entered by Arti Barbour RN 01/10/25 10:47:
Dr. Tyler*
Original Note:
pt received from previous RN, sedated on propofol and Fentanyl gtts, RASS -2, CPOT 0. pt follows commands, opens eyes to voice, OJEAD. nods appropriately. see neuro flowsheet, completed w/ previous RN. SR on the monitor, HR 70-80s. RFA IABP 1:1, max
augmentation. SBP via b/l groin Alines, 120-140s, IABP and cuff SBPs 160-170s. Dr. rBay aware. PAP 30-40s/10-20s. CVP ~9. CI>2. Dobutamine gtt running as ordered. palpable pulses. pt mechanically ventilated, ETT #8.0, 23cm@lip. AC 25,TV 350, PEEP
8, FIO2 60%. POX 97%. lungs coarse/diminished anteriorly. oral hygiene performed. pt abdomen s/n, hypoactive BS. R Nare NGT in place, low intermittent suction. Thurman in place, clear yellow urine, Dr. Bray aware of UO. Thurman care provided. L arm
cast in place. b/l groins c/d/i, no s/s of bleeding or hematoma. LFV Cordis/swan in place. LFA sheath in place, flushed, zeroed, and calibrated. RFA IABP in place, RFA sheath in place. PIV x3. heparin gtt running as ordered. Cangrelor gtt running as
ordered. see worklist for VS, i&O, and assessment.
[2025-01-10] MEDS: KCL 100 IV (08:56)
[2025-01-10] MEDS: DOBUTREX 500 MG 250 IV (08:57)
[2025-01-10] MEDS: NSS (PRESERVATIVE FREE) 10 ML IV ×2 (08:58→20:39)
[2025-01-10] MEDS: MIRALAX 17 GRAMS TUBE (08:58)
[2025-01-10] MEDS: PROTONIX IV 40 MG IV ×2 (08:58→20:39)
[2025-01-10] MEDS: VITAMIN B1 100 MG TUBE ×2 (08:59→20:39)
[2025-01-10] MEDS: LOW STRENGTH ASPIRIN 81 MG TUBE (09:00)
[2025-01-10] MEDS: LIDOCAINE 4% PATCH TOPICAL (09:00)
[2025-01-10] MEDS: FOLVITE 1 MG TUBE (09:00)
[2025-01-10] MEDS: VANCOCIN IV (11:23)
[2025-01-10 12:04] LABS: Glucose - Point of Care 154 mg/dl (70-99)
--- NOTE | 2025-01-10 12:15 | PTCARENOTE ---
MVO2 drawn, Dr. Tyler aware of result, Dobutamine gtt titrated per MD. MD aware of difference between IABP/cuff pressures and b/l groin SBPs. pt washed w/ CHG wipes, gown and linens changes, pt shakes when awake, nods head yes to being anxious.
Dr. Norwood aware of lab work from AM. TF started as ordered.
--- NOTE | 2025-01-10 13:12 | W.PN.HOSP.TC ---
Today's Communication/Plan
-
Vent support
Attempt to wean intra-aortic balloon pump to 1:2
Empiric antibiotics
Transfuse to keep hemoglobin above 8
IV diuresis to keep euvolemic
Dobutamine
Cangrelor
NG tube in place, nutrition initiated
Ongoing discussion in terms of timing and place for revascularization
Family inclining toward tertiary facility transfer
Assessment / Plan
Assessment / Plan
Impression
Status post V-fib arrest 01/08/2025.
STEMI.
Cardiogenic shock
VDRF.
Bilateral interstitial infiltrates/groundglass pattern
Stroke alert.
Admitted with acute sigmoid colitis with hematochezia
Acute blood loss anemia requiring transfusion.
Lactic acidosis in the settings of cardiogenic shock, improved
Hypervolemic hyponatremia
Conditions prior to admission:
Essential hypertension
Hypothyroidism on replacement
Alcohol use disorder at risk for withdrawal.
Tobacco use disorder/dependency
Anxiety/depression
History of recent fall with left radius fracture
Plan
Status post V-fib arrest with ROSC on 01/08.
STEMI.
Cardiogenic shock
Urgent catheterization 01/08 with left circumflex large dominant vessel with calcified 99% stenosis, LAD mild to distal chronic occlusive RCA small nondominant with 40 to 50% stenosis. Not able to revascularize left circumflex.
Right heart cath with PCWP 23, PA 37/24, cardiac index 1.6
Echo 01/08: LVEF 60% with mild inferior and inferior lateral hypokinesis, moderate to severe TR, trace MR, estimated PA pressure 50 mmHg.
Unsuccessful attempt to revascularize calcified left circumflex severe stenosis over PCI.
Initiated on intra-aortic balloon pump
Currently on IV heparin, aspirin, cangrelor
Currently on dobutamine
Await CT surgery/interventional cardiology decision on further approach regarding coronary revascularization
Attempt to wean off pulse dose of systemic steroids, currently on hydrocortisone 50 mg IV every 6
VDRF, status post V-fib arrest.
Remains on vent support.
Chest x-ray with bilateral diffuse interstitial pattern likely related to pulmonary edema.
Remains at risk for VAP. Monitor secretions. Empiric antibiotics coverage with vancomycin and Zosyn.
Pulmonary input appreciated
Stroke alert called on 01/08 with concern of unequal pupils.
Follow-up imaging including CT/CT perfusion without evidence of acute CVA. Noted right ICA 70% stenosis
Neurology input appreciated
Monitor closely while on anticoagulation and antiplatelet agents
Acute sigmoid colitis.
Given presentation likely ischemic colitis.
Diarrhea and hematochezia improved. Monitor closely.
Empiric antibiotics Zosyn with goal to avoid bacterial translocation
Alcoholic gastritis, reported maroon stools on admission per
Continue IV PPI
Acute blood loss
Suspect in the settings of hematochezia as well as dilutional effect.
Hemoglobin dipped at the lowest at 8.1. Transfuse to keep hemoglobin above 8
Continue IV PPI twice daily
Nutrition/electrolytes
Initiated on tube feeding Jevity 1.2
Follow BMP
Recent fall with left distal radius fracture on 11/30/2024
-Cast in place was due to follow-up with Dr. Easton 01/07/2025
-Will need to follow-up with Dr. Easton in the office after discharge
#Hypertension
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
#Hypothyroidism
Continue Synthroid 75 mcg p.o. daily when able
#Anxiety/depression
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
#Cigarette nicotine dependency
1 pack a day x 48
#Alcohol use disorder
Drinks 4 to 6 ounces of rum and coke nightly
MSAS protocol, thiamine, folic acid
# Hypervolemic hyponatremia
Serum osmolality 263
Follow TSH. Normal random cortisol
Subjective/Interval History
-
Date of Service: January 10, 2025
Objective Data
-
Labs:
Laboratory Results
01/10/25 01/10/25 01/10/25
05:15 05:16 16:00
WBC 10.9 H Pending
Hgb 8.8 L Pending
Hct 25.1 L Pending
Plt Count 132 D Pending
APTT 77.0 H
HCO3 26.0
Sodium 139 Pending
Potassium 3.6 Pending
Chloride 108 H Pending
Carbon Dioxide 28 Pending
BUN 16 Pending
Creatinine 0.6 Pending
Glucose 149 H Pending
Calcium 7.5 L Pending
Total Bilirubin 0.6 Pending
AST 106 H Pending
ALT 18 Pending
Alkaline Phosphatase 63 Pending
Vital Signs:
Vital Signs
Temp Pulse Resp BP Pulse Ox
97 F 68 25 175/114 100
01/10/25 13:00 01/10/25 13:01 01/10/25 13:00 01/10/25 09:11 01/10/25 13:01
I&O
01/09/25 01/10/25 01/11/25
06:59 06:59 06:59
Intake Total 2721.8 / 2835.9 2489.2 / 2568.8 697.0 / 697.0
Output Total 2990 / 3050 1585 / 1615 230 / 230
Balance -268.2 / -214.1 904.2 / 953.8 467.0 / 467.0
Physical Exam
-
General: Well Developed and No Apparent Distress
HEENT: Normocephalic, Atraumatic, Moist Mucous Membranes and Other (ET tube with clear secretion); Negative PERRLA (Right pupil 2 mm reactive/left pupil 4 mm reactive to light)
Respiratory: Decreased Breath Sounds; Negative Wheezes or Rhonchi
Cardiac: Regular Rhythm and S1/S2; Negative Murmur, Rub or Gallop
GI: Soft, Nontender, Nondistended and Normal Bowel Sounds; Negative Organomegaly
Rectal: Deferred by Provider
Musculoskeletal: No Clubbing, No Cyanosis and No Edema
Skin: Negative Rash
Neuro: Awake, Nonfocal/Grossly Intact and Other (Awake, intubated, following simple commands)
[2025-01-10] MEDS: KENGREAL 255 MCG IV (13:49)
[2025-01-10] MEDS: NITROPRESS 252 MG IV (15:03)
--- NOTE | 2025-01-10 15:44 | W.PN.CD ---
Addendum entered and electronically signed by Kit Tyler MD 01/11/25 09:11:
Addendum to satisfy CDI inquiry:
patient presentation most consistent with acute systolic heart failure
Original Note:
Today's Communication / Plan
-
transfer to [facility] pending
watch UOP
wean vent as able
swan guided managment of shock
cont. IABP 1:1
Impression / Plan
-
Impression/Plan: 69-year-old woman with past medical history of hypertension, hypercholesterolemia, EtOH use/abuse, chronic tobacco abuse and recent fall admitted with abdominal pain with an episode of bloody diarrhea, diagnosed with colitis.
Hospital course was subsequently complicated by ST elevation and VF arrest leading to intubation/VDRF and cardiac catheterization, which demonstrated severe CAD with cardiogenic shock requiring IABP MCS.
#Inferior MT
-VF arrest in hospital with subsequent evidence of IMI on ECG.
-Cardiac catheterization revealed likely EMPLOYMENT SPECIALIST of dLAD, and severe, calcified LCx, s/p unsuccessful attempt PCI. Patient had multiple attempts at balloon angioplasty but still with residual severe stenosis. Inability to deliver Shockwave. And
concern that the lesion will require rotational atherectomy for successful recanalization.
-PA catheter placed with demonstrated cardiogenic shock (SCAI class E). IABP placed.
-This has subsequently resolved with CI consistently > 2.2. Pressors have been weaned. Currently Dobutamine 2 only.
-Troponin peaked at 16.4.
-Lactate 1.1 --> 7.0 --> 6.5 --> 4.6 --> 1.6 --> 1.1
-From a neurologic standpoint, she was spontaneously moving all extremities and neurology is prescribing supportive care.
-Discussed at length with CT surgery, non-invasive cardiology and interventional cardiology colleagues. The patient remains hemodynamically stable and troponin has peaked with minimal LV function impact. VF is almost certainly related to ischemia
(ST elevations seen on telemetry prior to VF). - Patient requires revascularization prior to discharge but not emergently as no evidence of ongoing active ischemia or cardiogenic shock. Would favor stabilization of her respiratory status prior to
PCI, and would favor PCI at a facility with rotational atherectomy capabilities gives concern that lesion may not be successfully treated with orbital atherectomy. Patient discussed with Dr. Curtis Farrell at [facility] and accepted for transfer to [facility]
CCU by CCU attending Dr. Reyes Walsh.
-CABG can be considered prior to PCI as an emergent bailout strategy but would strongly favor PCI over CABG as upfront strategy
-In the mean time, will continue IABP at 1:1 as it pay be providing improved coronary perfusion
-Hemodynamic profile today is with acceptable filling pressures (PAD 18, suggesting PCWP 15 based on prior correlation), accpetable CI of 2.1 on dobutamine 2, and high SVR --> will start nitroglycerin targeting MAP 70-90 (of note, had a very
hypotensive response to nipride earlier today at low dose of 0.3)
#VDRF
-Patient's CT on 01/06/2025 with increased interstitial markings concerning for CHF versus pneumonia versus pneumonitis - but preceded her VF arrest.
-Given ongoing high FiO2 requirement despite PCWP 15 and resolution of cardiogenic shock, picture appears most consistent with ARDS. Favor low stretch ventilation protocol.
-Vent management per pulmonology/critical care.
#Stroke alert
-Called 01/08/2025 due to anisocoria.
-Patient awake and responsive. Mildly asymmetric pupils left slightly greater than right which appear reactive.
-Head CT negative for ICH.
-She is moving extremities and responding appropriately to questions.
-Neurology recommending supportive care.
#Severe acute colitis
-Patient's initial presentation.
-Currently no acute bleeding but Hb continues to drift
-S/P 2 units PRBCs.
-transfuse for Hb >8
IABP reviewed - augmenting appropriately
Critical Care Time = 120 minutes (extensive discussions with family, nursing, cardiology and crit care colleagues here, managment of IABP and cardiogenic shock, extensive review of records and films, discussions with referring physicians at [facility])
DATA:
CT Chest/abdomen/pelvis, 01/06/2025:
IMPRESSION:
CHEST CTA:
1. SEVERE GROUND-GLASS OPACITY throughout the left upper and lower lobes, right upper lobe, and right middle lobe mixed with increased interstitial markings which is new from 10/28/2023. Diagnostic possibilities are (1) severe acute alveolar
cardiogenic pulmonary edema, (2) severe pneumonia, or (3) an acute inflammatory pneumonitis.
2. Moderate elevation of the right hemidiaphragm.
3. Moderate calcific atherosclerotic plaque in the coronary arteries.
ABDOMEN and PELVIS:
1. SEVERE ACUTE COLITIS in the SIGMOID COLON and distal descending colon. Mild colitis throughout the ascending colon and proximal descending colon. Diagnostic possibilities are (1) an acute infectious colitis, (2) acute inflammatory bowel disease
(ulcerative colitis), or (3) acute ischemic colitis (less likely given the distribution within the colon).
2. Thickened high attenuation endometrium (possibly endometrial hemorrhage or carcinoma).
3. Mild diffuse urinary bladder wall thickening and small urinary bladder diverticula.
4. Acute inferior endplate fracture of L5.
5. Severe facet joint arthrosis at L4/L5 and L5/S1.
Cardiac Catheterization/PCI/MCS, 01/08/2025:
CONCLUSIONS
1. Significantly elevated right and left-sided filling pressures with reduced cardiac output and elevated systemic vascular resistance consistent with acute cardiogenic shock (SCAI stage E; PADDED PRODUCTS FINISHER is less than 0.6)
2. Severe multivessel coronary artery disease with LAD EMPLOYMENT SPECIALIST, 99% calcified mid left circumflex stenosis and 80% ostial OM stenosis.
3. Plain old balloon angioplasty of the heavily calcified 99% mid left circumflex stenosis with a 2.5 x 15 mm NC balloon at 28 niko with severe residual waist.
4. Unsuccessful PCI with residual 99% stenosis and a heavily calcified lesion with MARION-3 flow into the distal vessel.
5. Successful placement of a 40 cc intra-aortic balloon pump via right common femoral artery.
Transthoracic Echocardiogram, 01/08/2025:
CONCLUSIONS
Normal left ventricular chamber size and overall systolic function; left
ventricular ejection fraction is 60% by modified Rivas's method. There is
mild inferior and inferolateral hypokinesis.
Normal right ventricular size and function.
Mildly thickened mitral valve leaflets with trace mitral regurgitation.
Sclerotic, trileaflet aortic valve with normal leaflet excursion and no
regurgitation seen.
Tricuspid valve opens normally with moderate to severe tricuspid regurgitation.
Estimated pulmonary artery pressure of 50 mmHg, .
Compared to prior study 05/06/2022 there is mild hypokinesis as noted and PA
pressure is now 50 mmHg.
CXR, 01/09/2025:
IMPRESSION:
Lines and tubes as described above.
Stable pulmonary changes suggestive of pulmonary edema versus pneumonia.
Stable left-sided rib fractures.
Physical Exam
Vital Signs/Labs
Vital Signs
Temp Pulse Resp BP Pulse Ox
36.1 C 65 24 175/114 99
01/10/25 15:00 01/10/25 15:36 01/10/25 15:36 01/10/25 09:11 01/10/25 15:36
01/09/25 01/10/25 01/11/25
06:59 06:59 06:59
Actual Weight 48.6 kg 50 kg
PT 17.9 Sec (11.4-14.6) H 01/08/25 13:42
INR 1.45 01/08/25 13:42
APTT 77.0 Sec (23.4-35.0) H 01/10/25 05:15
Magnesium 2.5 mg/dl (1.6-2.3) H 01/10/25 05:16
Triglycerides 118 mg/dl (10-149) 01/08/25 20:35
Triglycerides Cancelled 01/08/25 20:35
Free T4 0.93 ng/dl (0.78-2.19) 01/08/25 06:17
01/06/25 01/06/25 01/08/25
14:33 15:20 06:17
Xki-K-Tosiinthado Pept Cancelled [id number]
01/10/25
05:16
Wgm-Y-Tmndldrzlwt Pept 3100
LAB Results
01/08/25 01/08/25 01/09/25
13:42 13:42 05:12
Troponin I 0.385 H* Cancelled 16.400 H*
01/09/25
11:03
Troponin I 15.900 H*
Physical Exam
Cardiovascular: Rhythm & rate is regular
Respiratory: Other (vented)
Other: Cath Site (bilateral groin sites cdi)
Data Reviewed
-
Date of Service: January 10, 2025
Medical Decision Making: External Notes, Reviewed Test Results, Tests Ordered, Independent Historian Assessment, Test Interpretation and Review of Case with other Provider
EKG: Tracing Personally Visualized and interpreted and Report Reviewed by me
Echo: Tracing Personally Visualized and interpreted and Report Reviewed by me
X-Ray/CT/US/MRI/NUC/PET: Image Personally Visualized and interpreted and Report Reviewed by me
Medical Tests (PFT, Pathology etc): Image Personally Visualized and interpreted and Report Reviewed by me
Labs: Labs Reviewed by me and Labs Ordered by me
Critical Care Time (in minutes): 120
--- NOTE | 2025-01-10 15:50 | PTCARENOTE ---
Dr. Tyler and Dr. Norwood at bedside to speak w/ family. Nipride gtt started as ordered, SBP dropped to 70s/80s upon start of gtt, gtt stopped, SBP recovered to 110-120s. Dr Tyler aware.
RT at bedside, suctioned pt via ETT, HR dropped to 30s, Dr. Tyler aware. transcutaneous pads placed.
[2025-01-10 16:43] LABS: Hematocrit 26.0 % (37.0-47.0); Hemoglobin 9.3 g/dL (12.0-16.0); Mean Corp Hgb Conc. 35.8 g/dL (33.0-37.0); Mean Corpuscular Volume 92.9 fL (81.0-99.0); Platelet Count 120 10^3/uL (130-400); Red Cell Dist. Width 19.3 % (11.5-14.5)
[2025-01-10] MEDS: NITROGLYCERIN PREMIX 250 IV (16:51)
[2025-01-10 17:51] LABS: ALT (SGPT) 16 U/L (0-35); AST (SGOT) 77 U/L (14-36); Albumin 2.8 g/dl (3.5-5.0); Alkaline Phosphatase 63 U/L (38-126); Blood Urea Nitrogen 18 mg/dl (7-17); Calcium 7.4 mg/dl (8.4-10.2); Carbon Dioxide 26 mmol/L (22-30); Chloride 111 mmol/L (98-107); Estimated Creatinine Clearance 60 ml/min; Glucose 134 mg/dl (70-99); Magnesium 2.3 mg/dl (1.6-2.3); Potassium 4.2 mmol/L (3.5-5.1); Sodium 139 mmol/L (135-145); Total Protein 4.8 g/dl (6.3-8.2); eGFR > 60.00
[2025-01-10 18:35] LABS: Glucose - Point of Care 141 mg/dl (70-99)
--- NOTE | 2025-01-10 20:25 | PTCARENOTE ---
pt received from previous rn. Sedated and intubated. Patient arouses to voice, follows commands, OJEDA. Pupils slightly sluggish, R pupil 1, L 1. NSR per tele monitor. HR 80s. +pulses, ETT 8.0 at 23 cm at lip; Ventilator settings A/C 60%/25/350/8. Pox
97% lungs diminished and coarse Thurman draining clear yellow urine. NGT @ R nare connected to low intermittent wall suction. hypoactive bs. Tube feed. Surgical sites intact; Left arm cast present; IABP present in right femoral access - frequency
1:1, Left femoral arterial A-line present, [place]-linda present in left femoral venous access - all lines leveled and zeroed; PIV intact.
gtts:
Dobutamine.
Heparin
Cangrelor
Propofol
Fentanyl
Nitro
--- NOTE | 2025-01-11 | PTCARENOTE ---
no changes in assessment, awaiting transfer to [facility].
[2025-01-11 00:23] LABS: Glucose - Point of Care 154 mg/dl (70-99)
[2025-01-11] MEDS: DIPRIVAN 100 IV (02:07)
--- NOTE | 2025-01-11 03:45 | W.PN.UPDATE ---
Update Note
Progress Note Update
-Transport here @ 0320 to transfer pt to [facility]
-Report given to Dr. Fito Carrasco @ [facility] ([phone])
-IABP @ 1:1
-Drips: Heparin @ 450 u/hr, Cangrelor @ 0.75 mcg/kg/min, Dobutamine @ 2 mcg/kg/min, NTG @ 10 mcg/min, Fentanyl @ 100 mcg/hr, Propfol @ 40 mcq/kg/min
-Cactus parameters: CI 2.33, CO 3.26, PAP 43/23, CVP 16, SVR 1899
-Vent settings: A/C, TV 350, R 25, PEEP 8, FIO2 66%
-Tube Feed: Osmolite @ 20 mL /hr (placed on hold)
-PT left CVICU @ 0400 on 01/11/25
[2025-01-11] MEDS: SUBLIMAZE 50 MCG IV (03:58)
--- NOTE | 2025-01-11 04:00 | RESPNOTE ---
PT is being transferred to [place] for care. PT will remain intubated/sedated for the transport. PT was switched over to the transport vent and vitals remained stable. BVM was given to the team.
--- NOTE | 2025-01-11 04:36 | PTCARENOTE ---
Addendum entered by Marie Jacobs RN 01/11/25 04:41:
pt taken to the [facility].
Original Note:
[facility] transport team at bedside. Pt taken by transport
--- NOTE | 2025-01-11 10:30 | CM ---
Patient transferred to [facility].
== END 2025-01-11 04:48 | disposition short-term general hospital (02) | DRG 981 ==
LOC: CVICU 19:07
PROVIDERS: Anesthesiology; Clinical Nurse Specialist Family Health; Emergency Medicine; Family Medicine; Internal Medicine Cardiovascular Disease; Internal Medicine Critical Care Medicine; Internal Medicine Interventional Cardiology; Nurse Practitioner; Nurse Practitioner Gerontology; Physician Assistant; Student in an Organized Health Care Education/Training Program; ADMITTING PHYSICIAN Internal Medicine; ATTENDING PHYSICIAN Internal Medicine; CONSULT PHYSICIAN Internal Medicine; CONSULT PHYSICIAN Internal Medicine Cardiovascular Disease; CONSULT PHYSICIAN Internal Medicine Gastroenterology; EMERGENCY PHYSICIAN Emergency Medicine; FAMILY PHYSICIAN Family Medicine; OTHER PHYSICIAN Psychiatry & Neurology Clinical Neurophysiology; OTHER PHYSICIAN Thoracic Surgery (Cardiothoracic Vascular Surgery)
PROC: 5A2204Z Restoration of Cardiac Rhythm, Single (ICD-10-PCS; 2025-01-08)
PROC: 5A02210 Assistance with Cardiac Output using Balloon Pump, Continuous (ICD-10-PCS; 2025-01-08)
PROC: 0BH17EZ Insertion of Endotracheal Airway into Trachea, Via Natural or Artificial Opening (ICD-10-PCS; 2025-01-08)
PROC: 4A023N8 Measurement of Cardiac Sampling and Pressure, Bilateral, Percutaneous Approach (ICD-10-PCS; 2025-01-08)
PROC: 30233N1 Transfusion of Nonautologous Red Blood Cells into Peripheral Vein, Percutaneous Approach (ICD-10-PCS; 2025-01-08)
PROC: 5A1945Z Respiratory Ventilation, 24-96 Consecutive Hours (ICD-10-PCS; 2025-01-08)
PROC: B2111ZZ Fluoroscopy of Multiple Coronary Arteries using Low Osmolar Contrast (ICD-10-PCS; 2025-01-08)
PROC: 02703ZZ Dilation of Coronary Artery, One Artery, Percutaneous Approach (ICD-10-PCS; 2025-01-08)
DX: K55.039 Acute (reversible) ischemia of large intestine, extent unspecified (principal); I21.19 ST elevation (STEMI) myocardial infarction involving other coronary artery of inferior wall; I46.2 Cardiac arrest due to underlying cardiac condition; J96.01 Acute respiratory failure with hypoxia; I49.01 Ventricular fibrillation; R57.0 Cardiogenic shock; J96.02 Acute respiratory failure with hypercapnia; K29.21 Alcoholic gastritis with bleeding; I50.21 Acute systolic (congestive) heart failure; E87.1 Hypo-osmolality and hyponatremia; R64 Cachexia; E46 Unspecified protein-calorie malnutrition; D62 Acute posthemorrhagic anemia; E87.20 Acidosis, unspecified; G93.1 Anoxic brain damage, not elsewhere classified; H57.02 Anisocoria; R00.1 Bradycardia, unspecified; E83.42 Hypomagnesemia; J43.9 Emphysema, unspecified; E78.00 Pure hypercholesterolemia, unspecified; E87.6 Hypokalemia; I25.10 Atherosclerotic heart disease of native coronary artery without angina pectoris; I25.82 Chronic total occlusion of coronary artery; F10.10 Alcohol abuse, uncomplicated; I11.0 Hypertensive heart disease with heart failure; G89.4 Chronic pain syndrome; I65.21 Occlusion and stenosis of right carotid artery; E03.9 Hypothyroidism, unspecified; F41.9 Anxiety disorder, unspecified; F32.A Depression, unspecified; K21.9 Gastro-esophageal reflux disease without esophagitis; G43.909 Migraine, unspecified, not intractable, without status migrainosus; N39.3 Stress incontinence (female) (male); F17.210 Nicotine dependence, cigarettes, uncomplicated; M81.0 Age-related osteoporosis without current pathological fracture; Z11.52 Encounter for screening for COVID-19; Z91.81 History of falling; Z68.21 Body mass index [BMI] 21.0-21.9, adult
CPT/HCPCS: 0042T; 33967; 36600; 70450; 70496; 70498; 71045; 71275; 74018; 74177; 80048; 80053; 80202; 80306; 81003; 81015; 82010; 82077; 82248; 82330; 82533; 82805; 82810; 82962; 82977; 83605; 83615; 83735; 83880; 83930; 83935; 84100; 84132; 84295; 84439; 84443; 84478; 84484; 85014; 85018; 85025; 85027; 85347; 85610; 85652; 85730; 86140; 86850; 86900; 86901; 86920; 87040; 87045; 87046; 87070; 87077; 87205; 87427; 87449; 87502; 87641; 87811; 87899; 89055; 92941; 92950; 93005; 93307; 93460; 94002; 94003; 94640; 96361; 96374; 96375; 97163; 99152; 99153; 99285; C1725; C1761; C1887; C1894; C9460; P9016; P9047; Q9957; Q9967